=== PATIENT | female | born 1950 | race Caucasian/White ===

== ENCOUNTER 2017-03-19 11:48 | Observation (INO) | payer OTHER ==
[~2017-03-19] VITALS: Ht 154.9 cm; Wt 130.4 kg
[2017-03-19] MEDS ORDERED: FURO80TA2 PO (11:59)
[2017-03-19] MEDS ORDERED: LISI-542 PO (11:59)
[2017-03-19] MEDS ORDERED: NS 1,000 ML IV SCH (13:15)
[2017-03-19] MEDS ORDERED: PEPC1TAB4 PO (14:17)
[2017-03-19] MEDS ORDERED: SIME1CAP PO (14:17)
[2017-03-19 14:29] LABS: BASO % 0.2 % (0.0-1.0); EOS % 0.1 % (0.0-3.0); IMMATURE GRANULOCYTE % 0.5 % (0-0); LYMPH # 0.9 10^3/uL (1.5-4.5); LYMPH % 9.2 % (24.0-44.0); MEAN CORPUSCULAR HEMOGLOBIN 30.5 pg (27.0-33.0); MEAN CORPUSCULAR HGB CONC 32.6 g/dl (32.0-36.5); MEAN CORPUSCULAR VOLUME 93.6 fl (80.0-96.0); MONO # 0.5 10^3/uL (0.0-0.8); NEUTROPHILS # 8.5 10^3/uL (1.8-7.7); PLATELET COUNT, AUTOMATED 217 10^3/uL (150-450); RED CELL DISTRIBUTION WIDTH 13.3 % (11.5-14.5)
[2017-03-19 14:41] LABS: ALBUMIN/GLOBULIN RATIO 0.79 (1.00-1.93); ALKALINE PHOSPHATASE 73 U/L (45-117); ALT/SGPT 17 U/L (12-78); AMYLASE 29 U/L (25-115); ANION GAP 8 MEQ/L (8-16); AST/SGOT 14 U/L (15-37); BILIRUBIN,DIRECT 0.6 MG/DL (0.0-0.2); BILIRUBIN,TOTAL 2.5 MG/DL (0.2-1.0); BLOOD UREA NITROGEN 15 MG/DL (7-18); CALCIUM LEVEL 8.6 MG/DL (8.8-10.2); CARBON DIOXIDE LEVEL 26 MEQ/L (21-32); CHLORIDE LEVEL 107 MEQ/L (98-107); CREATININE FOR GFR 1.05 MG/DL (0.55-1.02); GLOMERULAR FILTRATION RATE 55.5 (>45); GLUCOSE, FASTING 102 MG/DL (80-110); POTASSIUM SERUM 3.9 MEQ/L (3.5-5.1); SODIUM LEVEL 141 MEQ/L (136-145); TOTAL PROTEIN 6.8 GM/DL (6.4-8.2)
--- NOTE | 2017-03-19 15:40 | REP ---
CT ABDOMEN AND PELVIS WITH IV CONTRAST: TECHNIQUE: Axial contrast enhanced images from the lung bases to the pubic symphysis using 100 mL Isovue 370 intravenous contrast material with multiplanar reformations. Visualized lung bases demonstrate no acute infiltrate. There is a large hiatal hernia. The liver is unremarkable. The patient has had a cholecystectomy. The spleen, adrenals, and pancreas are unremarkable. There are small cysts in the kidneys. There is no hydroureteronephrosis. There is no abdominal aortic aneurysm. There is no adenopathy. There is no free air or free fluid. No bowel wall thickening is seen. There is no evidence of appendicitis. There is a small supraumbilical anterior abdominal wall hernia containing some edematous fat. The left ovary is mildly enlarged with surrounding streaky inflammatory and edematous change. No pelvic mass is seen. The urinary bladder is unremarkable. IMPRESSION: Large hiatal hernia. Status post cholecystectomy. Small supraumbilical hernia in the midline containing edematous fat. Left ovary is somewhat enlarged with ill-defined streaky density surrounding it, having an edematous and inflamed appearance. No pelvic mass or adenopathy. Signed by Ritchie Hernandez MD 03/19/2017 07:55 P
[2017-03-19] MEDS ORDERED: FUROSEMIDE 100 MG/10 ML VIAL (J1940) IV ONE (15:45)
[2017-03-19 20:20] VITALS: BP 124/65
[2017-03-19] MEDS ORDERED: ONDANSETRON 4MG/2ML VIAL (J2405) IV PRN (21:15)
[2017-03-19] MEDS ORDERED: ACETAMINOPHEN TAB 650MG DOSE (2X325MG) PO ONE (21:15)
[2017-03-19] MEDS ORDERED: ISOVUE-370 76% 100ML VIAL (Q9967) ONE (21:31)
--- NOTE | 2017-03-19 23:04 | HPEPDOC ---
[facility] Medical History & Physical History and Physical Primary care provider: Dr. Noemy Cisneros Date of Admission: 03/19/2017 Attending: Dr. Calli Crawford CHIEF COMPLAINT: Generalized malaise and nausea 2-3 days HISTORY OF PRESENT ILLNESS: Miss Cruz is a 67-year-old female who has been suffering from subjective fevers, chills, nausea, lack of appetite, and headaches for the past 2-3 days. She presented to urgent care earlier today for what she believed to be an influenza infection. An abdominal x-ray was taken at urgent care and she was told that she had multiple fluid levels, therefore she was sent to the emergency department for further evaluation. In the emergency department an abdominal film was repeated read as nonspecific bowel gas pattern. A CT scan was performed and was noted to be normal with the exception of a mildly enlarged and edematous left ovary. Dr. Ramirez of [facility] was apparently contacted by the ED provider, and was supposedly going to come in to see and evaluate her, but I cannot verify this as the original ED provider who saw the patient is now off shift. Is unclear whether or not Dr. Underwood has come see and evaluate the patient has there is no note, at this point I would recommend only contacting him if her symptoms worsen by morning. It was also noted that she does have some lower extremity bilateral anterior tibial warmth and erythema , therefore she was given a dose of Ancef in the ED under the suspicion of cellulitis. When I came to see and evaluate the patient her son was in the room who indicated that they have been red for many months if not a year now, therefore I suspect that this is chronic venous stasis dermatitis rather than cellulitis, especially in the absence of leukocytosis or fever. A BNP was also noted to be high, therefore a dose of Lasix was administered, on my evaluation she does not have any symptoms of shortness of breath, orthopnea, paroxysmal nocturnal dyspnea, and on physical exam her lungs are completely clear with no crackles, therefore I do not feel that she is having an acute exacerbation of CHF. She will be admitted tonight for observation, I suspect that she does have a viral illness. ALLERGIES: Succinylcholine CODE STATUS: Full code PAST MEDICAL HISTORY: Essential hypertension Chronic lower extremity edema, she is not aware of a diagnosis of CHF this time. PAST SURGICAL HISTORY: section 2 Hernia repair Cholecystectomy Kidney stone removal SOCIAL HISTORY: She lives at home with her son and one cat. She denies any recent travel. She denies any recent sick contacts. She has never smoked, she does not drink any alcohol, she does not do any recreational drugs. She was a [id number] mother, and one never retires from this. FAMILY HISTORY: Her father had a heart attack and at the age of 55. Her mother has CHF but is still alive at the age of 90. She has a brother with multiple heart problems, but no heart attacks. There is no family history of diabetes, stroke, or cancer. REVIEW OF SYSTEMS: Constitutional: She admits to subjective fevers, chills, nausea, and loss of appetite. She denies rigors, night sweats, or weight loss. HEENT: Patient denies blurred or double vision, transient visual disturbances, postnasal drip, epistaxis, sore throat, difficulty chewing or swallowing food. Cardiovascular: Patient denies chest discomfort/pain, palpitations, exertional dyspnea, orthopnea, claudication. She does suffer from chronic bilateral lower extremity edema for which she is taking Lasix, and it is usually reasonably well -controlled. Respiratory: Patient denies dyspnea, wheezing, cough, hemoptysis, sputum production. Gastrointestinal: Patient admits to nausea. Denies vomiting, diarrhea, constipation, abdominal pain, melena, hematochezia, hematemesis, jaundice. Genitourinary: Patient denies any frequency, urgency, burning. She denies any lower abdominal pain/discomfort either. Integument: She admits to having chronic redness of her bilateral lower extremities on the shins, and this is confirmed by her son who is in the room PHYSICAL EXAMINATION: Vitals: Temperature 98.9, pulse 98, respiratory rate 18, blood pressure 133/72, pulse oximetry is 99% on room air General: Awake, alert, oriented 3. She is in mild distress. She is sitting upright in a chair in the room covered with a multitude of blankets. HEENT: Head normocephalic atraumatic, pupils equally reactive to light and accommodation, conjunctiva are pink, sclera are nonicteric, buccal mucosa is pink and moist with no lesions in the oropharynx. Dentition is poor. Hearing is grossly intact to conversation. Respiratory: Clear to auscultation bilaterally with no wheezes, rales, or rhonchi. Cardiovascular: Regular rate and rhythm, with no rubs, gallops, or murmur. Abdomen: She is diffusely mildly tender to deep palpation, I cannot elicit any additional or specific pain in the left lower quadrant. Otherwise, abdomen is soft, nondistended, no hepatosplenomegaly appreciated, although her exam is quite limited by her body habitus. Bowel sounds are hypoactive. Extremities: 2+ pulses in the radial and dorsalis pedis bilaterally. No evidence of clubbing or cyanosis. She does have 1+ pitting edema of the lower extremities bilaterally. She does have erythema of the bilateral anterior tibias , and on the left lower extremity there is a 1cm rounded irregularity in the skin which appears to be either a healed over ulcer or an old injury that has now healed, and I suspect it to be scar tissue. IMAGING: CT scan reveals a large hiatal hernia which the family is well aware of. Otherwise a small supraumbilical hernia in the midline containing edematous fat. Left ovary is somewhat enlarged with ill-defined streaky density surrounding it having an edematous and inflamed appearance. Otherwise no additional pelvic mass or adenopathy. There is no evidence of appendicitis. The liver is unremarkable. There is no hydroureteronephrosis. No bowel wall thickening or free air or free fluid. ASSESSMENT: 1. Viral illness 2. Hypertension 3. Chronic lower extremity edema 4. Venous stasis dermatitis of the bilateral lower extremities 5. DVT prophylaxis PLAN: Will provide supportive care for her abdominal viral illness. Flu swab was negative. Pain and nausea medications are available PRN. We will continue with her usual home dose of Lasix and lisinopril for her hypertension and chronic lower extremity edema. No acute treatment is required for her venous stasis dermatitis. DVT prophylaxis will be achieved with Lovenox. She is being admitted for observation, she'll be signed out to Dr. Reyes in the morning. If her symptoms worsen, consideration may be made to reach out to Dr. Underwood again in the morning regarding her mildly enlarged and edematous ovary, however she is not specifically complaining of any pain at this time and on exam I cannot localize any pain in the left lower quadrant anymore than the rest of her belly. My preceptor for this patient encounter was physically present in the building during the encounter and was fully available. As needed, all aspects of the patient interview, examination, medical decision making process, and medical care plan development were reviewed and approved by the preceptor. Preceptor is aware and concurs with the plan as stated in the body of this note and will attest to such by his/her cosignature. Vital Signs Vital Signs Date Time Temp Pulse Resp B/P (MAP) Pulse Ox O2 Delivery O2 Flow Rate FiO2 03/19/17 20:33 100.5 116 18 121/65 (83) 95 03/19/17 20:20 Room Air Laboratory Data Labs 24H Laboratory Tests 2 03/19/17 13:55: White Blood Count 10.0, Red Blood Count 4.20, Hemoglobin 12.8, Hematocrit 39.3, Mean Corpuscular Volume 93.6, Mean Corpuscular Hemoglobin 30.5, Mean Corpuscular Hemoglobin Concent 32.6, Red Cell Distribution Width 13.3, Platelet Count 217, Neutrophils (%) (Auto) 85.0H, Lymphocytes (%) (Auto) 9.2L, Monocytes (%) (Auto) 5.0, Eosinophils (%) (Auto) 0.1, Basophils (%) (Auto) 0.2, Neutrophils # (Auto) 8.5H, Lymphocytes # (Auto) 0.9L, Monocytes # (Auto) 0.5, Eosinophils # (Auto) 0.0, Basophils # (Auto) 0.0, Immature Granulocyte # (Auto) 0.1H, Nucleated Red Blood Cells % (auto) 0.0, Anion Gap 8, Glomerular Filtration Rate 55.5, Lactic Acid Level 1.3, Calcium Level 8.6L, Aspartate Amino Transf (AST/SGOT) 14L, Alanine Aminotransferase (ALT/SGPT) 17, Alkaline Phosphatase 73, Total Bilirubin 2.5H, Direct Bilirubin 0.6H, Total Creatine Kinase 34, Creatine Kinase MB 1.0, Creatine Kinase MB Relative Index 2.94, Troponin I < 0.02, LW-Qzf-G-Type Natriuretic Peptide 2283H, Total Protein 6.8, Albumin 3.0L, Albumin/Globulin Ratio 0.79L, Amylase Level 29, Lipase 80 03/19/17 14:29: Urine Appearance CLOUDYH, Urine Color ANGELA, Urine pH 5.0, Urine Specific Logan 1.026, Urine Protein 2+H, Urine Glucose (UA) NEGATIVE, Urine Ketones 1+H , Urine Urobilinogen 4.0H, Urine Bilirubin NEGATIVE, Urine Leukocyte Esterase NEGATIVE, Urine Blood 1+H, Urine Nitrite NEGATIVE, Urine WBC (Auto) 25H, Urine RBC (Auto) 6H, Urine Hyaline Casts (Auto) 1, Urine Bacteria (Auto) 1+H, Urine Squamous Epithelial Cells 11, Urine Mucus (Auto) SMALL, Urine Sperm (Auto) CBC/BMP Laboratory Tests 03/19/17 13:55 Red Blood Count 4.20, Mean Corpuscular Volume 93.6, Mean Corpuscular Hemoglobin 30.5, Mean Corpuscular Hemoglobin Concent 32.6, Red Cell Distribution Width 13.3 , Neutrophils (%) (Auto) 85.0 H, Lymphocytes (%) (Auto) 9.2 L, Monocytes (%) ( Auto) 5.0, Eosinophils (%) (Auto) 0.1, Basophils (%) (Auto) 0.2, Neutrophils # ( Auto) 8.5 H, Lymphocytes # (Auto) 0.9 L, Monocytes # (Auto) 0.5, Eosinophils # ( Auto) 0.0, Basophils # (Auto) 0.0 Microbiology Microbiology 03/19/17 Blood Culture, Received Pending 03/19/17 Blood Culture, Received Pending 03/19/17 Influenza Virus Type A Antigen - Final, Complete 03/19/17 Influenza Virus Type B Antigen - Final, Complete 03/19/17 Urine Culture, Received Pending Home Medications Scheduled Furosemide (Furosemide) 80 Mg Tab, 80 MG PO DAILY Lisinopril (Lisinopril) 5 Mg Tab, 5 MG PO DAILY Allergies Coded Allergies: Succinylcholine (Verified Allergy, Unknown, FAMILY HX OF ANAPHYLAXIS, 03/19) Attending Note Attending Note I have seen and examined the above patient and agree with the H and P as documented. ADE BALL DO Mar 19, 2017 23:04 CALLI CRAWFORD Mar 20, 2017 12:49
[2017-03-20 06:00] VITALS: BP 123/57
[2017-03-20 06:21] LABS: MEAN CORPUSCULAR HEMOGLOBIN 30.1 pg (27.0-33.0); MEAN CORPUSCULAR HGB CONC 32.2 g/dl (32.0-36.5); MEAN CORPUSCULAR VOLUME 93.4 fl (80.0-96.0); RED CELL DISTRIBUTION WIDTH 13.4 % (11.5-14.5); WHITE BLOOD COUNT 8.7 10^3/uL (4.0-10.0)
[2017-03-20 06:41] LABS: CALCIUM LEVEL 8.2 MG/DL (8.8-10.2); CREATININE FOR GFR 1.27 MG/DL (0.55-1.02); GLOMERULAR FILTRATION RATE 44.5 (>45); POTASSIUM SERUM 3.9 MEQ/L (3.5-5.1)
[2017-03-20] MEDS ORDERED: NS 1,000 ML IV SCH ×2 (07:30→08:15)
[2017-03-20] MEDS: ACETAMINOPHEN TAB 650MG DOSE (2X325MG) PO PRN ×2 (08:38→19:49)
[2017-03-20] MEDS: ENOXAPARIN 40 MG/0.4 ML SYRINGE (J1650) SC SCH (08:39)
[2017-03-20] MEDS ORDERED: LISINOPRIL 5 MG TAB PO SCH (09:00)
[2017-03-20] MEDS: CEFDINIR 300 MG CAP (OMNICEF) PO SCH ×2 (09:00→20:18)
[2017-03-20] MEDS ORDERED: FUROSEMIDE 80 MG TAB PO SCH (09:00)
[2017-03-20 11:25] LABS: CARCINOEMBRYONIC ANTIGEN 0.6 NG/ML (<2.5)
[2017-03-20 11:54] LABS: CA 125 5.7 U/ML (<30.2)
--- NOTE | 2017-03-20 12:12 | IPNPDOC ---
Text Note Date of Service The patient was seen on 03/20/17. NOTE Subjective: Patient is a 67 year old female with a PMHx of HTN and Chronic LE edema who presented to urgent care initially for chills and upset stomach. Patient received an abdominal XR that revealed there was multiple fluid levels and was sent to the ER. In the ER patient had a CT scan that revealed a large hiatal hernia and left ovarian swelling. In the ER patient was given a dose of Cefazolin for a suspected cellulitis, started on IV fluids and then given a dose of Lasix for an elevated BNP. Patient was seen and examined at the bedside. Currently she notes that she feels cold and is complaining of chills. Patient notes that she been having subjective fevers. She denies any cough, diarrhea, nausea, vomiting or dysuria. She notes that her LE are always swelling and notes that the redness may be new. Objective: Vitals (See below) General: Lying in bed, no acute distress, comfortable, AAOx3 HEENT: NC, AT CVS: RRR, +S1S2 Lungs: Fair air entry b/l, no appreciable crackles or wheezing Abdomen: Soft, ND, N Extremities: Bilateral LE edema - non-pitting, - Calf tenderness, Right leg with redness / warmth / tenderness; small area on Left anterior whittington with redness Assessment and plan: Chills / Fevers - possibly 2/2 bacteremia, etiology unclear; possibly 2/2 cellulitis - Presented from urgent care because she thought she had Influenza; had complaints of chills / nausea - Physical reveals that she has right LE redness / warmth, no purulence - Remains afebrile - Labs reveals no leukocytosis or lactic acidosis - Blood cultures pending - s/p Cefazolin in ER - Will start Cefdinir 300 BID x 10 days (Day #1) Left ovary edema - possibly non-specific, possibly 2/2 ovarian cancer - No abdominal pain - Physical without abdominal tenderness - CT abdomen / pelvis: large hiatal hernia, small supra-umbilical hernia ( edematous fat), left ovary somewhat enlarged, streaky denisty surrounding it, edematous / inflamed appearance - Case discussed with Dr. Ramirez ([employer] GENERATION); advised to get Pelvic US and check tumor markers (CEA/CA125/CA19-9) - Awaiting results of above Elevated Cr on possibly CKD3 - likely 2/2 pre-renal etiology, possibly intra- renal - Was given a dose of Lasix in the ER and then continued with Lasix PO - Will stop nephrotoxic medications (Lasix and Lisinopril) - Will start IV fluid hydration Chronic LE edema - No ECHO report available - Will check ECHO - Lasix on hold (re: Elevated Cr) HTN - Lisinopril on hold (re: Elevated Cr) Hiatal hernia - Denies any symptoms of acid reflux DVT prophylaxis - c/w Lovenox VS,Fishbone, I+O VS, Fishbone, I+O Laboratory Tests 03/19/17 13:55 Red Blood Count 4.20, Mean Corpuscular Volume 93.6, Mean Corpuscular Hemoglobin 30.5, Mean Corpuscular Hemoglobin Concent 32.6, Red Cell Distribution Width 13.3 , Neutrophils (%) (Auto) 85.0 H, Lymphocytes (%) (Auto) 9.2 L, Monocytes (%) ( Auto) 5.0, Eosinophils (%) (Auto) 0.1, Basophils (%) (Auto) 0.2, Neutrophils # ( Auto) 8.5 H, Lymphocytes # (Auto) 0.9 L, Monocytes # (Auto) 0.5, Eosinophils # ( Auto) 0.0, Basophils # (Auto) 0.0 03/20/17 06:08 Red Blood Count 3.92 L, Mean Corpuscular Volume 93.4, Mean Corpuscular Hemoglobin 30.1, Mean Corpuscular Hemoglobin Concent 32.2, Red Cell Distribution Width 13.4, Calcium Level 8.2 L Vital Signs Date Time Temp Pulse Resp B/P (MAP) Pulse Ox O2 Delivery O2 Flow Rate FiO2 03/20/17 06:00 98.1 79 16 123/57 (79) 98 Room Air I&O- Last 24 Hours up to 6 AM 03/21/17 06:00 Intake Total 262.3 ml Output Total 200 ml Balance 62.3 ml TJ FROST MD Mar 20, 2017 12:12
[2017-03-20 13:09] LABS: FREE T4 1.35 NG/DL (0.76-1.46)
[2017-03-20 14:00] VITALS: BP 138/95
--- NOTE | 2017-03-20 18:11 | REP ---
PELVIC ULTRASOUND: Real-time sonographic evaluation of the pelvis is performed. Transabdominal technique is utilized. The bladder measures 10.4 x 5.1 x 8.3 cm. The uterus measures 10.4 x 3.8 x 5.2 cm. Endometrial thickness is 10 mm. This is thickened in a postmenopausal patient. I cannot exclude endometrial hyperplasia or neoplasm. The right ovary could not be visualized. The left ovary measures 3.0 x 1.8 x 1.5 cm with no mass. There is no left ovarian torsion with blood seen in the left ovary, RI 0.61. IMPRESSION: Limited exam due to patient body habitus. The patient declined endovaginal ultrasound. Thickened endometrium at 10 mm could indicate endometrial hyperplasia or neoplasm. Left ovary measures 3.0 x 1.8 x 1.5 cm with no definite mass and no evidence of torsion. CT findings of inflammatory change involving the left ovary could indicate pelvic inflammatory disease. Signed by Ritchie Hernandez MD 03/23/2017 04:11 P
[2017-03-20 22:00] VITALS: BP 134/63
[2017-03-21 06:00] VITALS: BP 128/60
[2017-03-21 06:15] LABS: MEAN CORPUSCULAR HEMOGLOBIN 30.5 pg (27.0-33.0); MEAN CORPUSCULAR HGB CONC 32.9 g/dl (32.0-36.5); MEAN CORPUSCULAR VOLUME 92.8 fl (80.0-96.0); RED CELL DISTRIBUTION WIDTH 13.5 % (11.5-14.5); WHITE BLOOD COUNT 6.7 10^3/uL (4.0-10.0)
[2017-03-21 06:42] LABS: ANION GAP 7 MEQ/L (8-16); BLOOD UREA NITROGEN 18 MG/DL (7-18); CALCIUM LEVEL 8.5 MG/DL (8.8-10.2); CARBON DIOXIDE LEVEL 25 MEQ/L (21-32); CHLORIDE LEVEL 108 MEQ/L (98-107); CREATININE FOR GFR 0.96 MG/DL (0.55-1.02); GLOMERULAR FILTRATION RATE > 60.0 (>45); GLUCOSE, FASTING 98 MG/DL (80-110); MAGNESIUM LEVEL 2.1 MG/DL (1.8-2.4); POTASSIUM SERUM 4.3 MEQ/L (3.5-5.1); SODIUM LEVEL 140 MEQ/L (136-145)
[2017-03-21] MEDS: CEFDINIR 300 MG CAP (OMNICEF) PO SCH ×2 (08:37→20:30)
[2017-03-21] MEDS: ENOXAPARIN 40 MG/0.4 ML SYRINGE (J1650) SC SCH (08:37)
--- NOTE | 2017-03-21 10:57 | IPNPDOC ---
Text Note Date of Service The patient was seen on 03/21/17. NOTE Subjective: Patient is a 67 year old female with a PMHx of HTN and Chronic LE edema who presented to urgent care initially for chills and upset stomach. Patient received an abdominal XR that revealed there was multiple fluid levels and was sent to the ER. In the ER patient had a CT scan that revealed a large hiatal hernia and left ovarian swelling. In the ER patient was given a dose of Cefazolin for a suspected cellulitis, started on IV fluids and then given a dose of Lasix for an elevated BNP. Patient was seen and examined at the bedside. She note that her right foot is still unchanged. She has been out of bed and in the chair yesterday and will be working with physical therapy today. She denied abdominal pain, constipation, diarrhea, dysuria or nausea / vomiting. Objective: Vitals (See below) General: Lying in bed, no acute distress, comfortable, AAOx3 HEENT: NC, AT CVS: RRR, +S1S2 Lungs: Fair air entry b/l, no appreciable crackles or wheezing Abdomen: Soft, ND, NT Extremities: Bilateral LE edema - non-pitting, - Calf tenderness, Right leg with redness (appears decreased) / no appreciable warmth / no tenderness; small area on Left anterior whittington with redness Assessment and plan: Chills / Fevers - possibly 2/2 bacteremia - etiology unclear; possibly 2/2 cellulitis - Presented from urgent care because she thought she had Influenza; had complaints of chills / nausea - Physical reveals that she has right LE redness / warmth, no purulence - Has had febrile episodes yesterday during the day; no fevers noted this morning - Labs reveals no leukocytosis or lactic acidosis - Blood cultures negative at 24 hours - s/p Cefazolin in ER - c/w Cefdinir 300 BID x 10 days (Day #2) Left ovary edema - unlikely 2/2 ovarian cancer, less likely 2/2 PID - No abdominal pain - Physical without abdominal tenderness - CEA/CA125/CA19-9 all within normal limits - CT abdomen / pelvis: large hiatal hernia, small supra-umbilical hernia ( edematous fat), left ovary somewhat enlarged, streaky denisty surrounding it, edematous / inflamed appearance - US pelvic 03/20: Revealed thickening of Endometrium; Possible PID - Discussed with Dr. Ramirez ([employer]); will be on consult; appreciate their input Endometrial thickening - possibly 2/2 endometrial hyperplasia, possibly 2/2 endometrial cancer - May require biopsy to confirm diagnosis, depending on patient's consent - Discussed with Dr. Ramirez ([employer] INST[employer]); will be on consult; appreciate their input Elevated Cr on possibly CKD3 - likely 2/2 pre-renal etiology, possibly intra- renal - s/p Lasix in the ER and then continued with Lasix PO - s/p nephrotoxic medications, will continue to hold Lasix - s/p IV fluid hydration Chronic LE edema - No ECHO report available - ECHO pending - Lasix on hold HTN - BP appears well controlled currently - Lisinopril on hold Hiatal hernia - Denies any symptoms of acid reflux DVT prophylaxis - c/w Lovenox VS,Fishbone, I+O VS, Fishbone, I+O Laboratory Tests 03/21/17 06:01 Red Blood Count 3.77 L, Mean Corpuscular Volume 92.8, Mean Corpuscular Hemoglobin 30.5, Mean Corpuscular Hemoglobin Concent 32.9, Red Cell Distribution Width 13.5, Calcium Level 8.5 L Vital Signs Date Time Temp Pulse Resp B/P (MAP) Pulse Ox O2 Delivery O2 Flow Rate FiO2 03/21/17 06:00 99.6 94 18 128/60 (82) 98 Room Air TJ FROST MD Mar 21, 2017 10:57
[2017-03-21 14:00] VITALS: BP 128/59
[2017-03-21] MEDS: ACETAMINOPHEN TAB 650MG DOSE (2X325MG) PO PRN (20:30)
[2017-03-21 22:00] VITALS: BP 123/58
[2017-03-22 06:00] VITALS: BP 117/71
[2017-03-22 06:15] LABS: MEAN CORPUSCULAR HEMOGLOBIN 30.1 pg (27.0-33.0); MEAN CORPUSCULAR HGB CONC 32.3 g/dl (32.0-36.5); MEAN CORPUSCULAR VOLUME 93.3 fl (80.0-96.0); RED CELL DISTRIBUTION WIDTH 13.4 % (11.5-14.5); WHITE BLOOD COUNT 6.6 10^3/uL (4.0-10.0)
[2017-03-22 06:22] LABS: ANION GAP 5 MEQ/L (8-16); BLOOD UREA NITROGEN 18 MG/DL (7-18); CALCIUM LEVEL 8.7 MG/DL (8.8-10.2); CARBON DIOXIDE LEVEL 29 MEQ/L (21-32); CHLORIDE LEVEL 107 MEQ/L (98-107); CREATININE FOR GFR 0.97 MG/DL (0.55-1.02); GLOMERULAR FILTRATION RATE > 60.0 (>45); GLUCOSE, FASTING 106 MG/DL (80-110); MAGNESIUM LEVEL 2.1 MG/DL (1.8-2.4); POTASSIUM SERUM 3.8 MEQ/L (3.5-5.1); SODIUM LEVEL 141 MEQ/L (136-145)
[2017-03-22] MEDS: ENOXAPARIN 40 MG/0.4 ML SYRINGE (J1650) SC SCH (08:15)
[2017-03-22] MEDS: CEFDINIR 300 MG CAP (OMNICEF) PO SCH ×2 (08:15→21:08)
--- NOTE | 2017-03-22 12:44 | IPNPDOC ---
Text Note Date of Service The patient was seen on 03/22/17. NOTE Subjective: Patient is a 67 year old female with a PMHx of HTN and Chronic LE edema who presented to urgent care initially for chills and upset stomach. Patient received an abdominal XR that revealed there was multiple fluid levels and was sent to the ER. In the ER patient had a CT scan that revealed a large hiatal hernia and left ovarian swelling. In the ER patient was given a dose of Cefazolin for a suspected cellulitis, started on IV fluids and then given a dose of Lasix for an elevated BNP. Patient was seen and examined at the bedside. Her right foot shows significant improvement over the 48 hours. Although she continues to have fevers. We will continue with the existing antibiotic course until her fevers resolve. Objective: Vitals (See below) General: Lying in bed, no acute distress, comfortable, AAOx3 HEENT: NC, AT CVS: RRR, +S1S2 Lungs: Fair air entry b/l, no appreciable crackles or wheezing Abdomen: Soft, ND, NT Extremities: Bilateral LE edema - non-pitting, - Calf tenderness, Redness improved / no appreciable warmth / no tenderness; small area on Left anterior whittington with redness Assessment and plan: Chills / Fevers - possibly 2/2 cellulitis, no evidence of bacteremia - Presented from urgent care because she thought she had Influenza; had complaints of chills / nausea - Physical reveals that she has right LE redness / warmth, no purulence - has shown improvement - Has had febrile episodes yesterday during the day; no fevers noted this morning - Labs reveals no leukocytosis or lactic acidosis - Blood cultures negative at 24 hours - s/p Cefazolin in ER - c/w Cefdinir 300 BID x 10 days (Day #3) Left ovary edema - unlikely 2/2 ovarian cancer, less likely 2/2 PID - No abdominal pain and physical without abdominal tenderness - CEA/CA125/CA19-9 all within normal limits - CT abdomen / pelvis 03/19: large hiatal hernia, small supra-umbilical hernia ( edematous fat), left ovary somewhat enlarged, streaky denisty surrounding it, edematous / inflamed appearance - US pelvic 03/20: Revealed thickening of Endometrium; Possible PID - Discussed with Dr. Ramirez (GENETIC COUNSELOR); consult pending Endometrial thickening - possibly 2/2 endometrial hyperplasia, possibly 2/2 endometrial cancer - May require biopsy to confirm diagnosis, depending on patient's consent - Discussed with Dr. Ramirez (GENETIC COUNSELOR); consult pending s/p Elevated Cr on possibly CKD3 - likely 2/2 pre-renal etiology, possibly intra -renal - s/p Lasix in the ER and then continued with Lasix PO - s/p nephrotoxic medications, will continue to hold Lasix - s/p IV fluid hydration - Will restart home dose of Lasix daily Chronic LE edema - No ECHO report available - ECHO pending HTN - BP appears well controlled without medications - Lisinopril still on hold Hiatal hernia - Denies any symptoms of acid reflux DVT prophylaxis - c/w Lovenox VS,Fishbone, I+O VS, Fishbone, I+O Laboratory Tests 03/22/17 05:53 Red Blood Count 4.05, Mean Corpuscular Volume 93.3, Mean Corpuscular Hemoglobin 30.1, Mean Corpuscular Hemoglobin Concent 32.3, Red Cell Distribution Width 13.4 , Calcium Level 8.7 L Vital Signs Date Time Temp Pulse Resp B/P (MAP) Pulse Ox O2 Delivery O2 Flow Rate FiO2 03/22/17 06:00 98.8 63 18 117/71 (86) 96 Room Air I&O- Last 24 Hours up to 6 AM 03/23/17 06:00 Intake Total 160 ml Balance 160 ml TJ FROST MD Mar 22, 2017 12:44
[2017-03-22] MEDS: ACETAMINOPHEN TAB 650MG DOSE (2X325MG) PO PRN (13:22)
[2017-03-22] MEDS: FUROSEMIDE 40 MG TAB PO SCH (13:22)
[2017-03-22 14:00] VITALS: BP 127/68
--- NOTE | 2017-03-22 20:17 | CR ---
DATE OF CONSULTATION: 03/22/[address] Reyes for a consult enlarged left ovary. Ms. Cruz is a 67-year female who is admitted with what appeared to be upper respiratory symptoms, cannot rule out congestive heart failure (CHF). She does have a history of chronic hypertension, venous stasis and chronic lower extremity edema. She presented to the emergency room on 03/19/[address] scan done in the emergency room shows an enlarged left ovary with questionable paraovarian edema. No other adnexal mass noted. She is being evaluated in the hospital. She has a low grade temperature. I was consulted the day prior for this and ordered an ultrasound and tumor markers. As per the attending, the tumor markers were negative, however, the ultrasound still shows an enlarged ovary with no adnexal mass. No free fluid. The incidental finding of an enlarged uterus was found with an endometrial thickness of 10 mm. The patient has no other SALES DEVELOPMENT EXECUTIVE symptoms. She does have a history of hiatal hernia which is well-known which most likely was the cause of her upper abdominal pain. The patient also upon my evaluation of the patient gave a history of having a polypectomy and dilatation and curettage (D and) C over 4 years ago. She has not had any bleeding since then, no other SALES DEVELOPMENT EXECUTIVE issues at present. Her full chart reviewed, as well as her history. She does have a history of essential hypertension, chronic lower extremity edema with questionable CHF. PAST SURGICAL HISTORY: Significant for section times two, a D and C with polypectomy, hernia repair, cholecystectomy and kidney stone removal. SOCIAL HISTORY: She lives with her son. Denies any alcohol, drugs or cigarette smoking. FAMILY HISTORY: Significant for her coronary artery disease, diabetes and stroke. CT scan done on 03/19/2017, shows a large hiatal hernia. The patient is status post cholecystectomy. She does have a supraumbilical hernia. The left ovary was somewhat enlarged, ill-defined, and appeared edematous. No other adnexal mass or adenopathy noted. Ultrasound done on 03/20/2017, shows a uterus that was approximately 10.4 cm in size with an endometrial stripe of 10 mm. The left ovary measures 3 x 1.8 x 1.5 with no mass. There is no left ovarian torsion with good flow noted. Resistive index on the ovary was 0.61. The right ovary was not visualized. Otherwise the ultrasound was within normal limits. Labs reviewed. Her white count ranges on admission from 10 to now 6.6. Hemoglobin and hematocrit 12.8/39.3, now 12.2/37.8. Platelet counts of 217 on admission, now 203. PHYSICAL EXAMINATION: Vital signs: Temperature is 98.8. Respiration is 18, pulse is 63. Blood pressure 117/71. The patient was in the room with her son. She appeared in no acute distress. The abdomen was soft, nontender and nondistended. Pelvic exam deferred. ASSESSMENT: 1. Thickened endometrium on ultrasound. No evidence of any bleeding. 2. Normal-appearing left ovary on ultrasound. No free fluid. No adnexal mass. 3. Upper respiratory symptoms versus congestive heart failure (CHF). Currently being evaluated by hospitalist. PLAN: Patient and her son counseled extensively. Need to have outpatient evaluation of the endometrial lining discussed. Given that the patient is menopausal with a lining of 10 mm, even in light of no bleeding, she might benefit from an endometrial sampling which can be scheduled as an outpatient once the patient is fully optimized medically. At this point no further SALES DEVELOPMENT EXECUTIVE intervention is needed. Once she is discharged, patient and her son wants to go back to her primary doctor, Dr. Noemy Cisneros, and will obtain a referral to be seen either through my office or to the previous BUSINESS SUPPORT COORDINATOR who did her D and C and polypectomy. She is given the information from my office if she wishes to followup with my office. TIME SPENT IN CONSULTATION: 50-60 minutes. JITENDRA
[2017-03-22 22:00] VITALS: BP 131/57
--- NOTE | 2017-03-23 05:58 | ECHO ---
DATE OF PROCEDURE: 03/22/2017 REFERRING PHYSICIAN: Dr. Katya Reyes. INDICATION: Localized edema. HEIGHT: 61 inches. WEIGHT: 283 pounds. 2D MEASUREMENTS: Aortic root: 3.2 cm Proximal ascending aorta: 2.8 cm Left atrium: 3.2 cm Ventricular septum: 0.86 cm Posterior wall: 1.10 cm Left ventricle diastole: 4.6 cm DOPPLER MEASUREMENTS: Aortic valve velocity: 183 cm/s LVOT velocity: 111 cm/s LVOT VTI: 20.1 cm Mitral E velocity: 120 cm/s Mitral A velocity: 83.9 cm/s Mitral deacceleration time: 83.9 ms Very mild tricuspid regurgitation. Estimated right ventricular systolic pressure 33 mmHg assuming an atrial pressure of 5 mmHg. Pulmonary artery systolic pressure 42 mmHg by pulmonary acceleration time method. MITRAL ANNULAR TISSUE DOPPLER: E-prime septal: 6.4 cm/s E-prime lateral: 8.3 cm/s DESCRIPTION: Rhythm was sinus. No pericardial effusion. This was a moderately technically difficult echocardiogram. No pericardial effusion. This was a 2D, M-mode, color flow Doppler and pulsed wave Doppler examination and included mitral annular tissue Doppler. CONCLUSIONS: 1. Normal left ventricle internal dimensions and wall thickness. No apparent regional wall motion abnormalities of the left ventricle. Normal LV systolic function. LVEF 65-70% by visual estimate. Probably normal diastolic function for age. 2. Suggestive of moderate elevation of pulmonary artery systolic pressure. 3. Otherwise technically difficult echocardiogram. Technically difficulty subcostal views; unable to adequately visualize in the inferior vena cava.
[2017-03-23 06:00] VITALS: BP 124/71
[2017-03-23 07:28] LABS: MEAN CORPUSCULAR HEMOGLOBIN 30.3 pg (27.0-33.0); MEAN CORPUSCULAR HGB CONC 32.3 g/dl (32.0-36.5); MEAN CORPUSCULAR VOLUME 93.9 fl (80.0-96.0); RED CELL DISTRIBUTION WIDTH 13.7 % (11.5-14.5); WHITE BLOOD COUNT 7.2 10^3/uL (4.0-10.0)
[2017-03-23 07:58] LABS: CALCIUM LEVEL 8.6 MG/DL (8.8-10.2); CREATININE FOR GFR 1.04 MG/DL (0.55-1.02); GLOMERULAR FILTRATION RATE 56.1 (>45); POTASSIUM SERUM 3.7 MEQ/L (3.5-5.1)
[2017-03-23] MEDS: FUROSEMIDE 40 MG TAB PO SCH (08:20)
[2017-03-23] MEDS: CEFDINIR 300 MG CAP (OMNICEF) PO SCH (08:20)
[2017-03-23] MEDS: ENOXAPARIN 40 MG/0.4 ML SYRINGE (J1650) SC SCH (08:21)
[2017-03-23] MEDS ORDERED: CEFD300CAP PO (10:00)
[2017-03-23] MEDS ORDERED: FURO40TA2 PO (10:00)
[2017-03-23 14:00] VITALS: BP 118/71
[2017-03-23] MEDS: ACETAMINOPHEN TAB 650MG DOSE (2X325MG) PO PRN (15:10)
--- NOTE | 2017-03-23 17:13 | DSES ---
DATE OF ADMISSION: 03/19/2017 DATE OF DISCHARGE: 03/23/2017 ATTENDING PHYSICIAN: Katya Reyes MD PRIMARY CARE PROVIDER: Noemy Cisneros DO REFERRING PHYSICIAN: None. CONSULTING PHYSICIAN: Mason Ramirez DO of obstetrics/gynecology. CONDITION ON DISCHARGE: Stable. FINAL DIAGNOSIS: Fevers, possibly secondary to cellulitis. No evidence of bacteremia. PROCEDURES: None. HISTORY OF PRESENT ILLNESS: Patient is a 67-year-old female with a past medical history of hypertension, chronic lower extremity edema, who presented to urgent care initially for chills and [place] stomach. Patient received an abdominal x-ray that revealed that there was multiple fluid levels and was sent to the emergency room (ER). In the ER, patient received a CT scan that revealed a large hiatal hernia and left ovarian swelling. In the ER, patient was given a dose of cephazolin for suspected cellulitis, started on IV fluids, and then given a subsequent dose of Lasix for an elevated BNP. HOSPITAL COURSE: 1. Chills plus fevers, possibly secondary to cellulitis. No evidence of bacteremia was noted. Presented from urgent care because she thought she had influenza. Had complaints of chills and nausea. Physical revealed that she had right lower extremity redness, warmth, no purulence, and this has shown significant improvement throughout the hospital course. She has had febrile episodes on 03/20/2017, however no fevers have been noted since 03/21/2017, when it was 101.3. Labs reveal no leukocytosis, no lactic acidosis. Blood cultures have been negative for 72 hours. Patient has received cephazolin in the ER and she has been continued with cefdinir 300 mg by mouth twice a day for 10 days total duration, today fish day #4. We will continue these antibiotics as an outpatient. 2. Left ovary edema, unlikely secondary to ovarian cancer, less likely secondary to pelvic inflammatory disease. No abdominal pain was noted and physical is without any abdominal tenderness. CA125 and CA19-9 were acquired and were all within normal limits. CT abdomen and pelvis on 03/19/2017, was acquired and revealed a large hiatal hernia, small supraumbilical hernia which contained edematous fat, left ovary was somewhat enlarged, streaky density surrounding it, edematous and inflamed in appearance. Ultrasound of pelvis was acquired on 03/20/2017, which revealed thickening of the endometrium and possibly pelvic inflammatory disease. Case was discussed with Dr. Ramirez, who has been on consultation and has discussed with the patient options moving forward. 3. Endometrial thickening, possibly secondary to endometrial hyperplasia, possibly secondary to endometrial cancer. The patient may require a biopsy to confirm the diagnosis and this case has been discussed with Dr. Ramirez and the patient. Patient will be following up with INVESTMENT REPRESENTATIVE as an outpatient. Dr. Ramirez has indicated to the patient that they are free to followup with him or their own INVESTMENT REPRESENTATIVE physician if they choose. 4. Status post elevated creatinine, possibly from chronic kidney disease (CKD) stage III, likely secondary to prerenal etiology, possibly intrarenal etiology. She is status post Lasix in the ER, status post nephrotoxic medications, status post IV fluid hydration. Patient has been restarted on a lower dose of Lasix as an outpatient. 5. Chronic lower extremity edema. No echocardiogram is available. Echo report was ordered and revealed left ventricular ejection fraction of 65-70%, probably normal diastolic function for age. There is also suggestion of moderate elevation of pulmonary artery systolic pressure indicative of pulmonary hypertension. 6. Hypertension. Blood pressure appears well controlled without medications. Lisinopril has been kept on hold. 7. Hiatal hernia. Denies any symptoms of acid reflux. 8. Deep venous thrombosis (DVT) prophylaxis. She has been put on Lovenox. DISCHARGE MEDICATIONS: Patient has been discharged home with the following medication list: - cefdinir 300 mg by mouth twice a day - furosemide 40 mg by mouth daily Stopped medications include: - furosemide 80 mg by mouth daily - lisinopril DISCHARGE INSTRUCTIONS: Patient has been advised to followup with her primary care provider as well as INVESTMENT REPRESENTATIVE within the next 7 days. She has been advised to remain compliant with treatment plan and medications and to return to the emergency room if she experiences any problems. TIME SPENT ON DISCHARGE: Greater than 35 minutes.
== END 2017-03-23 16:40 | disposition home or self-care (01) ==
LOC: M ED 11:48 → M ED INP 21:30 → M MSPAV 22:13
PROVIDERS: ADMIT Hospitalist; ATTEND Internal Medicine
DX: R50.9 Fever, unspecified (principal); R11.0 Nausea; I10 Essential (primary) hypertension; R53.81 Other malaise; L03.116 Cellulitis of left lower limb; R19.04 Left lower quadrant abdominal swelling, mass and lump; N85.00 Endometrial hyperplasia, unspecified; R60.0 Localized edema; K44.9 Diaphragmatic hernia without obstruction or gangrene; Z79.899 Other long term (current) drug therapy
CPT/HCPCS: 36415; 74177; 76856; 80048; 80076; 81001; 82150; 82378; 82550; 82553; 83605; 83690; 83735; 83880; 84439; 84443; 84480; 85025; 85027; 86301; 86304; 87040; 87086; 87804; 93306; 93976; 96361; 96372; 96374; 96375; 97162; 99283; J0690; J1650; J1940; Q9967

== ENCOUNTER → 2017-03-19 | Outpatient (CLI) | payer OTHER ==
[~2017-03-19] MED LIST: CEFD300CAP PO; FURO40TA2 PO; FURO80TA2 PO; LISI-542 PO; PEPC1TAB4 PO; SIME1CAP PO
--- NOTE | 2017-03-19 11:00 | REP ---
ABDOMEN, FLAT AND UPRIGHT, PA CHEST, FIVE VIEWS: HISTORY: Nausea. Air is present in small and large intestine. Several air fluid levels are present. There are no dilated loops of intestine. There is no pneumoperitoneum. Surgical clips are present in the right upper quadrant. The lungs are clear. A hiatal hernia is present. IMPRESSION: Nonspecific bowel gas pattern. Signed by Carlos Manuel Buchanan MD 03/19/2017 11:20 A
[2017-03-19 13:20] LABS: BASO % 0.4 % (0.0-1.0); IMMATURE GRANULOCYTE % 0.3 % (0-0); LYMPH # 0.9 10^3/uL (1.5-4.5); MEAN CORPUSCULAR HEMOGLOBIN 30.7 pg (27.0-33.0); MEAN CORPUSCULAR HGB CONC 32.5 g/dl (32.0-36.5); MEAN CORPUSCULAR VOLUME 94.4 fl (80.0-96.0); MONO # 0.4 10^3/uL (0.0-0.8); MONO % 3.9 % (0.0-5.0); NEUTROPHILS # 8.8 10^3/uL (1.8-7.7); NEUTROPHILS % 86.4 % (36.0-66.0); PLATELET COUNT, AUTOMATED 224 10^3/uL (150-450); RED CELL DISTRIBUTION WIDTH 13.3 % (11.5-14.5); WHITE BLOOD COUNT 10.2 10^3/uL (4.0-10.0)
[2017-03-19 13:25] LABS: ALBUMIN 3.2 GM/DL (3.2-5.2); ALBUMIN/GLOBULIN RATIO 0.78 (1.00-1.93); BILIRUBIN,TOTAL 2.6 MG/DL (0.2-1.0); CALCIUM LEVEL 8.9 MG/DL (8.8-10.2); CREATININE FOR GFR 1.1 MG/DL (0.55-1.02); GLOMERULAR FILTRATION RATE 52.6 (>45); POTASSIUM SERUM 4.2 MEQ/L (3.5-5.1); TOTAL PROTEIN 7.3 GM/DL (6.4-8.2)
== END ==
LOC: M WUC 09:29
PROVIDERS: ATTEND Physician Assistant
DX: R50.9 Fever, unspecified (principal); R11.0 Nausea

== ENCOUNTER → 2017-03-24 | Outpatient (REF) | payer OTHER | LOC: M LAB REF 16:40 | PROVIDERS: ATTEND Internal Medicine | DX: L03.114 Cellulitis of left upper limb (principal) ==

== ENCOUNTER 2017-10-18 11:56 | Inpatient (IN) | payer OTHER, MEDICARE ==
[2017-10-18 12:17] LABS: BASO # 0.1 10^3/uL (0.0-0.2); BASO % 0.7 % (0.0-1.0); EOS % 0.4 % (0.0-3.0); HEMATOCRIT 41.2 % (36.0-47.0); IMMATURE GRANULOCYTE % 0.3 % (0-3.0); LYMPH # 1.5 10^3/uL (1.5-4.5); LYMPH % 19.9 % (24.0-44.0); MEAN CORPUSCULAR HEMOGLOBIN 30.1 pg (27.0-33.0); MEAN CORPUSCULAR HGB CONC 31.6 g/dl (32.0-36.5); MEAN CORPUSCULAR VOLUME 95.4 fl (80.0-96.0); MONO # 0.5 10^3/uL (0.0-0.8); MONO % 6.3 % (0.0-5.0); NEUTROPHILS # 5.5 10^3/uL (1.8-7.7); NEUTROPHILS % 72.4 % (36.0-66.0); PLATELET COUNT, AUTOMATED 248 10^3/uL (150-450); RED BLOOD COUNT 4.32 10^6/uL (4.00-5.40); RED CELL DISTRIBUTION WIDTH 14.6 % (11.5-14.5); WHITE BLOOD COUNT 7.6 10^3/uL (4.0-10.0)
[2017-10-18] MEDS: ASPIRIN 81 MG CHEW TABLET PO (12:20)
[2017-10-18] MEDS: METOPROLOL 5 MG/5 ML VIAL IV ×6 (12:28→13:06)
[2017-10-18] MEDS: METOPROLOL TART 25 MG TABLET PO ×3 (12:29→19:35)
[2017-10-18 12:42] LABS: LACTIC ACID SEPSIS PROTOCOL 2.2 MMOL/L (0.4-2.0)
[2017-10-18 12:53] LABS: ANION GAP 4 MEQ/L (8-16); BLOOD UREA NITROGEN 19 MG/DL (7-18); CARBON DIOXIDE LEVEL 28 MEQ/L (21-32); CHLORIDE LEVEL 113 MEQ/L (98-107); CPK CREATINE PHOSPHOKINASE 33 U/L (26-192); CREATININE FOR GFR 0.89 MG/DL (0.55-1.30); GLOMERULAR FILTRATION RATE > 60.0 (>45); GLUCOSE, FASTING 101 MG/DL (70-100); POTASSIUM SERUM 4.4 MEQ/L (3.5-5.1); SODIUM LEVEL 145 MEQ/L (136-145); TROPONIN I < 0.02 NG/ML (< 0.10)
[2017-10-18 12:58] LABS: CK-MB VALUE MASS < 1.0 NG/ML (<3.6); MB/CK RELATIVE INDEX 3.03 (< OR =4); NT-PRO BNP 5336 PG/ML (<125)
[2017-10-18] MEDS: FUROSEMIDE 40 MG/4 ML VIAL (J1940) IV (13:25)
[2017-10-18] MEDS: DIGOXIN INJ 0.5 MG/2 ML AMP (J1160) IV ×2 (15:13→19:35)
[2017-10-18] MEDS ORDERED: ONDANSETRON 4MG/2ML VIAL (J2405) IV (15:45)
[2017-10-18 18:35] LABS: CK-MB VALUE MASS < 1.0 NG/ML (<3.6); CPK CREATINE PHOSPHOKINASE 33 U/L (26-192); MB/CK RELATIVE INDEX 3.03 (< OR =4); TROPONIN I < 0.02 NG/ML (< 0.10)
[2017-10-18 18:37] LABS: FREE THYROXINE INDEX 4.3 % (1.3-4.8); T UPTAKE 34 % (30-39); THYROXINE (T4) 12.6 UG/DL (4.5-12.0)
[2017-10-18] MEDS: SENOKOT S TAB PO (20:32)
[2017-10-18] MEDS: APIXABAN 5 MG TAB (ELIQUIS) PO (20:32)
[2017-10-19] MEDS: DIGOXIN INJ 0.5 MG/2 ML AMP (J1160) IV
[2017-10-19 00:30] LABS: CK-MB VALUE MASS < 1.0 NG/ML (<3.6); CPK CREATINE PHOSPHOKINASE 30 U/L (26-192); MB/CK RELATIVE INDEX 3.33 (< OR =4); TROPONIN I < 0.02 NG/ML (< 0.10)
[2017-10-19 05:51] LABS: HEMATOCRIT 36.4 % (36.0-47.0); HEMOGLOBIN 11.6 g/dl (12.0-15.5); MEAN CORPUSCULAR HEMOGLOBIN 29.6 pg (27.0-33.0); MEAN CORPUSCULAR HGB CONC 31.9 g/dl (32.0-36.5); MEAN CORPUSCULAR VOLUME 92.9 fl (80.0-96.0); PLATELET COUNT, AUTOMATED 215 10^3/uL (150-450); RED BLOOD COUNT 3.92 10^6/uL (4.00-5.40); RED CELL DISTRIBUTION WIDTH 14.2 % (11.5-14.5); WHITE BLOOD COUNT 7.8 10^3/uL (4.0-10.0)
[2017-10-19] MEDS: METOPROLOL TART 25 MG TABLET PO ×2 (05:51)
[2017-10-19 06:00] LABS: INR 1.29; PROTHROMBIN TIME 16.3 SECONDS (12.4-14.5)
[2017-10-19 06:11] LABS: ANION GAP 6 MEQ/L (8-16); BLOOD UREA NITROGEN 17 MG/DL (7-18); CALCIUM LEVEL 8.2 MG/DL (8.8-10.2); CARBON DIOXIDE LEVEL 27 MEQ/L (21-32); CHLORIDE LEVEL 111 MEQ/L (98-107); CREATININE FOR GFR 0.89 MG/DL (0.55-1.30); GLOMERULAR FILTRATION RATE > 60.0 (>45); GLUCOSE, FASTING 84 MG/DL (70-100); SODIUM LEVEL 144 MEQ/L (136-145)
[2017-10-19] MEDS: APIXABAN 5 MG TAB (ELIQUIS) PO ×2 (09:26→20:33)
[2017-10-19] MEDS: FUROSEMIDE 40 MG/4 ML VIAL (J1940) IV ×2 (09:26→17:00)
[2017-10-19] MEDS: SENOKOT S TAB PO ×2 (09:26→20:33)
[2017-10-19] MEDS: METOPROLOL TART 50 MG TAB PO ×3 (13:27→23:49)
[2017-10-19] MEDS: TORSEMIDE 20 MG TAB PO (18:24)
[2017-10-20 05:20] LABS: HEMATOCRIT 37.6 % (36.0-47.0); HEMOGLOBIN 12.1 g/dl (12.0-15.5); MEAN CORPUSCULAR HEMOGLOBIN 29.7 pg (27.0-33.0); MEAN CORPUSCULAR HGB CONC 32.2 g/dl (32.0-36.5); MEAN CORPUSCULAR VOLUME 92.4 fl (80.0-96.0); PLATELET COUNT, AUTOMATED 226 10^3/uL (150-450); RED BLOOD COUNT 4.07 10^6/uL (4.00-5.40); RED CELL DISTRIBUTION WIDTH 13.9 % (11.5-14.5)
[2017-10-20 05:39] LABS: ANION GAP 8 MEQ/L (8-16); BLOOD UREA NITROGEN 22 MG/DL (7-18); CALCIUM LEVEL 8.5 MG/DL (8.8-10.2); CARBON DIOXIDE LEVEL 31 MEQ/L (21-32); CHLORIDE LEVEL 106 MEQ/L (98-107); CREATININE FOR GFR 1.03 MG/DL (0.55-1.30); GLOMERULAR FILTRATION RATE 56.7 (>45); GLUCOSE, FASTING 95 MG/DL (70-100); MAGNESIUM LEVEL 1.9 MG/DL (1.8-2.4); POTASSIUM SERUM 3.6 MEQ/L (3.5-5.1); SODIUM LEVEL 145 MEQ/L (136-145)
[2017-10-20] MEDS: METOPROLOL TART 50 MG TAB PO ×4 (05:59→23:52)
[2017-10-20] MEDS: SENOKOT S TAB PO ×2 (08:36→20:12)
[2017-10-20] MEDS: TORSEMIDE 20 MG TAB PO ×2 (08:36→16:19)
[2017-10-20] MEDS: APIXABAN 5 MG TAB (ELIQUIS) PO ×2 (08:36→20:12)
[2017-10-20 15:57] LABS: FREE T3 2.5 PG/ML (2.2-4.0)
[2017-10-20 15:57] LABS: PROLACTIN 14.7 NG/ML
[2017-10-20 15:58] LABS: FOLLICLE STIMULATING HORMONE 31.4 mIU/mL; LUTEINIZING HORMONE 45.9 mIU/mL
[2017-10-20] MEDS: ACETAMINOPHEN TAB 650MG DOSE (2X325MG) PO (20:12)
[2017-10-21 04:49] LABS: HEMATOCRIT 39.7 % (36.0-47.0); HEMOGLOBIN 12.9 g/dl (12.0-15.5); MEAN CORPUSCULAR HEMOGLOBIN 29.8 pg (27.0-33.0); MEAN CORPUSCULAR HGB CONC 32.5 g/dl (32.0-36.5); MEAN CORPUSCULAR VOLUME 91.7 fl (80.0-96.0); PLATELET COUNT, AUTOMATED 253 10^3/uL (150-450); RED BLOOD COUNT 4.33 10^6/uL (4.00-5.40); RED CELL DISTRIBUTION WIDTH 13.8 % (11.5-14.5); WHITE BLOOD COUNT 8.5 10^3/uL (4.0-10.0)
[2017-10-21 05:09] LABS: ANION GAP 6 MEQ/L (8-16); BLOOD UREA NITROGEN 37 MG/DL (7-18); CALCIUM LEVEL 8.6 MG/DL (8.8-10.2); CARBON DIOXIDE LEVEL 31 MEQ/L (21-32); CHLORIDE LEVEL 104 MEQ/L (98-107); CREATININE FOR GFR 1.56 MG/DL (0.55-1.30); GLOMERULAR FILTRATION RATE 35.1 (>45); GLUCOSE, FASTING 107 MG/DL (70-100); MAGNESIUM LEVEL 1.9 MG/DL (1.8-2.4); POTASSIUM SERUM 3.6 MEQ/L (3.5-5.1); SODIUM LEVEL 141 MEQ/L (136-145)
[2017-10-21] MEDS: METOPROLOL TART 50 MG TAB PO ×4 (05:31→23:59)
[2017-10-21] MEDS: DIGOXIN 0.25 MG TAB PO (08:54)
[2017-10-21] MEDS: APIXABAN 5 MG TAB (ELIQUIS) PO ×2 (08:54→20:27)
[2017-10-21] MEDS: SENOKOT S TAB PO ×2 (08:55→20:27)
[2017-10-21] MEDS ORDERED: SLF 3 ML SYR IV ×3 (09:00→14:00)
[2017-10-21] MEDS: SLF 3 ML SYR IV ×2 (12:13→20:27)
[2017-10-21] MEDS: ACETAMINOPHEN TAB 650MG DOSE (2X325MG) PO (20:34)
[2017-10-22 05:09] LABS: HEMATOCRIT 38.7 % (36.0-47.0); HEMOGLOBIN 12.3 g/dl (12.0-15.5); MEAN CORPUSCULAR HEMOGLOBIN 29.3 pg (27.0-33.0); MEAN CORPUSCULAR HGB CONC 31.8 g/dl (32.0-36.5); MEAN CORPUSCULAR VOLUME 92.1 fl (80.0-96.0); PLATELET COUNT, AUTOMATED 225 10^3/uL (150-450); RED CELL DISTRIBUTION WIDTH 13.7 % (11.5-14.5); WHITE BLOOD COUNT 7.6 10^3/uL (4.0-10.0)
[2017-10-22] MEDS: SLF 3 ML SYR IV ×3 (05:20→20:47)
[2017-10-22] MEDS: METOPROLOL TART 50 MG TAB PO (05:20)
[2017-10-22 05:21] LABS: ANION GAP 4 MEQ/L (8-16); BLOOD UREA NITROGEN 38 MG/DL (7-18); CALCIUM LEVEL 8.4 MG/DL (8.8-10.2); CARBON DIOXIDE LEVEL 31 MEQ/L (21-32); CHLORIDE LEVEL 106 MEQ/L (98-107); CREATININE FOR GFR 1.24 MG/DL (0.55-1.30); GLOMERULAR FILTRATION RATE 45.8 (>45); GLUCOSE, FASTING 98 MG/DL (70-100); MAGNESIUM LEVEL 2.3 MG/DL (1.8-2.4); POTASSIUM SERUM 3.6 MEQ/L (3.5-5.1); SODIUM LEVEL 141 MEQ/L (136-145)
[2017-10-22] MEDS: TORSEMIDE 20 MG TAB PO (07:56)
[2017-10-22] MEDS: SENOKOT S TAB PO ×2 (07:56→20:47)
[2017-10-22] MEDS: DIGOXIN 0.125 MG TAB PO (07:57)
[2017-10-22] MEDS: APIXABAN 5 MG TAB (ELIQUIS) PO ×2 (07:57→20:47)
[2017-10-22 08:11] LABS: SEX HORMONE BINDING GLOBULIN 84.5 nmol/L (17.3-125.0)
[2017-10-22] MEDS: METOPROLOL SUCC (TopROL XL) 100MG *XL* TAB PO (11:20)
[2017-10-23 04:49] LABS: HEMATOCRIT 39.1 % (36.0-47.0); HEMOGLOBIN 12.7 g/dl (12.0-15.5); MEAN CORPUSCULAR HEMOGLOBIN 29.9 pg (27.0-33.0); MEAN CORPUSCULAR HGB CONC 32.5 g/dl (32.0-36.5); PLATELET COUNT, AUTOMATED 247 10^3/uL (150-450); RED BLOOD COUNT 4.25 10^6/uL (4.00-5.40); RED CELL DISTRIBUTION WIDTH 13.7 % (11.5-14.5); WHITE BLOOD COUNT 8.4 10^3/uL (4.0-10.0)
[2017-10-23 04:57] LABS: ANION GAP 6 MEQ/L (8-16); BLOOD UREA NITROGEN 37 MG/DL (7-18); CALCIUM LEVEL 8.3 MG/DL (8.8-10.2); CARBON DIOXIDE LEVEL 32 MEQ/L (21-32); CHLORIDE LEVEL 105 MEQ/L (98-107); CREATININE FOR GFR 1.22 MG/DL (0.55-1.30); GLOMERULAR FILTRATION RATE 46.7 (>45); GLUCOSE, FASTING 101 MG/DL (70-100); POTASSIUM SERUM 3.4 MEQ/L (3.5-5.1); SODIUM LEVEL 143 MEQ/L (136-145)
[2017-10-23 05:14] LABS: DIGOXIN LEVEL 1.3 NG/ML (0.5-2.0)
[2017-10-23] MEDS: SLF 3 ML SYR IV ×3 (05:20→22:31)
[2017-10-23] MEDS: POTASSIUM CHLORIDE 10 MEQ SR TABLET PO (08:54)
[2017-10-23] MEDS: TORSEMIDE 20 MG TAB PO (08:54)
[2017-10-23] MEDS: METOPROLOL SUCC (TopROL XL) 100MG *XL* TAB PO (08:55)
[2017-10-23] MEDS: APIXABAN 5 MG TAB (ELIQUIS) PO ×2 (08:55→20:44)
[2017-10-23] MEDS: SENOKOT S TAB PO ×2 (08:56→20:44)
[2017-10-23] MEDS: DIGOXIN 0.125 MG TAB PO (08:56)
[2017-10-24 04:43] LABS: HEMATOCRIT 38.4 % (36.0-47.0); HEMOGLOBIN 12.5 g/dl (12.0-15.5); MEAN CORPUSCULAR HEMOGLOBIN 29.8 pg (27.0-33.0); MEAN CORPUSCULAR HGB CONC 32.6 g/dl (32.0-36.5); MEAN CORPUSCULAR VOLUME 91.6 fl (80.0-96.0); PLATELET COUNT, AUTOMATED 229 10^3/uL (150-450); RED BLOOD COUNT 4.19 10^6/uL (4.00-5.40); RED CELL DISTRIBUTION WIDTH 13.7 % (11.5-14.5); WHITE BLOOD COUNT 8.4 10^3/uL (4.0-10.0)
[2017-10-24 05:01] LABS: ANION GAP 5 MEQ/L (8-16); BLOOD UREA NITROGEN 40 MG/DL (7-18); CALCIUM LEVEL 8.6 MG/DL (8.8-10.2); CARBON DIOXIDE LEVEL 31 MEQ/L (21-32); CHLORIDE LEVEL 107 MEQ/L (98-107); CREATININE FOR GFR 1.18 MG/DL (0.55-1.30); GLOMERULAR FILTRATION RATE 48.5 (>45); GLUCOSE, FASTING 108 MG/DL (70-100); MAGNESIUM LEVEL 2.4 MG/DL (1.8-2.4); POTASSIUM SERUM 3.7 MEQ/L (3.5-5.1); SODIUM LEVEL 143 MEQ/L (136-145)
[2017-10-24] MEDS: SLF 3 ML SYR IV (05:52)
[2017-10-24] MEDS: METOPROLOL SUCC (TopROL XL) 100MG *XL* TAB PO ×2 (09:00→12:37)
[2017-10-24] MEDS: APIXABAN 5 MG TAB (ELIQUIS) PO (09:09)
[2017-10-24] MEDS: DIGOXIN 0.125 MG TAB PO (09:09)
[2017-10-24] MEDS: TORSEMIDE 20 MG TAB PO (09:10)
[2017-10-24] MEDS: SENOKOT S TAB PO (09:10)
[2017-10-25 08:06] LABS: ALPHA SUBUNIT 1.7 ng/mL (.)
== END 2017-10-24 13:35 | disposition home or self-care (01) | DRG 292 ==
LOC: M ED 11:56 → M ED INP 15:14 → M PCU 18:33
DX: I11.0 Hypertensive heart disease with heart failure (principal); Z68.43 Body mass index [BMI] 50.0-59.9, adult; I48.91 Unspecified atrial fibrillation; E87.6 Hypokalemia; R94.6 Abnormal results of thyroid function studies; I50.9 Heart failure, unspecified; E66.01 Morbid (severe) obesity due to excess calories; Z88.8 Allergy status to other drugs, medicaments and biological substances; Z90.49 Acquired absence of other specified parts of digestive tract; Z87.442 Personal history of urinary calculi; Z79.899 Other long term (current) drug therapy

== ENCOUNTER → 2017-11-06 | Outpatient (REF) | payer OTHER, MEDICARE ==
[2017-11-06 18:52] LABS: DIGOXIN LEVEL 1.2 NG/ML (0.5-2.0)
== END ==
LOC: M LAB REF 16:44
DX: I50.32 Chronic diastolic (congestive) heart failure (principal)
CPT/HCPCS: 80162

== ENCOUNTER 2017-11-12 16:48 | Inpatient (IN) | payer OTHER, MEDICARE ==
[2017-11-12 18:33] LABS: BASO # 0.1 10^3/uL (0.0-0.2); BASO % 0.7 % (0.0-1.0); EOS # 0.1 10^3/uL (0.0-0.50); EOS % 1.3 % (0.0-3.0); HEMATOCRIT 45.3 % (36.0-47.0); HEMOGLOBIN 14.8 g/dl (12.0-15.5); IMMATURE GRANULOCYTE % 0.3 % (0-3.0); LYMPH # 1.9 10^3/uL (1.5-4.5); LYMPH % 19.1 % (24.0-44.0); MEAN CORPUSCULAR HEMOGLOBIN 30.6 pg (27.0-33.0); MEAN CORPUSCULAR HGB CONC 32.7 g/dl (32.0-36.5); MEAN CORPUSCULAR VOLUME 93.6 fl (80.0-96.0); MONO # 1.1 10^3/uL (0.0-0.8); MONO % 11.1 % (0.0-5.0); NEUTROPHILS # 6.8 10^3/uL (1.8-7.7); NEUTROPHILS % 67.5 % (36.0-66.0); PLATELET COUNT, AUTOMATED 200 10^3/uL (150-450); RED BLOOD COUNT 4.84 10^6/uL (4.00-5.40); RED CELL DISTRIBUTION WIDTH 13.7 % (11.5-14.5); WHITE BLOOD COUNT 10.1 10^3/uL (4.0-10.0)
[2017-11-12 19:08] LABS: ALBUMIN 3.2 GM/DL (3.2-5.2); ALBUMIN/GLOBULIN RATIO 0.78 (1.00-1.93); ALKALINE PHOSPHATASE 88 U/L (45-117); ALT/SGPT 25 U/L (12-78); ANION GAP 6 MEQ/L (8-16); AST/SGOT 20 U/L (7-37); BILIRUBIN,DIRECT 0.3 MG/DL (0.0-0.2); BILIRUBIN,TOTAL 1.4 MG/DL (0.2-1.0); BLOOD UREA NITROGEN 27 MG/DL (7-18); CALCIUM LEVEL 9.3 MG/DL (8.8-10.2); CARBON DIOXIDE LEVEL 36 MEQ/L (21-32); CHLORIDE LEVEL 99 MEQ/L (98-107); CPK CREATINE PHOSPHOKINASE 29 U/L (26-192); CREATININE FOR GFR 1.75 MG/DL (0.55-1.30); FREE T4 1.43 NG/DL (0.76-1.46); GLOMERULAR FILTRATION RATE 30.8 (>45); GLUCOSE, FASTING 100 MG/DL (70-100); POTASSIUM SERUM 3.9 MEQ/L (3.5-5.1); SODIUM LEVEL 141 MEQ/L (136-145); TOTAL PROTEIN 7.3 GM/DL (6.4-8.2); TROPONIN I < 0.02 NG/ML (< 0.10)
[2017-11-12 19:19] LABS: CK-MB VALUE MASS < 1.0 NG/ML (<3.6); DIGOXIN LEVEL 1.4 NG/ML (0.5-2.0); MB/CK RELATIVE INDEX 3.44 (< OR =4)
[2017-11-12 21:07] LABS: KETONE, URINE AUTO RFX NEGATIVE (NEGATIVE); MUCUS, URINE RFX SMALL (NEGATIVE); NITRITE, URINE AUTO RFX NEGATIVE (NEGATIVE); RBC, URINE AUTO RFX 1 /HPF (0-3); SQUAM EPITHELIAL CELL UR AURFX 0 /HPF (0-6); TRANSITIONAL EPITHELIAL AU RFX 1 /HPF; WBC, URINE AUTO RFX 3 /HPF (0-3)
[2017-11-12 21:11] LABS: LEUKOCYTE ESTERASE UR AUTO RFX TRACE (NEGATIVE)
[2017-11-12] MEDS: NS 1,000 ML IV (23:04)
[2017-11-13 00:53] LABS: MAGNESIUM LEVEL 2.2 MG/DL (1.8-2.4)
[2017-11-13] MEDS ORDERED: IPRATROPIUM 0.5MG/ALBUTEROL 2.5MG INH SOL UD 3ML (DUONEB)(J7620) NEB (01:45)
[2017-11-13] MEDS ORDERED: ACETAMINOPHEN TAB 650MG DOSE (2X325MG) PO (01:45)
[2017-11-13] MEDS: APIXABAN 5 MG TAB (ELIQUIS) PO ×3 (03:29→20:14)
[2017-11-13] MEDS: NS 1,000 ML IV (03:31)
[2017-11-13] MEDS: METOPROLOL SUCC (TopROL XL) 100MG *XL* TAB PO ×3 (03:32→20:15)
[2017-11-13] MEDS: FAMOTIDINE 20 MG TAB PO (03:33)
[2017-11-13] MEDS: NS 500 ML IV ×3 (03:34→14:00)
[2017-11-13] MEDS: ONDANSETRON 4MG/2ML VIAL (J2405) IV (03:40)
[2017-11-13 07:28] LABS: BASO # 0.1 10^3/uL (0.0-0.2); EOS # 0.1 10^3/uL (0.0-0.50); EOS % 1.5 % (0.0-3.0); HEMATOCRIT 42.7 % (36.0-47.0); IMMATURE GRANULOCYTE % 0.3 % (0-3.0); LYMPH # 1.7 10^3/uL (1.5-4.5); LYMPH % 19.7 % (24.0-44.0); MEAN CORPUSCULAR HEMOGLOBIN 30.8 pg (27.0-33.0); MEAN CORPUSCULAR HGB CONC 32.8 g/dl (32.0-36.5); MEAN CORPUSCULAR VOLUME 93.8 fl (80.0-96.0); MONO # 0.8 10^3/uL (0.0-0.8); MONO % 9.3 % (0.0-5.0); NEUTROPHILS % 68.2 % (36.0-66.0); PLATELET COUNT, AUTOMATED 176 10^3/uL (150-450); RED BLOOD COUNT 4.55 10^6/uL (4.00-5.40); WHITE BLOOD COUNT 8.8 10^3/uL (4.0-10.0)
[2017-11-13 07:39] LABS: INR 1.39; PROTHROMBIN TIME 17.4 SECONDS (12.4-14.5)
[2017-11-13 07:40] LABS: PARTIAL THROMBOPLASTIN TIME 37.7 SECONDS (26.8-37.9)
[2017-11-13 07:47] LABS: ANION GAP 5 MEQ/L (8-16); BLOOD UREA NITROGEN 24 MG/DL (7-18); C REACTIVE PROTEIN QUANTITATIV 1.01 MG/DL (0.00-0.30); CALCIUM LEVEL 8.5 MG/DL (8.8-10.2); CARBON DIOXIDE LEVEL 35 MEQ/L (21-32); CHLORIDE LEVEL 101 MEQ/L (98-107); CK-MB VALUE MASS 2.9 NG/ML (<3.6); CPK CREATINE PHOSPHOKINASE 213 U/L (26-192); CREATININE FOR GFR 1.53 MG/DL (0.55-1.30); GLOMERULAR FILTRATION RATE 35.9 (>45); GLUCOSE, FASTING 102 MG/DL (70-100); MAGNESIUM LEVEL 2.1 MG/DL (1.8-2.4); MB/CK RELATIVE INDEX 1.36 (< OR =4); NT-PRO BNP 4905 PG/ML (<125); POTASSIUM SERUM 3.3 MEQ/L (3.5-5.1); SODIUM LEVEL 141 MEQ/L (136-145); TROPONIN I 0.02 NG/ML (< 0.10)
[2017-11-13 08:04] LABS: LACTIC ACID SEPSIS PROTOCOL 1.6 MMOL/L (0.4-2.0)
[2017-11-13 08:08] LABS: ERYTHROCYTE SEDIMENTATION RATE 18 mm/hr (0-30)
[2017-11-13 08:19] LABS: OSMOLALITY SERUM 297 MOSM/KG (280-301)
[2017-11-13 08:21] LABS: OSMOLALITY URINE 396 MOSM/KG (500-800)
[2017-11-13 08:26] LABS: SODIUM,RANDOM URINE < 10 MEQ/L
[2017-11-13] MEDS: NYSTATIN 100,000 UNITS/GM TOPICAL PWD 15 GM TOP (09:00)
[2017-11-13] MEDS: POTASSIUM CHLORIDE 10 MEQ SR TABLET PO (09:13)
[2017-11-13] MEDS: AMIODARONE HCL 150 MG in APPROPRIATE DILUENT 1 EA IV (09:25)
[2017-11-13] MEDS: PANTOPRAZOLE 40MG TAB (PROTONIX) PO (20:14)
[2017-11-14 06:04] LABS: BASO # 0.1 10^3/uL (0.0-0.2); BASO % 0.6 % (0.0-1.0); EOS # 0.1 10^3/uL (0.0-0.50); EOS % 1.7 % (0.0-3.0); HEMATOCRIT 40.3 % (36.0-47.0); IMMATURE GRANULOCYTE % 0.2 % (0-3.0); LYMPH # 1.5 10^3/uL (1.5-4.5); LYMPH % 17.9 % (24.0-44.0); MEAN CORPUSCULAR HEMOGLOBIN 30.4 pg (27.0-33.0); MEAN CORPUSCULAR HGB CONC 32.3 g/dl (32.0-36.5); MEAN CORPUSCULAR VOLUME 94.2 fl (80.0-96.0); MONO # 0.8 10^3/uL (0.0-0.8); MONO % 9.2 % (0.0-5.0); NEUTROPHILS # 5.9 10^3/uL (1.8-7.7); NEUTROPHILS % 70.4 % (36.0-66.0); PLATELET COUNT, AUTOMATED 164 10^3/uL (150-450); RED BLOOD COUNT 4.28 10^6/uL (4.00-5.40); RED CELL DISTRIBUTION WIDTH 13.9 % (11.5-14.5); WHITE BLOOD COUNT 8.4 10^3/uL (4.0-10.0)
[2017-11-14 06:18] LABS: ANION GAP 6 MEQ/L (8-16); BLOOD UREA NITROGEN 21 MG/DL (7-18); CARBON DIOXIDE LEVEL 31 MEQ/L (21-32); CHLORIDE LEVEL 106 MEQ/L (98-107); CREATININE FOR GFR 1.29 MG/DL (0.55-1.30); GLOMERULAR FILTRATION RATE 43.8 (>45); GLUCOSE, FASTING 109 MG/DL (70-100); MAGNESIUM LEVEL 2.2 MG/DL (1.8-2.4); POTASSIUM SERUM 3.7 MEQ/L (3.5-5.1); SODIUM LEVEL 143 MEQ/L (136-145)
[2017-11-14] MEDS: APIXABAN 5 MG TAB (ELIQUIS) PO ×2 (08:39→20:32)
[2017-11-14] MEDS: PANTOPRAZOLE 40MG TAB (PROTONIX) PO (08:39)
[2017-11-14] MEDS: AMIODARONE 200 MG TAB (PACERONE) PO ×2 (08:39→20:32)
[2017-11-14] MEDS: METOPROLOL SUCC (TopROL XL) 100MG *XL* TAB PO ×2 (08:39→20:32)
[2017-11-14] MEDS: FAMOTIDINE 20 MG TAB PO (08:40)
[2017-11-14] MEDS: NYSTATIN 100,000 UNITS/GM TOPICAL PWD 15 GM TOP (08:41)
[2017-11-14] MEDS ORDERED: PREVNAR 13 VACCINE SYRINGE (CPT CODE:90670) IM (09:00)
[2017-11-14] MEDS: PREVNAR 13 VACCINE SYRINGE (CPT CODE:90670) IM (17:52)
[2017-11-15 04:50] LABS: BASO # 0.1 10^3/uL (0.0-0.2); BASO % 0.8 % (0.0-1.0); EOS # 0.2 10^3/uL (0.0-0.50); EOS % 2.1 % (0.0-3.0); HEMATOCRIT 37.3 % (36.0-47.0); IMMATURE GRANULOCYTE % 0.2 % (0-3.0); LYMPH # 1.9 10^3/uL (1.5-4.5); LYMPH % 19.4 % (24.0-44.0); MEAN CORPUSCULAR HEMOGLOBIN 30.3 pg (27.0-33.0); MEAN CORPUSCULAR HGB CONC 32.2 g/dl (32.0-36.5); MEAN CORPUSCULAR VOLUME 94.2 fl (80.0-96.0); MONO % 10.1 % (0.0-5.0); NEUTROPHILS # 6.4 10^3/uL (1.8-7.7); NEUTROPHILS % 67.4 % (36.0-66.0); PLATELET COUNT, AUTOMATED 161 10^3/uL (150-450); RED BLOOD COUNT 3.96 10^6/uL (4.00-5.40); RED CELL DISTRIBUTION WIDTH 14.1 % (11.5-14.5); WHITE BLOOD COUNT 9.6 10^3/uL (4.0-10.0)
[2017-11-15 05:03] LABS: ANION GAP 4 MEQ/L (8-16); BLOOD UREA NITROGEN 25 MG/DL (7-18); CALCIUM LEVEL 8.2 MG/DL (8.8-10.2); CARBON DIOXIDE LEVEL 32 MEQ/L (21-32); CHLORIDE LEVEL 105 MEQ/L (98-107); CREATININE FOR GFR 1.34 MG/DL (0.55-1.30); GLOMERULAR FILTRATION RATE 41.9 (>45); GLUCOSE, FASTING 110 MG/DL (70-100); MAGNESIUM LEVEL 2.1 MG/DL (1.8-2.4); POTASSIUM SERUM 3.5 MEQ/L (3.5-5.1); SODIUM LEVEL 141 MEQ/L (136-145)
[2017-11-15] MEDS ORDERED: MIRALAX *UNIT DOSE* 17GM PACKET PO (08:30)
[2017-11-15] MEDS: NYSTATIN 100,000 UNITS/GM TOPICAL PWD 15 GM TOP (09:00)
[2017-11-15] MEDS: PANTOPRAZOLE 40MG TAB (PROTONIX) PO (09:07)
[2017-11-15] MEDS: METOPROLOL SUCC (TopROL XL) 100MG *XL* TAB PO ×2 (09:07→21:24)
[2017-11-15] MEDS: FAMOTIDINE 20 MG TAB PO (09:07)
[2017-11-15] MEDS: APIXABAN 5 MG TAB (ELIQUIS) PO ×2 (09:07→21:23)
[2017-11-15] MEDS: DOCUSATE SODIUM 100 MG CAP PO (09:07)
[2017-11-15] MEDS: TORSEMIDE 20 MG TAB PO (09:08)
[2017-11-15] MEDS: AMIODARONE 200 MG TAB (PACERONE) PO ×2 (09:08→21:23)
[2017-11-16 05:46] LABS: BASO # 0.1 10^3/uL (0.0-0.2); BASO % 0.8 % (0.0-1.0); EOS # 0.2 10^3/uL (0.0-0.50); HEMATOCRIT 36.6 % (36.0-47.0); IMMATURE GRANULOCYTE % 0.2 % (0-3.0); LYMPH # 1.7 10^3/uL (1.5-4.5); LYMPH % 20.1 % (24.0-44.0); MEAN CORPUSCULAR HEMOGLOBIN 30.6 pg (27.0-33.0); MEAN CORPUSCULAR HGB CONC 32.8 g/dl (32.0-36.5); MEAN CORPUSCULAR VOLUME 93.4 fl (80.0-96.0); MONO # 0.8 10^3/uL (0.0-0.8); MONO % 9.3 % (0.0-5.0); NEUTROPHILS # 5.6 10^3/uL (1.8-7.7); NEUTROPHILS % 67.6 % (36.0-66.0); PLATELET COUNT, AUTOMATED 150 10^3/uL (150-450); RED BLOOD COUNT 3.92 10^6/uL (4.00-5.40); RED CELL DISTRIBUTION WIDTH 14.3 % (11.5-14.5); WHITE BLOOD COUNT 8.4 10^3/uL (4.0-10.0)
[2017-11-16 06:06] LABS: ANION GAP 5 MEQ/L (8-16); BLOOD UREA NITROGEN 27 MG/DL (7-18); CALCIUM LEVEL 7.9 MG/DL (8.8-10.2); CARBON DIOXIDE LEVEL 31 MEQ/L (21-32); CHLORIDE LEVEL 107 MEQ/L (98-107); GLOMERULAR FILTRATION RATE 39.8 (>45); GLUCOSE, FASTING 100 MG/DL (70-100); POTASSIUM SERUM 3.3 MEQ/L (3.5-5.1); SODIUM LEVEL 143 MEQ/L (136-145)
[2017-11-16] MEDS: DOCUSATE SODIUM 100 MG CAP PO (08:00)
[2017-11-16] MEDS: TORSEMIDE 20 MG TAB PO (08:01)
[2017-11-16] MEDS: PANTOPRAZOLE 40MG TAB (PROTONIX) PO (08:01)
[2017-11-16] MEDS: POTASSIUM CHLORIDE 10 MEQ SR TABLET PO (08:01)
[2017-11-16] MEDS: FAMOTIDINE 20 MG TAB PO (08:01)
[2017-11-16] MEDS: APIXABAN 5 MG TAB (ELIQUIS) PO ×2 (08:01→20:11)
[2017-11-16] MEDS: AMIODARONE 200 MG TAB (PACERONE) PO ×2 (08:02→20:11)
[2017-11-16] MEDS: METOPROLOL SUCC (TopROL XL) 100MG *XL* TAB PO ×2 (08:06→20:11)
[2017-11-16] MEDS: NYSTATIN 100,000 UNITS/GM TOPICAL PWD 15 GM TOP (08:07)
[2017-11-17 06:23] LABS: BASO # 0.1 10^3/uL (0.0-0.2); BASO % 0.8 % (0.0-1.0); EOS # 0.2 10^3/uL (0.0-0.50); HEMATOCRIT 36.9 % (36.0-47.0); HEMOGLOBIN 11.9 g/dl (12.0-15.5); IMMATURE GRANULOCYTE % 0.4 % (0-3.0); LYMPH # 1.7 10^3/uL (1.5-4.5); LYMPH % 19.8 % (24.0-44.0); MEAN CORPUSCULAR HEMOGLOBIN 30.2 pg (27.0-33.0); MEAN CORPUSCULAR HGB CONC 32.2 g/dl (32.0-36.5); MEAN CORPUSCULAR VOLUME 93.7 fl (80.0-96.0); MONO # 0.8 10^3/uL (0.0-0.8); MONO % 9.9 % (0.0-5.0); NEUTROPHILS # 5.7 10^3/uL (1.8-7.7); NEUTROPHILS % 67.1 % (36.0-66.0); PLATELET COUNT, AUTOMATED 167 10^3/uL (150-450); RED BLOOD COUNT 3.94 10^6/uL (4.00-5.40); RED CELL DISTRIBUTION WIDTH 14.6 % (11.5-14.5); WHITE BLOOD COUNT 8.5 10^3/uL (4.0-10.0)
[2017-11-17 06:43] LABS: ANION GAP 7 MEQ/L (8-16); BLOOD UREA NITROGEN 28 MG/DL (7-18); CALCIUM LEVEL 7.8 MG/DL (8.8-10.2); CARBON DIOXIDE LEVEL 29 MEQ/L (21-32); CHLORIDE LEVEL 108 MEQ/L (98-107); CREATININE FOR GFR 1.28 MG/DL (0.55-1.30); GLOMERULAR FILTRATION RATE 44.1 (>45); GLUCOSE, FASTING 96 MG/DL (70-100); POTASSIUM SERUM 3.7 MEQ/L (3.5-5.1); SODIUM LEVEL 144 MEQ/L (136-145)
[2017-11-17] MEDS: POTASSIUM CHLORIDE 10 MEQ SR TABLET PO (09:15)
[2017-11-17] MEDS: METOPROLOL SUCC (TopROL XL) 100MG *XL* TAB PO (09:16)
[2017-11-17] MEDS: PANTOPRAZOLE 40MG TAB (PROTONIX) PO (09:16)
[2017-11-17] MEDS: FAMOTIDINE 20 MG TAB PO (09:16)
[2017-11-17] MEDS: AMIODARONE 200 MG TAB (PACERONE) PO (09:17)
[2017-11-17] MEDS: TORSEMIDE 20 MG TAB PO (09:17)
[2017-11-17] MEDS: APIXABAN 5 MG TAB (ELIQUIS) PO (09:17)
[2017-11-17] MEDS: DOCUSATE SODIUM 100 MG CAP PO (09:18)
[2017-11-17] MEDS: NYSTATIN 100,000 UNITS/GM TOPICAL PWD 15 GM TOP (09:19)
== END 2017-11-17 14:55 | disposition home or self-care (01) | DRG 308 ==
LOC: M MSPAV 11-15 11:50 → M ED INP 11-13 02:02 → M ED 16:48 → M PCU 11-13 16:03
DX: I48.1 Persistent atrial fibrillation (principal); I50.33 Acute on chronic diastolic (congestive) heart failure; I13.0 Hypertensive heart and chronic kidney disease with heart failure and stage 1 through stage 4 chronic kidney disease, or unspecified chronic kidney disease; I83.019 Varicose veins of right lower extremity with ulcer of unspecified site; E66.01 Morbid (severe) obesity due to excess calories; I83.029 Varicose veins of left lower extremity with ulcer of unspecified site; N18.9 Chronic kidney disease, unspecified; Z88.8 Allergy status to other drugs, medicaments and biological substances; Z79.01 Long term (current) use of anticoagulants; Z90.49 Acquired absence of other specified parts of digestive tract; Z87.442 Personal history of urinary calculi

== ENCOUNTER → 2020-11-06 | Outpatient (REF) | payer OTHER ==
[~2020-11-06] MED LIST changes: +ADVI200C5 PO; +AMIO200T3 PO; +DIGO0.123 PO; +ELIQ5TAB PO; +LASI80TA3 PO; -LISI-542 PO; +LISI-898 PO; +METO200T28 PO; +PANT40TA29 PO; -PEPC1TAB4 PO; +PEPC1TAB5 PO; +POLY17PO18 PO; +TORS20TA2 PO
== END ==
LOC: M LAB REF 16:21
PROVIDERS: ATTEND Internal Medicine
DX: E05.80 Other thyrotoxicosis without thyrotoxic crisis or storm (principal)

== ENCOUNTER → 2021-05-10 | Outpatient (REF) | payer OTHER ==
[~2021-05-10] MED LIST changes: -AMIO200T3 PO; +AMIO200T49 PO; -LISI-898 PO; +LISI5TAB11 PO
[2021-05-10 13:04] LABS: FERRITIN 40 NG/ML (8-252); IRON (FE) 41 UG/DL (50-170); PERCENT SATURATION 11.1 % (13.2-45.0); TOTAL IRON BINDING CAPACITY 371 UG/DL (250-450)
[2021-05-13 11:58] LABS: THYROGLOBULIN ANTIBODY < 15.0 U/ML (<60.0); THYROID PEROXIDASE ANTIBODY < 28.0 U/ML (<60.0)
== END ==
LOC: M LAB REF 12:11
PROVIDERS: ATTEND Internal Medicine
DX: E05.80 Other thyrotoxicosis without thyrotoxic crisis or storm (principal)

== ENCOUNTER → 2021-08-28 | Outpatient (CLI) | payer OTHER | LOC: M WUC 13:23 | PROVIDERS: ATTEND Internal Medicine | DX: M54.50 Low back pain, unspecified (principal); M51.36 Other intervertebral disc degeneration, lumbar region; M43.16 Spondylolisthesis, lumbar region ==

== ENCOUNTER → 2021-11-08 | Outpatient (REF) | payer OTHER ==
[2021-11-08 17:33] LABS: PERCENT SATURATION 25.8 % (13.2-45.0)
== END ==
LOC: M LAB REF 16:33
PROVIDERS: ATTEND Internal Medicine
DX: N18.30 Chronic kidney disease, stage 3 unspecified (principal)

== ENCOUNTER → 2022-01-10 | Outpatient (CLI) | payer OTHER | LOC: M WUC 15:09 | PROVIDERS: ATTEND Nurse Practitioner Family | DX: I48.91 Unspecified atrial fibrillation (principal) ==

== ENCOUNTER → 2022-04-22 | Outpatient (REF) | payer OTHER ==
[2022-04-22 17:58] LABS: DIGOXIN LEVEL 1.3 NG/ML (0.5-2.0); PERCENT SATURATION 12.5 % (13.2-45.0)
== END ==
LOC: M LAB REF 16:02
PROVIDERS: ATTEND Internal Medicine
DX: I48.20 Chronic atrial fibrillation, unspecified (principal); D50.9 Iron deficiency anemia, unspecified

== ENCOUNTER 2022-08-25 23:56 | Emergency (ER) | payer MEDICARE, OTHER ==
[~2022-08-25] VITALS: Ht 154.9 cm; Wt 118.0 kg
[2022-08-26] MEDS ORDERED: diazePAM 10MG/2ML SYRINGE IM ONE (01:40)
[2022-08-26] MEDS ORDERED: MORPHINE 4 MG/ML 1ML VIAL IV ONE (02:35)
[2022-08-26] MEDS ORDERED: ONDANSETRON 4MG 2ML VIAL IV ONE (02:35)
[2022-08-26] MEDS ORDERED: NS 1,000 ML IV ONE (02:35)
[2022-08-26 03:23] LABS: HEMATOCRIT 41.4 % (36.0-47.0); HEMOGLOBIN 12.7 g/dl (12.0-15.5); LYMPH # 2.3 10^3/uL (1.5-5.0); MEAN CORPUSCULAR HGB CONC 30.7 g/dl (32.0-36.5); MEAN CORPUSCULAR VOLUME 94.5 fl (80.0-96.0); MONO # 0.7 10^3/uL (0.0-0.8); NEUTROPHILS # 6.9 10^3/uL (1.5-8.5); NEUTROPHILS % 69.8 % (36.0-66.0); PLATELET COUNT, AUTOMATED 267 10^3/uL (150-450); RED BLOOD COUNT 4.38 10^6/uL (4.00-5.40); WHITE BLOOD COUNT 9.9 10^3/uL (4.0-10.0)
[2022-08-26 03:45] LABS: ALBUMIN 3.4 G/DL (3.2-5.2); BILIRUBIN,TOTAL 1.9 MG/DL (0.3-1.2); CREATININE FOR GFR 1.27 MG/DL (0.55-1.30); GLOMERULAR FILTRATION RATE 43.9 (>39); POTASSIUM SERUM 3.5 MMOL/L (3.5-5.1)
[2022-08-26 03:48] LABS: RSV AMPLIFICATION NEGATIVE (NEGATIVE)
[2022-08-26 05:22] LABS: TOTAL PROTEIN 6.4 G/DL (5.7-8.2)
[2022-08-26] MEDS ORDERED: PERC5TAB12 PO (06:22)
[2022-08-26] MEDS ORDERED: LIDO5DIS41 TD (06:22)
[2022-08-26] MEDS ORDERED: ISOVUE-370 76% 100ML VIAL As Ordered ONE (07:53)
[2022-08-26 09:30] VITALS: BP 118/76
[2022-09-10] MEDS ORDERED: SENN-186 PO (19:34)
== END 2022-08-26 10:05 | disposition home or self-care (01) ==
LOC: M ED 23:56 → EDBD 23:56 → M ED 08-26 10:05
DX: M54.50 Low back pain, unspecified (principal); J98.59 Other diseases of mediastinum, not elsewhere classified; I10 Essential (primary) hypertension; J44.9 Chronic obstructive pulmonary disease, unspecified; K21.9 Gastro-esophageal reflux disease without esophagitis; N18.9 Chronic kidney disease, unspecified; Z87.442 Personal history of urinary calculi; Z79.01 Long term (current) use of anticoagulants; Z79.899 Other long term (current) drug therapy; Z88.8 Allergy status to other drugs, medicaments and biological substances
CPT/HCPCS: 71045; 71275; 72131; 80053; 83735; 85025; 87631; 96361; 96372; 96374; 96375; 99285; J2405; J3360; Q9967

== ENCOUNTER 2022-08-29 12:02 | Inpatient (IN) | payer OTHER, MEDICARE ==
[~2022-08-29] VITALS: Ht 154.9 cm; Wt 111.9 kg
[~2022-08-29 12:02] MED LIST changes: +LIDO5DIS41 TD; +PERC5TAB12 PO
[2022-08-29] MEDS ORDERED: MORPHINE 2 MG/ML 1ML VIAL IV PRN (12:50)
[2022-08-29] MEDS ORDERED: ISOVUE-370 76% 100ML VIAL As Ordered ONE (13:57)
[2022-08-29 14:00] LABS: HEMATOCRIT 42.4 % (36.0-47.0); HEMOGLOBIN 13.5 g/dl (12.0-15.5); LYMPH # 1.9 10^3/uL (1.5-5.0); LYMPH % 17.7 % (24.0-44.0); MEAN CORPUSCULAR HEMOGLOBIN 30.1 pg (27.0-33.0); MEAN CORPUSCULAR HGB CONC 31.8 g/dl (32.0-36.5); MEAN CORPUSCULAR VOLUME 94.4 fl (80.0-96.0); MONO # 0.7 10^3/uL (0.0-0.8); MONO % 6.4 % (2.0-8.0); NEUTROPHILS % 75.5 % (36.0-66.0); PLATELET COUNT, AUTOMATED 270 10^3/uL (150-450); RED BLOOD COUNT 4.49 10^6/uL (4.00-5.40); WHITE BLOOD COUNT 10.6 10^3/uL (4.0-10.0)
[2022-08-29 14:17] LABS: ALBUMIN 3.6 G/DL (3.2-5.2); BILIRUBIN,DIRECT 0.6 MG/DL (<0.4); BILIRUBIN,TOTAL 1.6 MG/DL (0.3-1.2); TOTAL PROTEIN 6.7 G/DL (5.7-8.2)
[2022-08-29 14:19] LABS: INR 1.37; PROTHROMBIN TIME 17.1 SECONDS (12.5-14.5)
[2022-08-29 14:20] LABS: PARTIAL THROMBOPLASTIN TIME 49.9 SECONDS (24.8-34.2)
[2022-08-29 15:13] LABS: RSV AMPLIFICATION NEGATIVE (NEGATIVE)
[2022-08-29] MEDS ORDERED: PERCOCET 5MG/325MG TAB PO PRN (17:40)
[2022-08-29] MEDS ORDERED: DIGO0.123 PO (18:36)
[2022-08-29] MEDS ORDERED: LIDO5DIS41 TOP (18:36)
[2022-08-29] MEDS ORDERED: LEVO75TA4 PO (18:36)
[2022-08-29] MEDS ORDERED: METO25TA PO (18:36)
[2022-08-29] MEDS ORDERED: POTA10PO PO (18:36)
[2022-08-29] MEDS ORDERED: HOME MED LIST COMPLETE! XX SCH (18:50)
[2022-08-29] MEDS ORDERED: POTASSIUM CHLORIDE 10MEQ SR TABLET PO ONE (19:00)
[2022-08-29 20:00] VITALS: BP 128/84
[2022-08-29] MEDS: GABAPENTIN 100 MG CAP PO SCH (20:23)
[2022-08-29] MEDS: APIXABAN 5 MG TAB (ELIQUIS) PO SCH (20:23)
[2022-08-29] MEDS: PERCOCET 5MG/325MG TAB PO PRN (20:24)
[2022-08-30] MEDS: PERCOCET 5MG/325MG TAB PO PRN ×2 (05:34→15:31)
[2022-08-30] MEDS: LEVOTHYROXINE 75MCG TABLET (0.075MG) PO SCH (05:34)
[2022-08-30 05:42] LABS: AMORPHOUS SEDIMENT SMALL (NEGATIVE); APPEARANCE, URINE CLOUDY (CLEAR); BACTERIA, URINE AUTO 2+ (NEGATIVE); BILIRUBIN, URINE AUTO NEGATIVE (NEGATIVE); BLOOD, URINE BLOOD NEGATIVE (NEGATIVE); COLOR, URINE YELLOW (YELLOW); GLUCOSE, URINE (UA) AUTO NEGATIVE (NEGATIVE); KETONE, URINE AUTO NEGATIVE (NEGATIVE); LEUKOCYTE ESTERASE, URINE AUTO 1+ (NEGATIVE); MUCUS, URINE SMALL (NEGATIVE); NITRITE, URINE AUTO NEGATIVE (NEGATIVE); PROTEIN, URINE AUTO NEGATIVE (NEGATIVE); RBC, URINE AUTO 2 /HPF (0-3); SPECIFIC GRAVITY URINE AUTO 1.008 (1.002-1.035); SQUAMOUS EPITHELIAL CELL UR AU 0 /HPF (0-6); UROBILINOGEN, URINE AUTO 0.2 mg/dL (0.0-2.0); WBC, URINE AUTO 14 /HPF (0-3)
[2022-08-30 06:00] VITALS: BP 109/63
[2022-08-30 06:25] LABS: HEMOGLOBIN 12.2 g/dl (12.0-15.5); MEAN CORPUSCULAR HGB CONC 31.3 g/dl (32.0-36.5); MEAN CORPUSCULAR VOLUME 96.1 fl (80.0-96.0); PLATELET COUNT, AUTOMATED 236 10^3/uL (150-450); RED BLOOD COUNT 4.06 10^6/uL (4.00-5.40); WHITE BLOOD COUNT 8.8 10^3/uL (4.0-10.0)
[2022-08-30 06:59] LABS: BILIRUBIN,DIRECT 0.7 MG/DL (<0.4); BILIRUBIN,TOTAL 1.7 MG/DL (0.3-1.2); CALCIUM LEVEL 8.5 MG/DL (8.3-10.6); CREATININE FOR GFR 1.27 MG/DL (0.55-1.30); GLOMERULAR FILTRATION RATE 43.9 (>39); PHOSPHORUS LEVEL 2.9 MG/DL (2.4-5.1); POTASSIUM SERUM 3.8 MMOL/L (3.5-5.1); TOTAL PROTEIN 5.6 G/DL (5.7-8.2)
[2022-08-30] MEDS: CEFDINIR 300 MG CAP (OMNICEF) PO SCH ×2 (08:40→20:19)
[2022-08-30] MEDS: POTASSIUM CHL PWD 20MEQ PACKET PO SCH (08:41)
[2022-08-30] MEDS: APIXABAN 5 MG TAB (ELIQUIS) PO SCH ×2 (08:41→20:19)
[2022-08-30] MEDS: GABAPENTIN 100 MG CAP PO SCH ×2 (08:42→20:19)
[2022-08-30] MEDS: METOPROLOL SUCC (TopROL XL) 100MG *XL* TAB PO SCH (08:43)
[2022-08-30] MEDS: TORSEMIDE 20 MG TAB PO SCH ×2 (08:44→17:31)
[2022-08-30] MEDS: DIGOXIN 0.125 MG TAB PO SCH (08:44)
[2022-08-30 08:45] VITALS: BP 103/63
[2022-08-30 14:00] VITALS: BP 116/51
[2022-08-30] MEDS ORDERED: FLUBLOK(EGG FREE)(QUAD)INFLUENZA VACC 0.5ML SYRINGE 18YRS & OLDER IM.IMMUN ONE (19:00)
[2022-08-30] MEDS ORDERED: PREVNAR-20 VACCINE 0.5ML SYRINGE IM.IMMUN ONE (20:00)
[2022-08-30 22:00] VITALS: BP 110/55
[2022-08-31] MEDS: LEVOTHYROXINE 75MCG TABLET (0.075MG) PO SCH (05:50)
[2022-08-31 06:00] VITALS: BP 105/59
[2022-08-31] MEDS ORDERED: MORPHINE 2 MG/ML 1ML VIAL IV ONE (06:00)
[2022-08-31 06:20] LABS: ALBUMIN 2.8 G/DL (3.2-5.2); ALKALINE PHOSPHATASE 112 U/L (46-116); ALT/SGPT 43 U/L (7.0-40); AST/SGOT 24 U/L (<34); BILIRUBIN,TOTAL 1.1 MG/DL (0.3-1.2); BLOOD UREA NITROGEN 19 MG/DL (9-23); CALCIUM LEVEL 8.3 MG/DL (8.3-10.6); CARBON DIOXIDE LEVEL 28 MMOL/L (20-31); CHLORIDE LEVEL 108 MMOL/L (98-107); CREATININE FOR GFR 1.28 MG/DL (0.55-1.30); GLOMERULAR FILTRATION RATE 43.5 (>39); GLUCOSE, FASTING 110 MG/DL (74-106); POTASSIUM SERUM 3.7 MMOL/L (3.5-5.1); SODIUM LEVEL 142 MMOL/L (136-145); TOTAL PROTEIN 5.5 G/DL (5.7-8.2)
[2022-08-31] MEDS: POTASSIUM CHL PWD 20MEQ PACKET PO SCH (08:46)
[2022-08-31] MEDS: CEFDINIR 300 MG CAP (OMNICEF) PO SCH ×2 (08:48→21:24)
[2022-08-31] MEDS: GABAPENTIN 100 MG CAP PO SCH ×2 (08:48→21:24)
[2022-08-31] MEDS: TORSEMIDE 20 MG TAB PO SCH ×2 (08:48→16:31)
[2022-08-31] MEDS: APIXABAN 5 MG TAB (ELIQUIS) PO SCH ×2 (08:48→21:24)
[2022-08-31] MEDS: PERCOCET 5MG/325MG TAB PO PRN ×2 (08:49→18:35)
[2022-08-31] MEDS: DIGOXIN 0.125 MG TAB PO SCH (08:49)
[2022-08-31] MEDS: METOPROLOL SUCC (TopROL XL) 100MG *XL* TAB PO SCH (08:49)
[2022-08-31] MEDS ORDERED: PREVNAR-20 VACCINE 0.5ML SYRINGE IM.IMMUN ONE (09:00)
[2022-08-31] MEDS: DICLOFENAC EPOLAMINE 1.3% PATCH TOP SCH ×2 (10:22→21:23)
[2022-08-31 10:31] LABS: HEPATITIS B SURFACE ANTIGEN NEGATIVE (NEGATIVE)
[2022-08-31 10:53] LABS: HEPATITIS B CORE ANTIBODY IGM NEGATIVE (NEGATIVE)
[2022-08-31 22:00] VITALS: BP 103/59
[2022-09-01] MEDS: PERCOCET 5MG/325MG TAB PO PRN ×3 (00:33→19:46)
[2022-09-01] MEDS: LEVOTHYROXINE 75MCG TABLET (0.075MG) PO SCH (05:57)
[2022-09-01 06:00] VITALS: BP 115/57
[2022-09-01] MEDS: CEFDINIR 300 MG CAP (OMNICEF) PO SCH ×2 (09:32→19:46)
[2022-09-01] MEDS: GABAPENTIN 100 MG CAP PO SCH ×2 (09:32→19:46)
[2022-09-01] MEDS: DIGOXIN 0.125 MG TAB PO SCH (09:34)
[2022-09-01] MEDS: METOPROLOL SUCC (TopROL XL) 100MG *XL* TAB PO SCH (09:34)
[2022-09-01] MEDS: TORSEMIDE 20 MG TAB PO SCH ×2 (09:34→17:20)
[2022-09-01] MEDS: POTASSIUM CHL PWD 20MEQ PACKET PO SCH (09:35)
[2022-09-01] MEDS: DICLOFENAC EPOLAMINE 1.3% PATCH TOP SCH ×2 (09:35→19:45)
[2022-09-01] MEDS: APIXABAN 5 MG TAB (ELIQUIS) PO SCH ×2 (09:35→19:46)
[2022-09-01] MEDS ORDERED: SENNA 8.6 MG TAB (SENOKOT) PO PRN (23:15)
[2022-09-02] MEDS: PERCOCET 5MG/325MG TAB PO PRN (02:11)
[2022-09-02] MEDS: LEVOTHYROXINE 75MCG TABLET (0.075MG) PO SCH (05:55)
[2022-09-02 06:00] VITALS: BP 112/63
[2022-09-02 06:26] LABS: HEMATOCRIT 39.9 % (36.0-47.0); HEMOGLOBIN 12.3 g/dl (12.0-15.5); MEAN CORPUSCULAR HEMOGLOBIN 29.1 pg (27.0-33.0); MEAN CORPUSCULAR HGB CONC 30.8 g/dl (32.0-36.5); MEAN CORPUSCULAR VOLUME 94.5 fl (80.0-96.0); PLATELET COUNT, AUTOMATED 239 10^3/uL (150-450); RED BLOOD COUNT 4.22 10^6/uL (4.00-5.40); WHITE BLOOD COUNT 9.3 10^3/uL (4.0-10.0)
[2022-09-02 07:00] LABS: CALCIUM LEVEL 8.5 MG/DL (8.3-10.6); CREATININE FOR GFR 1.18 MG/DL (0.55-1.30); GLOMERULAR FILTRATION RATE 47.8 (>39); MAGNESIUM LEVEL 1.9 MG/DL (1.8-2.4); POTASSIUM SERUM 3.8 MMOL/L (3.5-5.1)
[2022-09-02] MEDS: POTASSIUM CHL PWD 20MEQ PACKET PO SCH (10:07)
[2022-09-02] MEDS: DIGOXIN 0.125 MG TAB PO SCH (10:08)
[2022-09-02] MEDS: APIXABAN 5 MG TAB (ELIQUIS) PO SCH ×2 (10:08→22:08)
[2022-09-02] MEDS: DOCUSATE SODIUM 100MG CAPSULE PO SCH ×2 (10:08→22:08)
[2022-09-02] MEDS: DICLOFENAC EPOLAMINE 1.3% PATCH TOP SCH ×2 (10:08→22:09)
[2022-09-02] MEDS: TORSEMIDE 20 MG TAB PO SCH ×2 (10:09→17:24)
[2022-09-02] MEDS: CEFDINIR 300 MG CAP (OMNICEF) PO SCH ×2 (10:09→22:09)
[2022-09-02] MEDS: GABAPENTIN 100 MG CAP PO SCH ×2 (10:09→22:09)
[2022-09-02] MEDS: METOPROLOL SUCC (TopROL XL) 100MG *XL* TAB PO SCH (10:10)
[2022-09-02] MEDS ORDERED: GABAPENTIN 300 MG CAP PO SCH (14:00)
[2022-09-02] MEDS ORDERED: GABAPENTIN 100 MG CAP PO SCH (14:36)
[2022-09-02] MEDS ORDERED: RAMELTEON 8 MG TAB (ROZEREM) PO PRN (21:55)
[2022-09-02] MEDS ORDERED: ACETAMINOPHEN TAB 650MG DOSE (2X325MG) PO PRN (21:55)
[2022-09-03 00:49] VITALS: BP 110/61
[2022-09-03] MEDS: PERCOCET 5MG/325MG TAB PO PRN (03:39)
[2022-09-03] MEDS: GABAPENTIN 100 MG CAP PO SCH ×2 (06:22→14:10)
[2022-09-03] MEDS: LEVOTHYROXINE 75MCG TABLET (0.075MG) PO SCH (06:22)
[2022-09-03] MEDS ORDERED: LACTULOSE 20GM/30ML SYRUP UDC PO ONE (07:20)
[2022-09-03] MEDS ORDERED: SENNA 8.6 MG TAB (SENOKOT) PO PRN (07:20)
[2022-09-03] MEDS: DICLOFENAC EPOLAMINE 1.3% PATCH TOP SCH (08:03)
[2022-09-03] MEDS: POTASSIUM CHL PWD 20MEQ PACKET PO SCH (08:03)
[2022-09-03] MEDS: TORSEMIDE 20 MG TAB PO SCH (08:07)
[2022-09-03] MEDS: CEFDINIR 300 MG CAP (OMNICEF) PO SCH (08:07)
[2022-09-03] MEDS: APIXABAN 5 MG TAB (ELIQUIS) PO SCH (08:07)
[2022-09-03] MEDS: DOCUSATE SODIUM 100MG CAPSULE PO SCH (08:07)
[2022-09-03 08:11] VITALS: BP 141/70
[2022-09-03] MEDS: DIGOXIN 0.125 MG TAB PO SCH (08:11)
[2022-09-03] MEDS: METOPROLOL SUCC (TopROL XL) 100MG *XL* TAB PO SCH (08:11)
[2022-09-03 08:32] VITALS: BP 124/70
[2022-09-03] MEDS ORDERED: MIRALAX *UNIT DOSE* 17GM PACKET PO ONE (10:45)
[2022-09-03] MEDS ORDERED: POLYETHYLENE GLYCOL (MIRALAX) 238GM BOTTLE PO ONE (12:00)
== END 2022-09-03 15:10 | DRG 552 ==
LOC: EDBD 12:02 → M ED 12:02 → M ED INP 17:32 → M MS5PR 20:00
PROVIDERS: ADMIT Internal Medicine; ATTEND Internal Medicine
DX: M48.061 Spinal stenosis, lumbar region without neurogenic claudication (principal); N39.0 Urinary tract infection, site not specified; I89.0 Lymphedema, not elsewhere classified; I48.91 Unspecified atrial fibrillation; E03.9 Hypothyroidism, unspecified; M54.32 Sciatica, left side; B96.20 Unspecified Escherichia coli [E. coli] as the cause of diseases classified elsewhere; R74.01 Elevation of levels of liver transaminase levels; M54.17 Radiculopathy, lumbosacral region; R26.89 Other abnormalities of gait and mobility; M17.0 Bilateral primary osteoarthritis of knee; E87.6 Hypokalemia; Z20.822 Contact with and (suspected) exposure to COVID-19; Z79.01 Long term (current) use of anticoagulants; Z79.890 Hormone replacement therapy; Z79.899 Other long term (current) drug therapy; Z88.8 Allergy status to other drugs, medicaments and biological substances

== ENCOUNTER → 2022-09-09 | Outpatient (REF) ==
[~2022-09-09] MED LIST changes: +ACET325C5 PO; +BENG1CRE TOP; +CEFT1INJ5 IM; +DULC10SU2 PR; +ERYT5OIN25 OP; +FLEEENE12 PR; +LEVO75TA4 PO; +LIDO5DIS41 TOP; +METO1TAB33 PO; +METO25TA PO; +MILKSUS3 PO; +POTA10PO PO; +SENN-80 PO
[2022-09-09 15:46] LABS: BASO % 0.1 % (0.0-1.0); HEMATOCRIT 45.1 % (36.0-47.0); HEMOGLOBIN 14.1 g/dl (12.0-15.5); LYMPH # 2.5 10^3/uL (1.5-5.0); LYMPH % 19.5 % (24.0-44.0); MEAN CORPUSCULAR HEMOGLOBIN 29.7 pg (27.0-33.0); MEAN CORPUSCULAR HGB CONC 31.3 g/dl (32.0-36.5); MEAN CORPUSCULAR VOLUME 95.1 fl (80.0-96.0); MONO % 7.8 % (2.0-8.0); NEUTROPHILS # 9.3 10^3/uL (1.5-8.5); NEUTROPHILS % 72.1 % (36.0-66.0); PLATELET COUNT, AUTOMATED 278 10^3/uL (150-450); RED BLOOD COUNT 4.74 10^6/uL (4.00-5.40); WHITE BLOOD COUNT 12.9 10^3/uL (4.0-10.0)
[2022-09-09 16:15] LABS: CALCIUM LEVEL 8.9 MG/DL (8.3-10.6); CREATININE FOR GFR 2.48 MG/DL (0.55-1.30); DIGOXIN LEVEL 1.8 NG/ML (0.8-2.0); GLOMERULAR FILTRATION RATE 20.3 (>39); POTASSIUM SERUM 4.8 MMOL/L (3.5-5.1)
[2022-09-09 16:18] LABS: THYROID STIMULATING HORMONE 4.626 uIU/ML (0.55-4.78)
== END ==
PROVIDERS: ATTEND Physician Assistant
DX: R53.83 Other fatigue (principal)

== ENCOUNTER 2022-09-10 13:55 | Inpatient (IN) | payer OTHER, MEDICARE ==
[~2022-09-10] VITALS: Ht 154.9 cm; Wt 99.2 kg
[~2022-09-10 13:55] MED LIST changes: -ACET325C5 PO; -BENG1CRE TOP; -CEFT1INJ5 IM; -DULC10SU2 PR; -ERYT5OIN25 OP; -FLEEENE12 PR; -METO1TAB33 PO; -MILKSUS3 PO; -SENN-80 PO
[2022-09-10 15:03] VITALS: BP 127/61
[2022-09-10 15:19] LABS: BASO % 0.1 % (0.0-1.0); HEMATOCRIT 47.5 % (36.0-47.0); HEMOGLOBIN 15.1 g/dl (12.0-15.5); LYMPH # 1.9 10^3/uL (1.5-5.0); MEAN CORPUSCULAR HEMOGLOBIN 30.1 pg (27.0-33.0); MEAN CORPUSCULAR HGB CONC 31.8 g/dl (32.0-36.5); MEAN CORPUSCULAR VOLUME 94.8 fl (80.0-96.0); MONO # 1.1 10^3/uL (0.0-0.8); MONO % 8.7 % (2.0-8.0); NEUTROPHILS # 9.6 10^3/uL (1.5-8.5); NEUTROPHILS % 75.9 % (36.0-66.0); PLATELET COUNT, AUTOMATED 278 10^3/uL (150-450); RED BLOOD COUNT 5.01 10^6/uL (4.00-5.40); WHITE BLOOD COUNT 12.6 10^3/uL (4.0-10.0)
[2022-09-10 15:29] LABS: INR 1.45; PROTHROMBIN TIME 17.9 SECONDS (12.5-14.5)
[2022-09-10 15:30] LABS: PARTIAL THROMBOPLASTIN TIME 41.7 SECONDS (24.8-34.2)
[2022-09-10 15:32] LABS: CK-MB VALUE MASS < 1.0 NG/ML (<3.6)
[2022-09-10 15:33] LABS: BLOOD UREA NITROGEN 64 MG/DL (9-23); CALCIUM LEVEL 9.1 MG/DL (8.3-10.6); CARBON DIOXIDE LEVEL 32 MMOL/L (20-31); CHLORIDE LEVEL 100 MMOL/L (98-107); CPK CREATINE PHOSPHOKINASE 49 U/L (34-145); CREATININE FOR GFR 2.94 MG/DL (0.55-1.30); GLOMERULAR FILTRATION RATE 16.7 (>39); GLUCOSE, FASTING 85 MG/DL (74-106); MB/CK RELATIVE INDEX 2.04 (< OR =4); POTASSIUM SERUM 4.4 MMOL/L (3.5-5.1); SODIUM LEVEL 140 MMOL/L (136-145)
[2022-09-10 15:39] LABS: RSV AMPLIFICATION NEGATIVE (NEGATIVE)
[2022-09-10] MEDS ORDERED: NS 1,000 ML IV ONE (15:40)
[2022-09-10] MEDS ORDERED: DULC10SU2 PR (19:34)
[2022-09-10] MEDS ORDERED: ERYT5OIN25 OP (19:34)
[2022-09-10] MEDS ORDERED: CEFT1INJ5 IM (19:34)
[2022-09-10] MEDS ORDERED: BENG1CRE TOP (19:34)
[2022-09-10] MEDS ORDERED: SENN-80 PO (19:34)
[2022-09-10] MEDS ORDERED: FLEEENE12 PR (19:34)
[2022-09-10] MEDS ORDERED: METO1TAB33 PO (19:34)
[2022-09-10] MEDS ORDERED: METO25TA PO (19:34)
[2022-09-10] MEDS ORDERED: ACET325C5 PO (19:34)
[2022-09-10] MEDS ORDERED: MILKSUS3 PO (19:34)
[2022-09-10] MEDS ORDERED: HOME MED LIST COMPLETE! XX SCH (19:40)
[2022-09-10] MEDS: NS 1,000 ML IV SCH (19:47)
[2022-09-10 19:48] VITALS: BP 116/56
[2022-09-10] MEDS ORDERED: ACETAMINOPHEN TAB 650MG DOSE (2X325MG) PO PRN (20:10)
[2022-09-10] MEDS: APIXABAN 5 MG TAB (ELIQUIS) PO SCH (20:51)
[2022-09-10] MEDS: NYSTATIN 100,000 UNITS/GM TOPICAL PWD 15GM TOP SCH (23:13)
[2022-09-11] VITALS (7 sets, daily range): BP systolic 101–125; BP diastolic 57–65
[2022-09-11] MEDS: NS 1,000 ML IV SCH (00:28)
[2022-09-11] MEDS: oxyCODONE 5MG TAB PO PRN ×2 (01:48→08:20)
[2022-09-11] MEDS: LEVOTHYROXINE 75MCG TABLET (0.075MG) PO SCH (06:21)
[2022-09-11 06:24] LABS: HEMATOCRIT 43.1 % (36.0-47.0); HEMOGLOBIN 13.6 g/dl (12.0-15.5); MEAN CORPUSCULAR HEMOGLOBIN 29.8 pg (27.0-33.0); MEAN CORPUSCULAR HGB CONC 31.6 g/dl (32.0-36.5); MEAN CORPUSCULAR VOLUME 94.5 fl (80.0-96.0); PLATELET COUNT, AUTOMATED 256 10^3/uL (150-450); RED BLOOD COUNT 4.56 10^6/uL (4.00-5.40); WHITE BLOOD COUNT 11.2 10^3/uL (4.0-10.0)
[2022-09-11 06:49] LABS: ALBUMIN 2.9 G/DL (3.2-5.2); BILIRUBIN,TOTAL 1.5 MG/DL (0.3-1.2); CALCIUM LEVEL 8.4 MG/DL (8.3-10.6); CHOLESTEROL RISK RATIO 3.59 (<5); CREATININE FOR GFR 2.81 MG/DL (0.55-1.30); GLOMERULAR FILTRATION RATE 17.6 (>39); POTASSIUM SERUM 4.3 MMOL/L (3.5-5.1); TOTAL PROTEIN 5.6 G/DL (5.7-8.2)
[2022-09-11 07:09] LABS: HEMOGLOBIN A1c 5.4 % (4.0-6.0)
[2022-09-11] MEDS: DIGOXIN 0.125 MG TAB PO SCH (08:18)
[2022-09-11] MEDS: APIXABAN 5 MG TAB (ELIQUIS) PO SCH ×2 (08:18→20:41)
[2022-09-11] MEDS: NYSTATIN 100,000 UNITS/GM TOPICAL PWD 15GM TOP SCH ×2 (08:18→20:42)
[2022-09-11] MEDS: METOPROLOL SUCC (TopROL XL) 100MG *XL* TAB PO SCH (08:19)
[2022-09-12 03:35] VITALS: BP 125/56
[2022-09-12] MEDS: oxyCODONE 5MG TAB PO PRN (04:30)
[2022-09-12] MEDS: LEVOTHYROXINE 75MCG TABLET (0.075MG) PO SCH (05:10)
[2022-09-12 05:50] LABS: HEMOGLOBIN 13.6 g/dl (12.0-15.5); MEAN CORPUSCULAR HEMOGLOBIN 29.9 pg (27.0-33.0); MEAN CORPUSCULAR HGB CONC 31.6 g/dl (32.0-36.5); MEAN CORPUSCULAR VOLUME 94.5 fl (80.0-96.0); PLATELET COUNT, AUTOMATED 254 10^3/uL (150-450); RED BLOOD COUNT 4.55 10^6/uL (4.00-5.40); WHITE BLOOD COUNT 10.1 10^3/uL (4.0-10.0)
[2022-09-12 06:26] LABS: CALCIUM LEVEL 8.8 MG/DL (8.3-10.6); CREATININE FOR GFR 1.96 MG/DL (0.55-1.30); GLOMERULAR FILTRATION RATE 26.6 (>39); POTASSIUM SERUM 3.4 MMOL/L (3.5-5.1)
[2022-09-12 08:10] VITALS: BP 119/56
[2022-09-12 08:43] VITALS: BP 119/56
[2022-09-12] MEDS: NYSTATIN 100,000 UNITS/GM TOPICAL PWD 15GM TOP SCH (08:43)
[2022-09-12] MEDS: METOPROLOL SUCC (TopROL XL) 100MG *XL* TAB PO SCH (08:43)
[2022-09-12] MEDS: APIXABAN 5 MG TAB (ELIQUIS) PO SCH (08:43)
[2022-09-12] MEDS: DIGOXIN 0.125 MG TAB PO SCH (08:43)
== END 2022-09-12 12:07 | DRG 74 ==
LOC: EDBD 13:55 → M ED 13:55 → M ED INP 16:39 → ENRESERV 18:28 → M PCU 19:10
PROVIDERS: ADMIT Internal Medicine; ATTEND Internal Medicine
PROC: B246ZZZ Ultrasonography of Right and Left Heart (ICD-10-PCS; principal; 2022-09-10)
DX: G51.0 Bell's palsy (principal); N17.9 Acute kidney failure, unspecified; I50.30 Unspecified diastolic (congestive) heart failure; N13.30 Unspecified hydronephrosis; N13.9 Obstructive and reflux uropathy, unspecified; I89.0 Lymphedema, not elsewhere classified; M54.30 Sciatica, unspecified side; I48.91 Unspecified atrial fibrillation; E03.9 Hypothyroidism, unspecified; R26.89 Other abnormalities of gait and mobility; Z20.822 Contact with and (suspected) exposure to COVID-19; Z79.890 Hormone replacement therapy; Z79.01 Long term (current) use of anticoagulants; Z79.899 Other long term (current) drug therapy; Z88.8 Allergy status to other drugs, medicaments and biological substances; R33.9 Retention of urine, unspecified; Z66 Do not resuscitate

== ENCOUNTER → 2022-09-15 | Outpatient (REF) ==
[~2022-09-15] MED LIST changes: +ACET325C5 PO; +BENG1CRE TOP; +CEFT1INJ5 IM; +DULC10SU2 PR; +ERYT5OIN25 OP; +FLEEENE12 PR; +METO1TAB33 PO; +MILKSUS3 PO; +SENN-80 PO
[2022-09-15 11:04] LABS: HEMATOCRIT 50.5 % (36.0-47.0); HEMOGLOBIN 15.9 g/dl (12.0-15.5); MEAN CORPUSCULAR HEMOGLOBIN 29.8 pg (27.0-33.0); MEAN CORPUSCULAR HGB CONC 31.5 g/dl (32.0-36.5); MEAN CORPUSCULAR VOLUME 94.6 fl (80.0-96.0); PLATELET COUNT, AUTOMATED 327 10^3/uL (150-450); RED BLOOD COUNT 5.34 10^6/uL (4.00-5.40)
[2022-09-15 11:32] LABS: CALCIUM LEVEL 9.7 MG/DL (8.3-10.6); CREATININE FOR GFR 1.49 MG/DL (0.55-1.30); DIGOXIN LEVEL 1.3 NG/ML (0.8-2.0); GLOMERULAR FILTRATION RATE 36.5 (>39)
[2022-09-15 11:33] LABS: THYROID STIMULATING HORMONE 5.927 uIU/ML (0.55-4.78)
== END ==
PROVIDERS: ATTEND Physician Assistant
DX: N17.9 Acute kidney failure, unspecified (principal)

== ENCOUNTER → 2022-09-17 | Outpatient (REF) ==
[2022-09-17 10:49] LABS: CALCIUM LEVEL 9.8 MG/DL (8.3-10.6); CREATININE FOR GFR 1.76 MG/DL (0.55-1.30); GLOMERULAR FILTRATION RATE 30.1 (>39)
== END ==
PROVIDERS: ATTEND Physician Assistant
DX: E87.5 Hyperkalemia (principal)

== ENCOUNTER → 2022-09-19 | Outpatient (REF) ==
[2022-09-19 09:38] LABS: HEMATOCRIT 50.5 % (36.0-47.0); HEMOGLOBIN 16.3 g/dl (12.0-15.5); MEAN CORPUSCULAR HEMOGLOBIN 30.3 pg (27.0-33.0); MEAN CORPUSCULAR HGB CONC 32.3 g/dl (32.0-36.5); MEAN CORPUSCULAR VOLUME 93.9 fl (80.0-96.0); PLATELET COUNT, AUTOMATED 344 10^3/uL (150-450); RED BLOOD COUNT 5.38 10^6/uL (4.00-5.40); WHITE BLOOD COUNT 14.4 10^3/uL (4.0-10.0)
[2022-09-19 10:13] LABS: CALCIUM LEVEL 9.4 MG/DL (8.3-10.6); CREATININE FOR GFR 2.23 MG/DL (0.55-1.30); GLOMERULAR FILTRATION RATE 22.9 (>39); POTASSIUM SERUM 3.6 MMOL/L (3.5-5.1)
[2022-09-19 19:13] LABS: APPEARANCE, URINE CLEAR (CLEAR); BACTERIA, URINE AUTO 1+ (NEGATIVE); BILIRUBIN, URINE AUTO NEGATIVE (NEGATIVE); BLOOD, URINE BLOOD NEGATIVE (NEGATIVE); COLOR, URINE YELLOW (YELLOW); GLUCOSE, URINE (UA) AUTO NEGATIVE (NEGATIVE); KETONE, URINE AUTO NEGATIVE (NEGATIVE); LEUKOCYTE ESTERASE, URINE AUTO TRACE (NEGATIVE); NITRITE, URINE AUTO NEGATIVE (NEGATIVE); PROTEIN, URINE AUTO NEGATIVE (NEGATIVE); RBC, URINE AUTO 1 /HPF (0-3); SQUAMOUS EPITHELIAL CELL UR AU 0 /HPF (0-6); UROBILINOGEN, URINE AUTO 0.2 mg/dL (0.0-2.0); WBC, URINE AUTO 10 /HPF (0-3)
== END ==
PROVIDERS: ATTEND Physician Assistant
DX: N18.9 Chronic kidney disease, unspecified (principal); R33.9 Retention of urine, unspecified

== ENCOUNTER → 2022-09-20 | Outpatient (REF) ==
[2022-09-20 08:10] LABS: CALCIUM LEVEL 8.8 MG/DL (8.3-10.6); CREATININE FOR GFR 1.64 MG/DL (0.55-1.30); GLOMERULAR FILTRATION RATE 32.7 (>39); POTASSIUM SERUM 3.2 MMOL/L (3.5-5.1)
== END ==
PROVIDERS: ATTEND Physician Assistant
DX: N17.9 Acute kidney failure, unspecified (principal)

== ENCOUNTER → 2022-09-21 | Outpatient (REF) | PROVIDERS: ATTEND Physician Assistant | DX: N17.9 Acute kidney failure, unspecified (principal); Z53.8 Procedure and treatment not carried out for other reasons ==

== ENCOUNTER → 2022-09-22 | Outpatient (REF) ==
[2022-09-22 10:11] LABS: HEMATOCRIT 46.3 % (36.0-47.0); HEMOGLOBIN 14.5 g/dl (12.0-15.5); MEAN CORPUSCULAR HEMOGLOBIN 30.2 pg (27.0-33.0); MEAN CORPUSCULAR HGB CONC 31.3 g/dl (32.0-36.5); MEAN CORPUSCULAR VOLUME 96.5 fl (80.0-96.0); PLATELET COUNT, AUTOMATED 322 10^3/uL (150-450); WHITE BLOOD COUNT 12.8 10^3/uL (4.0-10.0)
[2022-09-22 11:39] LABS: BLOOD UREA NITROGEN 28 MG/DL (9-23); CALCIUM LEVEL 9.3 MG/DL (8.3-10.6); CARBON DIOXIDE LEVEL 31 MMOL/L (20-31); CHLORIDE LEVEL 108 MMOL/L (98-107); CREATININE FOR GFR 0.86 MG/DL (0.55-1.30); GLOMERULAR FILTRATION RATE > 60.0 (>39); GLUCOSE, FASTING 111 MG/DL (74-106); POTASSIUM SERUM 3.6 MMOL/L (3.5-5.1); SODIUM LEVEL 140 MMOL/L (136-145)
== END ==
PROVIDERS: ATTEND Physician Assistant
DX: N17.9 Acute kidney failure, unspecified (principal)

== ENCOUNTER → 2022-09-25 | Outpatient (REF) ==
[~2022-09-25] MED LIST changes: +SENN-186 PO; -SENN-80 PO
[2022-09-25 12:15] LABS: BLOOD UREA NITROGEN 31 MG/DL (9-23); CALCIUM LEVEL 8.6 MG/DL (8.3-10.6); CARBON DIOXIDE LEVEL 28 MMOL/L (20-31); CHLORIDE LEVEL 103 MMOL/L (98-107); CREATININE FOR GFR 0.93 MG/DL (0.55-1.30); GLOMERULAR FILTRATION RATE > 60.0 (>39); GLUCOSE, FASTING 98 MG/DL (74-106); POTASSIUM SERUM 4.7 MMOL/L (3.5-5.1); SODIUM LEVEL 140 MMOL/L (136-145)
== END ==
PROVIDERS: ATTEND Physician Assistant
DX: N19 Unspecified kidney failure (principal)

== ENCOUNTER → 2022-09-26 | Outpatient (CLI) | payer OTHER, MEDICARE | LOC: M RAD 16:50 | PROVIDERS: ATTEND Internal Medicine | DX: R53.1 Weakness (principal); M51.46 Schmorl's nodes, lumbar region; M47.816 Spondylosis without myelopathy or radiculopathy, lumbar region; M51.26 Other intervertebral disc displacement, lumbar region; N28.1 Cyst of kidney, acquired ==

== ENCOUNTER → 2022-09-26 | Outpatient (REF) ==
[2022-09-26 09:22] LABS: LDH LACTATE DEHYDROGENASE 182 U/L (120-246)
[2022-09-26 09:23] LABS: ALBUMIN 3.1 G/DL (3.2-5.2); ALKALINE PHOSPHATASE 113 U/L (46-116); ALT/SGPT 20 U/L (7.0-40); AST/SGOT 23 U/L (<34); BILIRUBIN,DIRECT 0.4 MG/DL (<0.4); BILIRUBIN,TOTAL 1.1 MG/DL (0.3-1.2); BLOOD UREA NITROGEN 27 MG/DL (9-23); CARBON DIOXIDE LEVEL 30 MMOL/L (20-31); CHLORIDE LEVEL 104 MMOL/L (98-107); CK-MB VALUE MASS < 1.0 NG/ML (<3.6); CREATININE FOR GFR 1.08 MG/DL (0.55-1.30); GLOMERULAR FILTRATION RATE 52.9 (>39); GLUCOSE, FASTING 88 MG/DL (74-106); POTASSIUM SERUM 4.4 MMOL/L (3.5-5.1); SODIUM LEVEL 139 MMOL/L (136-145); TOTAL PROTEIN 6.4 G/DL (5.7-8.2)
== END ==
PROVIDERS: ATTEND Physician Assistant
DX: I50.9 Heart failure, unspecified (principal)

== ENCOUNTER → 2022-09-29 | Outpatient (REF) ==
[2022-09-29 09:42] LABS: CALCIUM LEVEL 9.4 MG/DL (8.3-10.6); CREATININE FOR GFR 1.06 MG/DL (0.55-1.30); GLOMERULAR FILTRATION RATE 54.1 (>39); POTASSIUM SERUM 4.2 MMOL/L (3.5-5.1)
== END ==
PROVIDERS: ATTEND Physician Assistant
DX: I50.9 Heart failure, unspecified (principal)

== ENCOUNTER → 2022-09-30 | Outpatient (REF) | payer OTHER, MEDICARE ==
[2022-09-30 19:40] LABS: CALCIUM LEVEL 8.9 MG/DL (8.3-10.6); CREATININE FOR GFR 1.08 MG/DL (0.55-1.30); GLOMERULAR FILTRATION RATE 52.9 (>39); HEMATOCRIT 48.9 % (36.0-47.0); HEMOGLOBIN 15.7 g/dl (12.0-15.5); MEAN CORPUSCULAR HEMOGLOBIN 30.6 pg (27.0-33.0); MEAN CORPUSCULAR HGB CONC 32.1 g/dl (32.0-36.5); MEAN CORPUSCULAR VOLUME 95.3 fl (80.0-96.0); PLATELET COUNT, AUTOMATED 269 10^3/uL (150-450); POTASSIUM SERUM 4.9 MMOL/L (3.5-5.1); RED BLOOD COUNT 5.13 10^6/uL (4.00-5.40); WHITE BLOOD COUNT 11.6 10^3/uL (4.0-10.0)
== END ==
LOC: SKLAB2 18:57
PROVIDERS: ATTEND Internal Medicine
DX: N17.9 Acute kidney failure, unspecified (principal)

== ENCOUNTER → 2022-10-01 | Outpatient (REF) ==
[2022-10-01 09:22] LABS: BASO % 0.1 % (0.0-1.0); HEMATOCRIT 49.5 % (36.0-47.0); HEMOGLOBIN 15.7 g/dl (12.0-15.5); LYMPH # 1.9 10^3/uL (1.5-5.0); LYMPH % 14.1 % (24.0-44.0); MEAN CORPUSCULAR HEMOGLOBIN 30.4 pg (27.0-33.0); MEAN CORPUSCULAR HGB CONC 31.7 g/dl (32.0-36.5); MEAN CORPUSCULAR VOLUME 95.7 fl (80.0-96.0); MONO # 0.7 10^3/uL (0.0-0.8); MONO % 5.2 % (2.0-8.0); NEUTROPHILS # 10.7 10^3/uL (1.5-8.5); NEUTROPHILS % 80.1 % (36.0-66.0); PLATELET COUNT, AUTOMATED 250 10^3/uL (150-450); RED BLOOD COUNT 5.17 10^6/uL (4.00-5.40); WHITE BLOOD COUNT 13.3 10^3/uL (4.0-10.0)
[2022-10-01 09:41] LABS: ERYTHROCYTE SEDIMENTATION RATE 85 mm/hr (0-30)
[2022-10-01 09:52] LABS: C REACTIVE PROTEIN QUANTITATIV 1.7 MG/DL (<1.0)
[2022-10-01 10:06] LABS: CALCIUM LEVEL 9.1 MG/DL (8.3-10.6); CREATININE FOR GFR 1.1 MG/DL (0.55-1.30); GLOMERULAR FILTRATION RATE 51.8 (>39); POTASSIUM SERUM 3.9 MMOL/L (3.5-5.1)
== END ==
PROVIDERS: ATTEND Physician Assistant
DX: R60.0 Localized edema (principal)

== ENCOUNTER → 2022-10-13 | Outpatient (REF) | PROVIDERS: ATTEND Physician Assistant | DX: I48.91 Unspecified atrial fibrillation (principal) ==

== ENCOUNTER → 2022-10-15 | Outpatient (REF) | PROVIDERS: ATTEND Physician Assistant | DX: I48.91 Unspecified atrial fibrillation (principal) ==

== ENCOUNTER 2022-10-16 16:21 | Emergency (ER) | payer OTHER, MEDICARE ==
[~2022-10-16] VITALS: Ht 154.9 cm; Wt 75.0 kg
[2022-10-16] MEDS ORDERED: traMADol 50 MG TAB PO ONE (18:25)
[2022-10-16 18:45] VITALS: BP 116/62
== END 2022-10-16 20:07 | disposition home or self-care (01) ==
LOC: M ED 16:21 → EDBD 16:21 → M ED 20:07
DX: G89.4 Chronic pain syndrome (principal); I10 Essential (primary) hypertension; J44.9 Chronic obstructive pulmonary disease, unspecified; N18.9 Chronic kidney disease, unspecified; Z86.79 Personal history of other diseases of the circulatory system; Z88.4 Allergy status to anesthetic agent; Z79.1 Long term (current) use of non-steroidal anti-inflammatories (NSAID); Z79.899 Other long term (current) drug therapy

== ENCOUNTER → 2022-10-22 | Outpatient (REF) ==
[2022-10-22 11:27] LABS: BASO % 0.1 % (0.0-1.0); HEMATOCRIT 49.7 % (36.0-47.0); HEMOGLOBIN 15.8 g/dl (12.0-15.5); LYMPH % 19.4 % (24.0-44.0); MEAN CORPUSCULAR HEMOGLOBIN 30.9 pg (27.0-33.0); MEAN CORPUSCULAR HGB CONC 31.8 g/dl (32.0-36.5); MEAN CORPUSCULAR VOLUME 97.1 fl (80.0-96.0); MONO # 0.6 10^3/uL (0.0-0.8); MONO % 6.1 % (2.0-8.0); NEUTROPHILS # 7.7 10^3/uL (1.5-8.5); PLATELET COUNT, AUTOMATED 225 10^3/uL (150-450); RED BLOOD COUNT 5.12 10^6/uL (4.00-5.40); WHITE BLOOD COUNT 10.4 10^3/uL (4.0-10.0)
[2022-10-22 12:04] LABS: BLOOD UREA NITROGEN 29 MG/DL (9-23); CARBON DIOXIDE LEVEL 29 MMOL/L (20-31); CHLORIDE LEVEL 104 MMOL/L (98-107); CREATININE FOR GFR 0.83 MG/DL (0.55-1.30); GLOMERULAR FILTRATION RATE > 60.0 (>39); GLUCOSE, FASTING 104 MG/DL (74-106); POTASSIUM SERUM 3.8 MMOL/L (3.5-5.1); SODIUM LEVEL 139 MMOL/L (136-145)
[2022-10-22 12:06] LABS: THYROID STIMULATING HORMONE 3.428 uIU/ML (0.55-4.78)
== END ==
PROVIDERS: ATTEND Internal Medicine
DX: N17.9 Acute kidney failure, unspecified (principal)

== ENCOUNTER → 2022-10-29 | Outpatient (REF) ==
[2022-10-29 10:33] LABS: BASO % 0.1 % (0.0-1.0); HEMATOCRIT 45.5 % (36.0-47.0); HEMOGLOBIN 14.9 g/dl (12.0-15.5); LYMPH % 23.8 % (24.0-44.0); MEAN CORPUSCULAR HEMOGLOBIN 31.4 pg (27.0-33.0); MEAN CORPUSCULAR HGB CONC 32.7 g/dl (32.0-36.5); MONO # 0.6 10^3/uL (0.0-0.8); MONO % 7.3 % (2.0-8.0); NEUTROPHILS # 5.9 10^3/uL (1.5-8.5); NEUTROPHILS % 68.6 % (36.0-66.0); PLATELET COUNT, AUTOMATED 192 10^3/uL (150-450); RED BLOOD COUNT 4.74 10^6/uL (4.00-5.40); WHITE BLOOD COUNT 8.5 10^3/uL (4.0-10.0)
[2022-10-29 11:01] LABS: BLOOD UREA NITROGEN 20 MG/DL (9-23); CALCIUM LEVEL 8.6 MG/DL (8.3-10.6); CARBON DIOXIDE LEVEL 27 MMOL/L (20-31); CHLORIDE LEVEL 104 MMOL/L (98-107); CREATININE FOR GFR 0.78 MG/DL (0.55-1.30); GLOMERULAR FILTRATION RATE > 60.0 (>39); GLUCOSE, FASTING 124 MG/DL (74-106); POTASSIUM SERUM 3.7 MMOL/L (3.5-5.1); SODIUM LEVEL 140 MMOL/L (136-145)
== END ==
PROVIDERS: ATTEND Internal Medicine
DX: N17.9 Acute kidney failure, unspecified (principal)

== ENCOUNTER → 2022-11-19 | Outpatient (REF) | payer OTHER, MEDICARE ==
[2022-11-19 11:53] LABS: BASO % 0.1 % (0.0-1.0); HEMOGLOBIN 14.6 g/dl (12.0-15.5); LYMPH # 2.6 10^3/uL (1.5-5.0); LYMPH % 24.6 % (24.0-44.0); MEAN CORPUSCULAR HEMOGLOBIN 31.9 pg (27.0-33.0); MEAN CORPUSCULAR HGB CONC 33.2 g/dl (32.0-36.5); MEAN CORPUSCULAR VOLUME 96.3 fl (80.0-96.0); MONO # 0.8 10^3/uL (0.0-0.8); MONO % 7.7 % (2.0-8.0); NEUTROPHILS # 7.1 10^3/uL (1.5-8.5); PLATELET COUNT, AUTOMATED 251 10^3/uL (150-450); RED BLOOD COUNT 4.57 10^6/uL (4.00-5.40); WHITE BLOOD COUNT 10.6 10^3/uL (4.0-10.0)
[2022-11-19 12:15] LABS: ERYTHROCYTE SEDIMENTATION RATE 54 mm/hr (0-30)
[2022-11-19 12:49] LABS: HEMOGLOBIN A1c 5.4 % (4.0-6.0)
[2022-11-19 13:08] LABS: BLOOD UREA NITROGEN 17 MG/DL (9-23); CREATININE FOR GFR 0.76 MG/DL (0.55-1.30); GLOMERULAR FILTRATION RATE > 60.0 (>39); GLUCOSE, FASTING 92 MG/DL (74-106); SODIUM LEVEL 139 MMOL/L (136-145)
[2022-11-19 13:09] LABS: ALBUMIN 2.6 G/DL (3.2-5.2); ALKALINE PHOSPHATASE 90 U/L (46-116); ALT/SGPT 20 U/L (7.0-40); AST/SGOT 18 U/L (<34); BILIRUBIN,TOTAL 1.1 MG/DL (0.3-1.2); CALCIUM LEVEL 9.1 MG/DL (8.3-10.6); CARBON DIOXIDE LEVEL 27.9 MMOL/L (20-31); CHLORIDE LEVEL 102 MMOL/L (98-107); POTASSIUM SERUM 3.8 MMOL/L (3.5-5.1); TOTAL PROTEIN 5.3 G/DL (5.7-8.2)
[2022-11-19 13:10] LABS: FOLATE 6.61 NG/ML (>5.4); THYROID STIMULATING HORMONE 2.191 uIU/ML (0.55-4.78); VITAMIN B12 LEVEL 291 PG/ML (211-911)
[2022-11-19 14:04] LABS: DRVV SCREEN 103.3 SEC
[2022-11-19 14:05] LABS: PTT LUPUS TYPE ANTICOAG SCREEN 2.7 (0-1.2)
[2022-11-19 14:12] LABS: DRVV CONFIRM 60.4 SEC; LUPUS CONFIRM RATIO 1.7
[2022-11-19 15:07] LABS: NORMALIZED RATIO 1.59 (0.00-1.20)
[2022-11-20 13:09] LABS: ANTINUCLEAR ANTIBODIES DIRECT Negative (Negative)
[2022-11-21 12:09] LABS: STRIATIONAL ANTIBODIES Negative (Neg:<1:100)
[2022-11-22 13:08] LABS: HEXAGONAL PHASE PHOSPHOLIPID 18 sec (0-11)
[2022-11-24 04:11] LABS: VITAMIN B1 LEVEL WHOLE BLOOD 120.9 nmol/L (66.5-200.0); VITAMIN B6,PYRIDOXAL PHOSPHATE 2.1 ug/L (3.4-65.2)
[2022-11-25 13:08] LABS: ACETYLCHOLINE RCPTOR BLOCK AB 17 % (0-25); VITAMIN E(GAMMA TOCOPHEROL) 1.1 mg/L (0.5-4.9)
== END ==
PROVIDERS: ATTEND Physician Assistant
DX: G62.9 Polyneuropathy, unspecified (principal)

== ENCOUNTER → 2022-12-10 | Outpatient (REF) | payer OTHER, MEDICARE ==
[2022-12-10 09:29] LABS: HEMATOCRIT 34.4 % (36.0-47.0); HEMOGLOBIN 11.4 g/dl (12.0-15.5); MEAN CORPUSCULAR HEMOGLOBIN 30.8 pg (27.0-33.0); MEAN CORPUSCULAR HGB CONC 33.1 g/dl (32.0-36.5); PLATELET COUNT, AUTOMATED 225 10^3/uL (150-450); WHITE BLOOD COUNT 6.9 10^3/uL (4.0-10.0)
[2022-12-10 09:53] LABS: BLOOD UREA NITROGEN 17 MG/DL (9-23); CALCIUM LEVEL 8.2 MG/DL (8.3-10.6); CARBON DIOXIDE LEVEL 27 MMOL/L (20-31); CHLORIDE LEVEL 110 MMOL/L (98-107); CREATININE FOR GFR 0.69 MG/DL (0.55-1.30); DIGOXIN LEVEL 0.3 NG/ML (0.8-2.0); GLOMERULAR FILTRATION RATE > 60.0 (>39); GLUCOSE, FASTING 94 MG/DL (74-106); POTASSIUM SERUM 3.7 MMOL/L (3.5-5.1); SODIUM LEVEL 143 MMOL/L (136-145)
[2022-12-10 09:56] LABS: THYROID STIMULATING HORMONE 2.152 uIU/ML (0.55-4.78)
== END ==
PROVIDERS: ATTEND Internal Medicine
DX: I48.91 Unspecified atrial fibrillation (principal)

== ENCOUNTER → 2023-01-07 | Outpatient (REF) | payer OTHER, MEDICARE ==
[~2023-01-07] MED LIST changes: +TRAM50TA2
[2023-01-07 10:16] LABS: HEMATOCRIT 41.4 % (36.0-47.0); HEMOGLOBIN 13.3 g/dl (12.0-15.5); MEAN CORPUSCULAR HEMOGLOBIN 32.7 pg (27.0-33.0); MEAN CORPUSCULAR HGB CONC 32.1 g/dl (32.0-36.5); MEAN CORPUSCULAR VOLUME 101.7 fl (80.0-96.0); PLATELET COUNT, AUTOMATED 216 10^3/uL (150-450); RED BLOOD COUNT 4.07 10^6/uL (4.00-5.40); WHITE BLOOD COUNT 9.8 10^3/uL (4.0-10.0)
[2023-01-07 10:43] LABS: BLOOD UREA NITROGEN 14 MG/DL (9-23); CALCIUM LEVEL 8.8 MG/DL (8.3-10.6); CARBON DIOXIDE LEVEL 31 MMOL/L (20-31); CHLORIDE LEVEL 104 MMOL/L (98-107); CREATININE FOR GFR 0.71 MG/DL (0.55-1.30); GLOMERULAR FILTRATION RATE > 60.0 (>39); GLUCOSE, FASTING 93 MG/DL (74-106); POTASSIUM SERUM 3.6 MMOL/L (3.5-5.1); SODIUM LEVEL 142 MMOL/L (136-145)
== END ==
PROVIDERS: ATTEND Internal Medicine
DX: N17.9 Acute kidney failure, unspecified (principal)

== ENCOUNTER → 2023-02-03 | Outpatient (CLI) | payer OTHER, MEDICARE ==
[~2023-02-03] MED LIST changes: +AMIT10TA7 PO; +HYDR-3713 PO; +PYRI25TA3 PO
[2023-02-03 14:38] VITALS: O2SAT 98
== END ==
LOC: M PAL 14:16
PROVIDERS: ATTEND Nurse Practitioner Adult Health
DX: C37 Malignant neoplasm of thymus (principal); G57.93 Unspecified mononeuropathy of bilateral lower limbs; I48.91 Unspecified atrial fibrillation; I89.0 Lymphedema, not elsewhere classified; R29.6 Repeated falls; Z51.5 Encounter for palliative care; Z66 Do not resuscitate; Z79.01 Long term (current) use of anticoagulants; Z79.890 Hormone replacement therapy; Z79.891 Long term (current) use of opiate analgesic; Z79.899 Other long term (current) drug therapy; Z80.49 Family history of malignant neoplasm of other genital organs; Z88.8 Allergy status to other drugs, medicaments and biological substances; Z99.3 Dependence on wheelchair

== ENCOUNTER → 2023-02-11 | Outpatient (REF) | payer OTHER, MEDICARE ==
[2023-02-11 08:24] LABS: HEMATOCRIT 41.2 % (36.0-47.0); HEMOGLOBIN 13.1 g/dl (12.0-15.5); MEAN CORPUSCULAR HEMOGLOBIN 32.8 pg (27.0-33.0); MEAN CORPUSCULAR HGB CONC 31.8 g/dl (32.0-36.5); PLATELET COUNT, AUTOMATED 236 10^3/uL (150-450); WHITE BLOOD COUNT 9.7 10^3/uL (4.0-10.0)
[2023-02-11 08:52] LABS: BLOOD UREA NITROGEN 16 MG/DL (9-23); CALCIUM LEVEL 9.2 MG/DL (8.3-10.6); CARBON DIOXIDE LEVEL 31 MMOL/L (20-31); CHLORIDE LEVEL 104 MMOL/L (98-107); CREATININE FOR GFR 0.78 MG/DL (0.55-1.30); GLOMERULAR FILTRATION RATE > 60.0 (>39); GLUCOSE, FASTING 89 MG/DL (74-106); POTASSIUM SERUM 3.8 MMOL/L (3.5-5.1); SODIUM LEVEL 143 MMOL/L (136-145)
== END ==
PROVIDERS: ATTEND Internal Medicine
DX: N17.9 Acute kidney failure, unspecified (principal)

== ENCOUNTER → 2023-02-18 | Outpatient (CLI) | payer OTHER, MEDICARE ==
[~2023-02-18] MED LIST changes: +AMIT25TA19 PO; +LEVO88TA3 PO
== END ==
LOC: M ONCR 11:16
PROVIDERS: ATTEND General Practice
DX: C37 Malignant neoplasm of thymus (principal); R29.6 Repeated falls; I89.0 Lymphedema, not elsewhere classified; R53.1 Weakness; Z71.2 Person consulting for explanation of examination or test findings; Z79.01 Long term (current) use of anticoagulants; Z79.890 Hormone replacement therapy; Z80.49 Family history of malignant neoplasm of other genital organs; Z88.8 Allergy status to other drugs, medicaments and biological substances

== ENCOUNTER → 2023-02-18 | Outpatient (CLI) | payer OTHER, MEDICARE ==
[2023-02-18 11:22] VITALS: BP 95/61; TEMP 96.7; O2SAT 98
== END ==
LOC: M PAL 11:00
PROVIDERS: ATTEND Nurse Practitioner Adult Health
DX: C37 Malignant neoplasm of thymus (principal); G57.93 Unspecified mononeuropathy of bilateral lower limbs; I48.91 Unspecified atrial fibrillation; I89.0 Lymphedema, not elsewhere classified; R29.6 Repeated falls; Z51.5 Encounter for palliative care; Z66 Do not resuscitate; Z79.01 Long term (current) use of anticoagulants; Z79.890 Hormone replacement therapy; Z79.891 Long term (current) use of opiate analgesic; Z79.899 Other long term (current) drug therapy; Z80.49 Family history of malignant neoplasm of other genital organs; Z88.8 Allergy status to other drugs, medicaments and biological substances; Z99.3 Dependence on wheelchair

== ENCOUNTER → 2023-03-05 | Outpatient (CLI) | payer OTHER, MEDICARE, MEDICAID ==
[~2023-03-05] VITALS: Ht 165.1 cm; Wt 187.0 kg
[2023-03-05 11:33] VITALS: BP 131/82; O2SAT 95
== END ==
LOC: M PAL 11:25
PROVIDERS: ATTEND Nurse Practitioner Adult Health
DX: C37 Malignant neoplasm of thymus (principal); G57.93 Unspecified mononeuropathy of bilateral lower limbs; I48.91 Unspecified atrial fibrillation; I89.0 Lymphedema, not elsewhere classified; R29.6 Repeated falls; Z51.5 Encounter for palliative care; Z66 Do not resuscitate; Z79.01 Long term (current) use of anticoagulants; Z79.890 Hormone replacement therapy; Z79.891 Long term (current) use of opiate analgesic; Z79.899 Other long term (current) drug therapy; Z80.49 Family history of malignant neoplasm of other genital organs; Z88.8 Allergy status to other drugs, medicaments and biological substances; Z99.3 Dependence on wheelchair

== ENCOUNTER → 2023-03-11 | Outpatient (REF) | payer OTHER, MEDICARE ==
[2023-03-11 11:49] LABS: THYROID STIMULATING HORMONE 2.436 uIU/ML (0.55-4.78)
[2023-03-11 11:51] LABS: DIGOXIN LEVEL 0.6 NG/ML (0.8-2.0)
== END ==
PROVIDERS: ATTEND Internal Medicine
DX: I48.91 Unspecified atrial fibrillation (principal)

== ENCOUNTER → 2023-03-30 | Outpatient (REF) | payer OTHER, MEDICARE, MEDICAID ==
[~2023-03-30] MED LIST changes: +PREG25CA PO
== END ==
PROVIDERS: ATTEND Physician Assistant
DX: I48.91 Unspecified atrial fibrillation (principal); Z53.8 Procedure and treatment not carried out for other reasons

== ENCOUNTER → 2023-04-06 | Outpatient (REF) | payer OTHER, MEDICARE, MEDICAID | PROVIDERS: ATTEND Physician Assistant | DX: I48.91 Unspecified atrial fibrillation (principal) ==

== ENCOUNTER → 2023-04-07 | Outpatient (CLI) | payer OTHER, MEDICARE, MEDICAID ==
[2023-04-07 13:59] VITALS: BP 122/66; O2SAT 95
== END ==
LOC: M PAL 13:52
PROVIDERS: ATTEND Nurse Practitioner Adult Health
DX: C37 Malignant neoplasm of thymus (principal); G57.93 Unspecified mononeuropathy of bilateral lower limbs; I48.91 Unspecified atrial fibrillation; I89.0 Lymphedema, not elsewhere classified; R29.6 Repeated falls; Z51.5 Encounter for palliative care; Z66 Do not resuscitate; Z79.01 Long term (current) use of anticoagulants; Z79.890 Hormone replacement therapy; Z79.891 Long term (current) use of opiate analgesic; Z79.899 Other long term (current) drug therapy; Z80.49 Family history of malignant neoplasm of other genital organs; Z88.8 Allergy status to other drugs, medicaments and biological substances; Z99.3 Dependence on wheelchair

== ENCOUNTER → 2023-06-08 | Outpatient (REF) | payer OTHER, MEDICARE, MEDICAID ==
[2023-06-08 11:42] LABS: DIGOXIN LEVEL 1.7 NG/ML (0.8-2.0)
[2023-06-08 11:44] LABS: THYROID STIMULATING HORMONE 1.551 uIU/ML (0.55-4.78)
== END ==
PROVIDERS: ATTEND Internal Medicine
DX: I48.91 Unspecified atrial fibrillation (principal)

== ENCOUNTER → 2023-07-07 | Outpatient (CLI) | payer OTHER, MEDICARE, MEDICAID ==
[~2023-07-07] VITALS: Ht 154.9 cm; Wt 91.0 kg
[~2023-07-07] MED LIST changes: +ARTIDRO OP; +DIGO0.253 PO
[2023-07-07 13:06] VITALS: O2SAT 100
== END ==
LOC: M PAL 12:57
PROVIDERS: ATTEND Nurse Practitioner Adult Health
DX: C37 Malignant neoplasm of thymus (principal); G57.93 Unspecified mononeuropathy of bilateral lower limbs; I89.0 Lymphedema, not elsewhere classified; R29.6 Repeated falls; Z51.5 Encounter for palliative care; Z66 Do not resuscitate; Z79.01 Long term (current) use of anticoagulants; Z79.890 Hormone replacement therapy; Z79.891 Long term (current) use of opiate analgesic; Z79.899 Other long term (current) drug therapy; Z80.49 Family history of malignant neoplasm of other genital organs; Z88.8 Allergy status to other drugs, medicaments and biological substances; Z96.0 Presence of urogenital implants; Z99.3 Dependence on wheelchair

== ENCOUNTER → 2023-07-08 | Outpatient (REF) | payer OTHER, MEDICARE, MEDICAID ==
[2023-07-08 11:39] LABS: CALCIUM LEVEL 9.4 MG/DL (8.3-10.6); CREATININE FOR GFR 1.14 MG/DL (0.55-1.30); GLOMERULAR FILTRATION RATE 49.6 (>39); POTASSIUM SERUM 3.8 MMOL/L (3.5-5.1)
== END ==
PROVIDERS: ATTEND Physician Assistant
DX: I50.9 Heart failure, unspecified (principal)

== ENCOUNTER → 2023-07-30 | Outpatient (REF) | payer MEDICARE, OTHER, MEDICAID | PROVIDERS: ATTEND Internal Medicine | DX: I50.9 Heart failure, unspecified (principal); I27.20 Pulmonary hypertension, unspecified; K44.9 Diaphragmatic hernia without obstruction or gangrene; R91.8 Other nonspecific abnormal finding of lung field ==

== ENCOUNTER → 2023-07-30 | Outpatient (REF) | payer OTHER, MEDICARE, MEDICAID ==
[2023-07-30 16:02] LABS: HEMATOCRIT 41.2 % (36.0-47.0); HEMOGLOBIN 12.9 g/dl (12.0-15.5); MEAN CORPUSCULAR HEMOGLOBIN 31.5 pg (27.0-33.0); MEAN CORPUSCULAR HGB CONC 31.3 g/dl (32.0-36.5); MEAN CORPUSCULAR VOLUME 100.7 fl (80.0-96.0); PLATELET COUNT, AUTOMATED 252 10^3/uL (150-450); RED BLOOD COUNT 4.09 10^6/uL (4.00-5.40); WHITE BLOOD COUNT 9.9 10^3/uL (4.0-10.0)
[2023-07-30 16:36] LABS: CREATININE FOR GFR 1.17 MG/DL (0.55-1.30); GLOMERULAR FILTRATION RATE 48.1 (>39); POTASSIUM SERUM 4.5 MMOL/L (3.5-5.1)
== END ==
PROVIDERS: ATTEND Physician Assistant
DX: I50.9 Heart failure, unspecified (principal); I27.20 Pulmonary hypertension, unspecified; K44.9 Diaphragmatic hernia without obstruction or gangrene; R91.8 Other nonspecific abnormal finding of lung field

== ENCOUNTER → 2023-08-05 | Outpatient (REF) | payer OTHER, MEDICARE, MEDICAID ==
[2023-08-05 10:40] LABS: HEMATOCRIT 38.7 % (36.0-47.0); HEMOGLOBIN 12.1 g/dl (12.0-15.5); MEAN CORPUSCULAR HEMOGLOBIN 31.6 pg (27.0-33.0); MEAN CORPUSCULAR HGB CONC 31.3 g/dl (32.0-36.5); PLATELET COUNT, AUTOMATED 229 10^3/uL (150-450); RED BLOOD COUNT 3.83 10^6/uL (4.00-5.40); WHITE BLOOD COUNT 8.3 10^3/uL (4.0-10.0)
[2023-08-05 11:09] LABS: CREATININE FOR GFR 1.17 MG/DL (0.55-1.30); GLOMERULAR FILTRATION RATE 48.1 (>39); POTASSIUM SERUM 4.4 MMOL/L (3.5-5.1)
== END ==
PROVIDERS: ATTEND Physician Assistant
DX: I50.9 Heart failure, unspecified (principal)

== ENCOUNTER → 2023-08-10 | Outpatient (REF) | payer OTHER, MEDICARE, MEDICAID | PROVIDERS: ATTEND Internal Medicine | DX: N17.9 Acute kidney failure, unspecified (principal) ==

== ENCOUNTER → 2023-08-18 | Outpatient (CLI) | payer OTHER, MEDICARE | LOC: M RAD 13:09 | PROVIDERS: ATTEND General Practice | DX: D15.0 Benign neoplasm of thymus (principal); I70.0 Atherosclerosis of aorta; I25.10 Atherosclerotic heart disease of native coronary artery without angina pectoris; K44.9 Diaphragmatic hernia without obstruction or gangrene; J98.11 Atelectasis; K76.0 Fatty (change of) liver, not elsewhere classified ==

== ENCOUNTER → 2023-08-23 | Outpatient (REF) | PROVIDERS: ATTEND Internal Medicine | DX: M79.10 Myalgia, unspecified site (principal) ==

== ENCOUNTER → 2023-08-24 | Outpatient (REF) | payer OTHER, MEDICARE ==
[2023-08-24 10:45] LABS: HEMOGLOBIN 13.8 g/dl (12.0-15.5); MEAN CORPUSCULAR HEMOGLOBIN 31.4 pg (27.0-33.0); MEAN CORPUSCULAR HGB CONC 32.1 g/dl (32.0-36.5); MEAN CORPUSCULAR VOLUME 97.7 fl (80.0-96.0); PLATELET COUNT, AUTOMATED 239 10^3/uL (150-450); WHITE BLOOD COUNT 9.1 10^3/uL (4.0-10.0)
[2023-08-24 11:17] LABS: CALCIUM LEVEL 8.7 MG/DL (8.3-10.6); CREATININE FOR GFR 1.14 MG/DL (0.55-1.30); GLOMERULAR FILTRATION RATE 49.6 (>39); POTASSIUM SERUM 4.3 MMOL/L (3.5-5.1)
== END ==
PROVIDERS: ATTEND Physician Assistant
DX: M79.10 Myalgia, unspecified site (principal)

== ENCOUNTER → 2023-09-02 | Outpatient (REF) | payer OTHER, MEDICARE ==
[2023-09-02 15:59] LABS: HEMATOCRIT 47.4 % (36.0-47.0); HEMOGLOBIN 15.1 g/dl (12.0-15.5); MEAN CORPUSCULAR HEMOGLOBIN 31.3 pg (27.0-33.0); MEAN CORPUSCULAR HGB CONC 31.9 g/dl (32.0-36.5); MEAN CORPUSCULAR VOLUME 98.1 fl (80.0-96.0); PLATELET COUNT, AUTOMATED 286 10^3/uL (150-450); RED BLOOD COUNT 4.83 10^6/uL (4.00-5.40); WHITE BLOOD COUNT 10.8 10^3/uL (4.0-10.0)
[2023-09-02 16:32] LABS: CALCIUM LEVEL 8.8 MG/DL (8.3-10.6); CREATININE FOR GFR 1.17 MG/DL (0.55-1.30); GLOMERULAR FILTRATION RATE 48.1 (>39); POTASSIUM SERUM 4.6 MMOL/L (3.5-5.1)
== END ==
PROVIDERS: ATTEND Physician Assistant
DX: R53.1 Weakness (principal)

== ENCOUNTER → 2023-09-03 | Outpatient (REF) | payer OTHER, MEDICARE ==
[2023-09-03 16:19] LABS: HEMATOCRIT 42.9 % (36.0-47.0); MEAN CORPUSCULAR HEMOGLOBIN 31.7 pg (27.0-33.0); MEAN CORPUSCULAR HGB CONC 32.6 g/dl (32.0-36.5); MEAN CORPUSCULAR VOLUME 97.3 fl (80.0-96.0); PLATELET COUNT, AUTOMATED 275 10^3/uL (150-450); RED BLOOD COUNT 4.41 10^6/uL (4.00-5.40); WHITE BLOOD COUNT 11.8 10^3/uL (4.0-10.0)
[2023-09-03 16:46] LABS: CALCIUM LEVEL 9.3 MG/DL (8.3-10.6); CREATININE FOR GFR 1.12 MG/DL (0.55-1.30); GLOMERULAR FILTRATION RATE 50.6 (>39); POTASSIUM SERUM 4.4 MMOL/L (3.5-5.1)
== END ==
PROVIDERS: ATTEND Physician Assistant
DX: R53.83 Other fatigue (principal)

== ENCOUNTER → 2023-09-04 | Outpatient (REF) | payer OTHER, MEDICARE ==
[2023-09-04 12:00] LABS: APPEARANCE, URINE CLOUDY (CLEAR); BACTERIA, URINE AUTO 2+ (NEGATIVE); BILIRUBIN, URINE AUTO NEGATIVE (NEGATIVE); BLOOD, URINE BLOOD NEGATIVE (NEGATIVE); COLOR, URINE YELLOW (YELLOW); GLUCOSE, URINE (UA) AUTO NEGATIVE (NEGATIVE); KETONE, URINE AUTO NEGATIVE (NEGATIVE); LEUKOCYTE ESTERASE, URINE AUTO 3+ (NEGATIVE); NITRITE, URINE AUTO NEGATIVE (NEGATIVE); PROTEIN, URINE AUTO 1+ mg/dL (NEGATIVE); RBC, URINE AUTO 3 /HPF (0-3); SPECIFIC GRAVITY URINE AUTO 1.013 (1.002-1.035); SQUAMOUS EPITHELIAL CELL UR AU 23 /HPF (0-6); UROBILINOGEN, URINE AUTO 0.2 mg/dL (0.0-2.0); WBC, URINE AUTO 89 /HPF (0-3)
== END ==
PROVIDERS: ATTEND Internal Medicine
DX: R10.9 Unspecified abdominal pain (principal)

== ENCOUNTER → 2023-09-08 | Outpatient (CLI) | payer MEDICAID, MEDICARE, OTHER ==
[~2023-09-08] VITALS: Ht 154.9 cm; Wt 85.9 kg
[2023-09-08 13:46] VITALS: BP 107/74; O2SAT 95
== END ==
LOC: M PAL 13:39
PROVIDERS: ATTEND Nurse Practitioner Adult Health
DX: G57.93 Unspecified mononeuropathy of bilateral lower limbs (principal); C37 Malignant neoplasm of thymus; I48.91 Unspecified atrial fibrillation; I89.0 Lymphedema, not elsewhere classified; R29.6 Repeated falls; Z51.5 Encounter for palliative care; Z66 Do not resuscitate; Z79.01 Long term (current) use of anticoagulants; Z79.890 Hormone replacement therapy; Z79.891 Long term (current) use of opiate analgesic; Z79.899 Other long term (current) drug therapy; Z80.49 Family history of malignant neoplasm of other genital organs; Z88.8 Allergy status to other drugs, medicaments and biological substances; Z99.3 Dependence on wheelchair; Z87.440 Personal history of urinary (tract) infections; Z97.8 Presence of other specified devices; Z96.0 Presence of urogenital implants

== ENCOUNTER → 2023-09-09 | Outpatient (REF) | payer MEDICAID, MEDICARE, OTHER ==
[2023-09-09 12:37] LABS: DIGOXIN LEVEL 1.6 NG/ML (0.8-2.0); THYROID STIMULATING HORMONE 2.007 uIU/ML (0.55-4.78)
== END ==
PROVIDERS: ATTEND Internal Medicine
DX: I48.91 Unspecified atrial fibrillation (principal)

== ENCOUNTER → 2023-11-10 | Outpatient (CLI) | payer OTHER, MEDICARE, MEDICAID ==
[~2023-11-10] VITALS: Ht 154.9 cm; Wt 89.0 kg
[~2023-11-10] MED LIST changes: +METO200T15 PO; -METO200T28 PO
[2023-11-10 13:11] VITALS: BP 96/63; O2SAT 95
== END ==
LOC: M PAL 12:44
PROVIDERS: ATTEND Nurse Practitioner Adult Health
DX: G57.93 Unspecified mononeuropathy of bilateral lower limbs (principal); C37 Malignant neoplasm of thymus; I48.91 Unspecified atrial fibrillation; I89.0 Lymphedema, not elsewhere classified; R29.6 Repeated falls; Z51.5 Encounter for palliative care; Z66 Do not resuscitate; Z79.01 Long term (current) use of anticoagulants; Z79.890 Hormone replacement therapy; Z79.891 Long term (current) use of opiate analgesic; Z79.899 Other long term (current) drug therapy; Z80.49 Family history of malignant neoplasm of other genital organs; Z88.8 Allergy status to other drugs, medicaments and biological substances; Z99.3 Dependence on wheelchair; Z87.440 Personal history of urinary (tract) infections; Z97.8 Presence of other specified devices; Z96.0 Presence of urogenital implants

== ENCOUNTER → 2023-12-07 | Outpatient (REF) | payer OTHER, MEDICARE, MEDICAID ==
[2023-12-07 12:24] LABS: THYROID STIMULATING HORMONE 1.891 uIU/ML (0.55-4.78)
== END ==
PROVIDERS: ATTEND Internal Medicine
DX: I48.91 Unspecified atrial fibrillation (principal)

== ENCOUNTER → 2023-12-09 | Outpatient (REF) | payer OTHER, MEDICARE, MEDICAID | PROVIDERS: ATTEND Physician Assistant | DX: I48.91 Unspecified atrial fibrillation (principal); Z53.8 Procedure and treatment not carried out for other reasons ==

== ENCOUNTER → 2023-12-11 | Outpatient (REF) | payer OTHER, MEDICARE, MEDICAID ==
[2023-12-11 09:36] LABS: HEMATOCRIT 38.6 % (36.0-47.0); HEMOGLOBIN 12.3 g/dl (12.0-15.5); MEAN CORPUSCULAR HEMOGLOBIN 31.1 pg (27.0-33.0); MEAN CORPUSCULAR HGB CONC 31.9 g/dl (32.0-36.5); MEAN CORPUSCULAR VOLUME 97.7 fl (80.0-96.0); PLATELET COUNT, AUTOMATED 205 10^3/uL (150-450); RED BLOOD COUNT 3.95 10^6/uL (4.00-5.40); WHITE BLOOD COUNT 8.8 10^3/uL (4.0-10.0)
[2023-12-11 10:08] LABS: CALCIUM LEVEL 9.4 MG/DL (8.3-10.6); CREATININE FOR GFR 1.03 MG/DL (0.55-1.30); GLOMERULAR FILTRATION RATE 55.8 (>39); POTASSIUM SERUM 4.6 MMOL/L (3.5-5.1)
== END ==
PROVIDERS: ATTEND Physician Assistant
DX: E03.9 Hypothyroidism, unspecified (principal)

== ENCOUNTER → 2024-01-11 | Outpatient (REF) | payer OTHER, MEDICARE, MEDICAID ==
[2024-01-11 16:19] LABS: COMPLEMENT C3 120.3 MG/DL (90.0-170.0)
[2024-01-11 16:20] LABS: COMPLEMENT C4 24.6 MG/DL (12-36)
[2024-01-12 15:23] LABS: ANA PATTERN Nuclear, Nucleolar (NEGATIVE); ANA PATTERN 2 Nuclear, Homogeneous; ANA SCREEN, IFA POSITIVE (NEGATIVE); ANA TITER 2 1:40 titer (NEGATIVE)
[2024-01-13 01:29] LABS: CARDIOLIPIN IGA ANTIBODY < 2.0 APL-U/mL (<20.0); CARDIOLIPIN IGG ANTIBODY < 2.0 GPL-U/mL (<20.0)
[2024-01-13 17:57] LABS: DRVV SCREEN 69.4 SECONDS
[2024-01-13 18:18] LABS: PTT LUPUS TYPE ANTICOAG SCREEN 1.83 (0-1.20)
[2024-01-13 18:24] LABS: LUPUS CONFIRM RATIO 1.35
[2024-01-13 18:32] LABS: NORMALIZED RATIO 1.35 (0.00-1.20)
[2024-01-14 21:58] LABS: LYME TOTAL ANTIBODY CIA <= 0.90 Index (<=0.90)
== END ==
PROVIDERS: ATTEND Physician Assistant
DX: M25.50 Pain in unspecified joint (principal); R79.9 Abnormal finding of blood chemistry, unspecified

== ENCOUNTER → 2024-01-20 | Outpatient (CLI) | payer OTHER, MEDICARE, MEDICAID ==
[~2024-01-20] VITALS: Ht 154.9 cm; Wt 89.2 kg
[~2024-01-20] MED LIST changes: +CYMB1CAP5 PO; +PRED10TA2 PO; +PREG25CA3 PO
[2024-01-20 09:35] VITALS: BP 103/60; O2SAT 99
== END ==
LOC: M PAL 09:03
PROVIDERS: ATTEND Nurse Practitioner Adult Health
DX: G57.93 Unspecified mononeuropathy of bilateral lower limbs (principal); C37 Malignant neoplasm of thymus; I48.91 Unspecified atrial fibrillation; I89.0 Lymphedema, not elsewhere classified; R29.6 Repeated falls; Z51.5 Encounter for palliative care; Z66 Do not resuscitate; Z79.01 Long term (current) use of anticoagulants; Z79.890 Hormone replacement therapy; Z79.899 Other long term (current) drug therapy; Z80.49 Family history of malignant neoplasm of other genital organs; Z88.8 Allergy status to other drugs, medicaments and biological substances; Z99.3 Dependence on wheelchair; Z87.440 Personal history of urinary (tract) infections; Z97.8 Presence of other specified devices; Z96.0 Presence of urogenital implants

== ENCOUNTER → 2024-02-08 | Outpatient (REF) | payer OTHER, MEDICARE, MEDICAID ==
[~2024-02-08] MED LIST changes: -PRED10TA2 PO; -PREG25CA3 PO
== END ==
PROVIDERS: ATTEND Internal Medicine
DX: I48.91 Unspecified atrial fibrillation (principal)

== ENCOUNTER → 2024-02-15 | Outpatient (REF) | payer OTHER, MEDICARE, MEDICAID ==
[~2024-02-15] MED LIST changes: +PRED10TA2 PO; +PREG25CA3 PO
[2024-02-15 12:54] LABS: CALCIUM LEVEL 8.7 MG/DL (8.3-10.6); CREATININE FOR GFR 1.04 MG/DL (0.55-1.30); POTASSIUM SERUM 3.8 MMOL/L (3.5-5.1)
== END ==
PROVIDERS: ATTEND Physician Assistant
DX: E87.6 Hypokalemia (principal)

== ENCOUNTER → 2024-03-07 | Outpatient (REF) | payer OTHER, MEDICARE, MEDICAID ==
[2024-03-07 09:52] LABS: THYROID STIMULATING HORMONE 2.511 uIU/ML (0.55-4.78)
[2024-03-07 09:53] LABS: DIGOXIN LEVEL 1.1 NG/ML (0.8-2.0)
== END ==
PROVIDERS: ATTEND Internal Medicine
DX: I48.91 Unspecified atrial fibrillation (principal); Z79.899 Other long term (current) drug therapy

== ENCOUNTER → 2024-04-21 | Outpatient (CLI) | payer OTHER, MEDICARE, MEDICAID | LOC: M PAL 09:03 | PROVIDERS: ATTEND Nurse Practitioner Adult Health | DX: G57.93 Unspecified mononeuropathy of bilateral lower limbs (principal); C37 Malignant neoplasm of thymus; I48.91 Unspecified atrial fibrillation; I89.0 Lymphedema, not elsewhere classified; R29.6 Repeated falls; Z51.5 Encounter for palliative care; Z66 Do not resuscitate; Z79.01 Long term (current) use of anticoagulants; Z79.52 Long term (current) use of systemic steroids; Z79.890 Hormone replacement therapy; Z79.891 Long term (current) use of opiate analgesic; Z79.899 Other long term (current) drug therapy; Z80.49 Family history of malignant neoplasm of other genital organs; Z88.8 Allergy status to other drugs, medicaments and biological substances; Z99.3 Dependence on wheelchair; Z87.440 Personal history of urinary (tract) infections ==

== ENCOUNTER → 2024-05-26 | Outpatient (REF) | payer MEDICARE, OTHER | LOC: M SFHCDERM 17:15 | PROVIDERS: ATTEND Nurse Practitioner Family | DX: B07.9 Viral wart, unspecified (principal) ==

== ENCOUNTER → 2024-05-30 | Outpatient (REF) | payer OTHER, MEDICARE, MEDICAID ==
[2024-05-30 10:46] LABS: CALCIUM LEVEL 9.3 MG/DL (8.3-10.6); CREATININE FOR GFR 1.33 MG/DL (0.55-1.30); GLOMERULAR FILTRATION RATE 41.4 (>39); POTASSIUM SERUM 3.3 MMOL/L (3.5-5.1)
== END ==
PROVIDERS: ATTEND Internal Medicine
DX: R60.9 Edema, unspecified (principal)

== ENCOUNTER → 2024-06-06 | Outpatient (REF) | payer OTHER, MEDICARE, MEDICAID ==
[2024-06-06 10:54] LABS: DIGOXIN LEVEL 1.4 NG/ML (0.8-2.0)
== END ==
PROVIDERS: ATTEND Internal Medicine
DX: I48.91 Unspecified atrial fibrillation (principal)

== ENCOUNTER → 2024-06-13 | Outpatient (REF) | payer OTHER, MEDICARE, MEDICAID | PROVIDERS: ATTEND Physician Assistant | DX: I48.91 Unspecified atrial fibrillation (principal) ==

== ENCOUNTER → 2024-07-04 | Outpatient (REF) | payer OTHER, MEDICARE, MEDICAID | PROVIDERS: ATTEND Physician Assistant | DX: I48.91 Unspecified atrial fibrillation (principal); Z79.01 Long term (current) use of anticoagulants ==

== ENCOUNTER → 2024-07-11 | Outpatient (REF) | payer OTHER, MEDICARE, MEDICAID | PROVIDERS: ATTEND Physician Assistant | DX: I48.91 Unspecified atrial fibrillation (principal) ==

== ENCOUNTER → 2024-07-13 | Outpatient (REF) | payer OTHER, MEDICARE, MEDICAID ==
[2024-07-13 15:51] LABS: HEMATOCRIT 42.1 % (36.0-47.0); HEMOGLOBIN 13.6 g/dl (12.0-15.5); MEAN CORPUSCULAR HGB CONC 32.3 g/dl (32.0-36.5); MEAN CORPUSCULAR VOLUME 95.9 fl (80.0-96.0); PLATELET COUNT, AUTOMATED 231 10^3/uL (150-450); RED BLOOD COUNT 4.39 10^6/uL (4.00-5.40); WHITE BLOOD COUNT 14.2 10^3/uL (4.0-10.0)
[2024-07-13 16:08] LABS: CALCIUM LEVEL 8.9 MG/DL (8.3-10.6); CREATININE FOR GFR 1.97 MG/DL (0.55-1.30); GLOMERULAR FILTRATION RATE 26.3 (>39); POTASSIUM SERUM 3.4 MMOL/L (3.5-5.1)
== END ==
PROVIDERS: ATTEND Physician Assistant
DX: I48.91 Unspecified atrial fibrillation (principal)

== ENCOUNTER → 2024-07-14 | Outpatient (REF) | payer OTHER, MEDICARE, MEDICAID ==
[2024-07-14 13:28] LABS: APPEARANCE, URINE HAZY (CLEAR); BACTERIA, URINE AUTO 1+ (NEGATIVE); BILIRUBIN, URINE AUTO NEGATIVE (NEGATIVE); BLOOD, URINE BLOOD 2+ (NEGATIVE); COLOR, URINE YELLOW (YELLOW); GLUCOSE, URINE (UA) AUTO NEGATIVE (NEGATIVE); KETONE, URINE AUTO NEGATIVE (NEGATIVE); LEUKOCYTE ESTERASE, URINE AUTO 3+ (NEGATIVE); MUCUS, URINE SMALL (NEGATIVE); NITRITE, URINE AUTO NEGATIVE (NEGATIVE); PROTEIN, URINE AUTO NEGATIVE (NEGATIVE); RBC, URINE AUTO 1 /HPF (0-3); SPECIFIC GRAVITY URINE AUTO 1.009 (1.002-1.035); SQUAMOUS EPITHELIAL CELL UR AU 0 /HPF (0-6); UROBILINOGEN, URINE AUTO 0.2 mg/dL (0.0-2.0); WBC, URINE AUTO 97 /HPF (0-3)
[2024-07-14 14:55] LABS: HEMATOCRIT 46.2 % (36.0-47.0); HEMOGLOBIN 14.6 g/dl (12.0-15.5); MEAN CORPUSCULAR HEMOGLOBIN 31.5 pg (27.0-33.0); MEAN CORPUSCULAR HGB CONC 31.6 g/dl (32.0-36.5); MEAN CORPUSCULAR VOLUME 99.6 fl (80.0-96.0); PLATELET COUNT, AUTOMATED 263 10^3/uL (150-450); RED BLOOD COUNT 4.64 10^6/uL (4.00-5.40); WHITE BLOOD COUNT 16.4 10^3/uL (4.0-10.0)
[2024-07-14 15:22] LABS: CALCIUM LEVEL 9.1 MG/DL (8.3-10.6); CREATININE FOR GFR 1.91 MG/DL (0.55-1.30); GLOMERULAR FILTRATION RATE 27.3 (>39); POTASSIUM SERUM 3.6 MMOL/L (3.5-5.1)
== END ==
PROVIDERS: ATTEND Physician Assistant
DX: D72.829 Elevated white blood cell count, unspecified (principal)

== ENCOUNTER → 2024-08-10 | Outpatient (REF) | payer OTHER, MEDICARE, MEDICAID | PROVIDERS: ATTEND Internal Medicine | DX: I48.91 Unspecified atrial fibrillation (principal) ==

== ENCOUNTER 2024-08-17 16:14 | Inpatient (IN) | payer MEDICARE, OTHER, MEDICAID ==
[2024-08-17] VITALS (7 sets, daily range): BP systolic 65–97; BP diastolic 37–55; TEMP 97.9–99.2; O2SAT 99–100
[~2024-08-17] VITALS: Ht 154.9 cm; Wt 98.1 kg
[~2024-08-17 16:14] MED LIST changes: -ALDA25TA2 PO; -ARTIDRO4 OU; -DULO1CAP5 PO; -ELIQ2.5T PO; -ONDA-83 PO; -POTA10CA70 PO; -PYRI25TA2 PO; -SENN-23 PO; -TORS40TA PO; -TRIA1CR80 TOP
[2024-08-17 18:14] LABS: BASO # 0.1 10^3/uL (0.0-0.2); BASO % 0.2 % (0.0-1.0); EOS % 0.1 % (0.0-3.0); HEMATOCRIT 39.8 % (36.0-47.0); LYMPH # 1.8 10^3/uL (1.5-5.0); LYMPH % 5.9 % (24.0-44.0); MEAN CORPUSCULAR HGB CONC 32.7 g/dl (32.0-36.5); MONO % 6.4 % (2.0-8.0); NEUTROPHILS # 26.5 10^3/uL (1.5-8.5); NEUTROPHILS % 86.6 % (36.0-66.0); PLATELET COUNT, AUTOMATED 226 10^3/uL (150-450); RED BLOOD COUNT 4.19 10^6/uL (4.00-5.40)
[2024-08-17] MEDS ORDERED: VANCOMYCIN/WATER FOR INJ (PEG) 1,750 MG in IV 1 EA IV ONE (18:15)
[2024-08-17 18:16] LABS: WHITE BLOOD COUNT 30.6 10^3/uL (4.0-10.0)
[2024-08-17] MEDS: CEFEPIME HCL 2 GM in DEXTROSE 5% (D5W) ADV/MINI-BAG 50 ML IV ONE (18:20)
[2024-08-17] MEDS: NS 0.9% IV ONE (18:21)
[2024-08-17] MEDS: [UNRECOGNIZED DRUG - OTHER] IV ONE (18:21)
[2024-08-17 18:25] LABS: INR 1.67; PROTHROMBIN TIME 19.9 SECONDS (12.5-14.5)
[2024-08-17 18:37] LABS: AMORPHOUS SEDIMENT SMALL (NEGATIVE); APPEARANCE, URINE CLOUDY (CLEAR); BACTERIA, URINE AUTO 2+ (NEGATIVE); BILIRUBIN, URINE AUTO NEGATIVE (NEGATIVE); BLOOD, URINE BLOOD 2+ (NEGATIVE); COLOR, URINE AMBER (YELLOW); GLUCOSE, URINE (UA) AUTO NEGATIVE (NEGATIVE); KETONE, URINE AUTO NEGATIVE (NEGATIVE); LEUKOCYTE ESTERASE, URINE AUTO 3+ (NEGATIVE); MUCUS, URINE SMALL (NEGATIVE); NITRITE, URINE AUTO NEGATIVE (NEGATIVE); PROTEIN, URINE AUTO 2+ mg/dL (NEGATIVE); RBC, URINE AUTO 19 /HPF (0-3); SQUAMOUS EPITHELIAL CELL UR AU 6 /HPF (0-6); TRIPLE PHOSPHATE CRYSTALS MODERATE; UROBILINOGEN, URINE AUTO 0.2 mg/dL (0.0-2.0); WBC, URINE AUTO 62 /HPF (0-3)
[2024-08-17] MEDS ORDERED: propofoL 200 MG/20 ML VIAL As Ordered ONE (18:42)
[2024-08-17] MEDS ORDERED: fentaNYL 100 MCG/2 ML INJECTION As Ordered ONE (18:42)
[2024-08-17] MEDS ORDERED: ONDANSETRON 4MG 2ML VIAL As Ordered ONE (18:42)
[2024-08-17] MEDS ORDERED: LIDOCAINE 2% 100MG/5ML SDV (FOR ANES.) As Ordered ONE (18:42)
[2024-08-17] MEDS ORDERED: MIDAZOLAM INJ 2MG/2ML VIAL As Ordered ONE (18:42)
[2024-08-17 18:43] LABS: ALBUMIN 2.5 G/DL (3.2-5.2); BILIRUBIN,DIRECT 0.6 MG/DL (<0.4); BILIRUBIN,TOTAL 1.3 MG/DL (0.3-1.2); CALCIUM LEVEL 7.8 MG/DL (8.3-10.6); CREATININE FOR GFR 3.41 MG/DL (0.55-1.30); POTASSIUM SERUM 4.6 MMOL/L (3.5-5.1)
[2024-08-17] MEDS ORDERED: ACETAMINOPHEN 1000MG/100ML IV BAG As Ordered ONE (18:43)
[2024-08-17 18:54] LABS: PROCALCITONIN 10.53 ng/ml
[2024-08-17 19:01] LABS: C REACTIVE PROTEIN QUANTITATIV 22.87 MG/DL (<1.0)
[2024-08-17] MEDS: LIDOCAINE 2% 5ML JELLY UROJET As Ordered ONE (19:25)
[2024-08-17] MEDS: ISOVUE-300 61% 100ML VIAL As Ordered ONE (19:35)
[2024-08-17] MEDS: ceFAZolin 2 GM/D5W 50 ML IV BAG As Ordered ONE (19:38)
[2024-08-17] MEDS ORDERED: PHENYLephrine 500MCG 5ML (100MCG/ML) SYRINGE As Ordered ONE (19:41)
[2024-08-17] MEDS ORDERED: ONDANSETRON 4MG 2ML VIAL IV PRN (20:10)
[2024-08-17] MEDS ORDERED: oxyCODONE 5MG TAB PO PRN (20:10)
[2024-08-17] MEDS ORDERED: HYDROMORPHONE HCL 0.5 MG/ 0.5 ML SYRINGE IV PRN (20:10)
[2024-08-17] MEDS ORDERED: fentaNYL 100 MCG/2 ML INJECTION IV PRN (20:10)
[2024-08-17] MEDS: DOCUSATE SODIUM 100MG CAPSULE PO SCH (21:00)
[2024-08-17] MEDS: NS (Normal Saline) 0.9% 1,000 ML IV SCH (21:00)
[2024-08-17] MEDS: NS 500 ML IV ONE (22:15)
[2024-08-17] MEDS ORDERED: IPRATROPIUM 0.5MG/ALBUTEROL 2.5MG INH SOL UD 3ML (DUONEB) NEB PRN (22:15)
[2024-08-17] MEDS: NS (Normal Saline) 0.9% 1,000 ML IV ONE (22:41)
[2024-08-17] MEDS: ACETAMINOPHEN 325 MG TAB PO PRN (22:42)
[2024-08-17] MEDS: VANCOMYCIN HCL 1,500 MG, VIAL MATE ADAPTER 1 EACH in NS 500 ML IV ONE (23:00)
[2024-08-17] MEDS ORDERED: ARTIDRO4 OU (23:08)
[2024-08-17] MEDS ORDERED: METO25TA PO (23:08)
[2024-08-17] MEDS ORDERED: AMIT25TA19 PO (23:08)
[2024-08-17] MEDS ORDERED: ONDA-83 PO (23:08)
[2024-08-17] MEDS ORDERED: HYDR-3713 PO (23:08)
[2024-08-17] MEDS ORDERED: DULO1CAP5 PO (23:08)
[2024-08-17] MEDS ORDERED: ALDA25TA2 PO (23:08)
[2024-08-17] MEDS ORDERED: SENN-23 PO (23:08)
[2024-08-17] MEDS ORDERED: PYRI25TA2 PO (23:08)
[2024-08-17] MEDS ORDERED: TORS40TA PO (23:08)
[2024-08-17] MEDS ORDERED: POTA10CA70 PO (23:08)
[2024-08-17] MEDS ORDERED: ELIQ2.5T PO (23:08)
[2024-08-17] MEDS ORDERED: TRIA1CR80 TOP (23:08)
[2024-08-17] MEDS ORDERED: HOME MED LIST COMPLETE! XX SCH (23:10)
[2024-08-17] MEDS: NOREPINEPHRINE 4MG IN D5 250ML 4 MG in IV 1 EA IV SCH (23:58)
[2024-08-18] VITALS (98 sets, daily range): BP systolic 70–126; BP diastolic 35–71; TEMP 97.7–104; O2SAT 92–100
[2024-08-18] MEDS: LR 1,000 ML IV ONE (01:01)
[2024-08-18] MEDS: NS (Normal Saline) 0.9% 1,000 ML IV ONE (03:01)
[2024-08-18] MEDS: VASOPRESSIN IN 0.9 % NACL 20 UNIT in IV 1 EA IV SCH (03:25)
[2024-08-18] MEDS: LR 1,000 ML IV SCH ×2 (04:08→09:22)
[2024-08-18 04:56] LABS: HEMATOCRIT 41.7 % (36.0-47.0); HEMOGLOBIN 13.4 g/dl (12.0-15.5); MEAN CORPUSCULAR HEMOGLOBIN 30.4 pg (27.0-33.0); MEAN CORPUSCULAR HGB CONC 32.1 g/dl (32.0-36.5); MEAN CORPUSCULAR VOLUME 94.6 fl (80.0-96.0); PLATELET COUNT, AUTOMATED 205 10^3/uL (150-450); RED BLOOD COUNT 4.41 10^6/uL (4.00-5.40)
[2024-08-18 05:06] LABS: WHITE BLOOD COUNT 42.1 10^3/uL (4.0-10.0)
[2024-08-18 05:23] LABS: BILIRUBIN,TOTAL 2.2 MG/DL (0.3-1.2); CALCIUM LEVEL 6.9 MG/DL (8.3-10.6); CREATININE FOR GFR 2.87 MG/DL (0.55-1.30); POTASSIUM SERUM 4.1 MMOL/L (3.5-5.1); TOTAL PROTEIN 5.2 G/DL (5.7-8.2)
[2024-08-18] MEDS: CEFEPIME HCL 2 GM in DEXTROSE 5% (D5W) ADV/MINI-BAG 50 ML IV SCH (05:28)
[2024-08-18] MEDS: LEVOTHYROXINE 88MCG TABLET (0.088 MG) PO SCH (05:28)
[2024-08-18] MEDS: APIXABAN 2.5 MG TAB (ELIQUIS) PO SCH (09:00)
[2024-08-18] MEDS: DULoxetine 30MG CAPSULE (CYMBALTA) PO SCH (09:00)
[2024-08-18] MEDS: DIGOXIN 0.125 MG TAB PO SCH (09:00)
[2024-08-18] MEDS: METOPROLOL SUCC (TopROL XL) 100MG *XL* TAB PO SCH (09:00)
[2024-08-18] MEDS: PREGABALIN 25 MG CAP (LYRICA) PO SCH (09:00)
[2024-08-18] MEDS: SPIRONOLACTONE 25 MG TAB PO SCH (09:00)
[2024-08-18] MEDS: LACTATED RINGER'S 1000 ML IV ONE (09:08)
[2024-08-18] MEDS: POLYVINYL ALCOHOL OPHTH SOLN 15ML (LIQUITEARS) OU SCH (09:11)
[2024-08-18] MEDS: HYDROCORTISONE 100MG/2ML VIAL IV STA (09:11)
[2024-08-18] MEDS ORDERED: VANCOMYCIN HCL 1,000 MG, VIAL MATE ADAPTER 1 EACH in NS 250 ML IV SCH (11:00)
[2024-08-18] MEDS: ACETAMINOPHEN *IV* 1,000 MG in IV 1 EA IV ONE (11:39)
[2024-08-18 12:01] LABS: INR 1.58; PARTIAL THROMBOPLASTIN TIME 34.2 SECONDS (24.8-34.2); PROTHROMBIN TIME 19.1 SECONDS (12.5-14.5)
[2024-08-18 12:03] LABS: THYROID STIMULATING HORMONE 0.622 uIU/ML (0.55-4.78)
[2024-08-18 12:04] LABS: FREE T4 1.3 NG/DL (0.89-1.76)
[2024-08-18] MEDS: HYDROCORTISONE 100MG/2ML VIAL IV SCH (16:13)
[2024-08-18] MEDS: LR 500 ML IV ONE (18:32)
[2024-08-18 19:34] LABS: ALBUMIN 1.9 G/DL (3.2-5.2); BILIRUBIN,TOTAL 1.3 MG/DL (0.3-1.2); CALCIUM LEVEL 6.9 MG/DL (8.3-10.6); CREATININE FOR GFR 2.61 MG/DL (0.55-1.30); MAGNESIUM LEVEL 1.6 MG/DL (1.8-2.4); POTASSIUM SERUM 3.9 MMOL/L (3.5-5.1); TOTAL PROTEIN 5.1 G/DL (5.7-8.2)
[2024-08-18] MEDS: ACETAMINOPHEN *IV* 1,000 MG in IV 1 EA IV SCH (20:41)
[2024-08-18] MEDS: AMITRIPTYLINE 25MG TABLET PO SCH (20:41)
[2024-08-18] MEDS: MAG SULF 1GM/100ML (MAG RUN) 1 GM in IV 1 EA IV ONE (21:48)
[2024-08-19] VITALS (106 sets, daily range): BP systolic 76–154; BP diastolic 42–81; TEMP 97–98.4; O2SAT 75–100
[2024-08-19 02:21] LABS: BILIRUBIN,TOTAL 1.1 MG/DL (0.3-1.2); CALCIUM LEVEL 7.2 MG/DL (8.3-10.6); CREATININE FOR GFR 2.42 MG/DL (0.55-1.30); GLOMERULAR FILTRATION RATE 20.8 (>39); MAGNESIUM LEVEL 1.9 MG/DL (1.8-2.4); POTASSIUM SERUM 3.7 MMOL/L (3.5-5.1); TOTAL PROTEIN 5.1 G/DL (5.7-8.2)
[2024-08-19] MEDS: CEFEPIME HCL 1 GM in DEXTROSE 5% (D5W) ADV/MINI-BAG 50 ML IV SCH (06:39)
[2024-08-19 08:15] LABS: MEAN CORPUSCULAR HEMOGLOBIN 30.6 pg (27.0-33.0); MEAN CORPUSCULAR HGB CONC 32.9 g/dl (32.0-36.5); PLATELET COUNT, AUTOMATED 166 10^3/uL (150-450); RED BLOOD COUNT 3.72 10^6/uL (4.00-5.40); WHITE BLOOD COUNT 29.4 10^3/uL (4.0-10.0)
[2024-08-19 08:16] LABS: HEMATOCRIT 34.6 % (36.0-47.0); HEMOGLOBIN 11.4 g/dl (12.0-15.5)
[2024-08-19 08:30] LABS: VANCOMYCIN RANDOM 12.1 UG/ML
[2024-08-19 08:33] LABS: ALBUMIN 2.1 G/DL (3.2-5.2); CALCIUM LEVEL 7.3 MG/DL (8.3-10.6); CREATININE FOR GFR 2.37 MG/DL (0.55-1.30); GLOMERULAR FILTRATION RATE 21.3 (>39); POTASSIUM SERUM 3.7 MMOL/L (3.5-5.1); TOTAL PROTEIN 5.4 G/DL (5.7-8.2)
[2024-08-19] MEDS: VANCOMYCIN HCL 500 MG in DEXTROSE 5% (D5W) MINI-BAG PLU 100 ML IV SCH (09:29)
[2024-08-19] MEDS: POTASSIUM CHLORIDE 10MEQ SR TABLET PO ONE (09:30)
[2024-08-20] VITALS (62 sets, daily range): BP systolic 82–118; BP diastolic 44–66; TEMP 97.1–98.1; O2SAT 92–100
[2024-08-20 05:39] LABS: BASO % 0.2 % (0.0-1.0); EOS % 0.1 % (0.0-3.0); HEMATOCRIT 31.6 % (36.0-47.0); HEMOGLOBIN 10.3 g/dl (12.0-15.5); LYMPH # 1.3 10^3/uL (1.5-5.0); LYMPH % 5.9 % (24.0-44.0); MEAN CORPUSCULAR HEMOGLOBIN 30.5 pg (27.0-33.0); MEAN CORPUSCULAR HGB CONC 32.6 g/dl (32.0-36.5); MEAN CORPUSCULAR VOLUME 93.5 fl (80.0-96.0); MONO # 1.1 10^3/uL (0.0-0.8); MONO % 5.1 % (2.0-8.0); NEUTROPHILS # 19.7 10^3/uL (1.5-8.5); NEUTROPHILS % 87.9 % (36.0-66.0); PLATELET COUNT, AUTOMATED 145 10^3/uL (150-450); RED BLOOD COUNT 3.38 10^6/uL (4.00-5.40); WHITE BLOOD COUNT 22.4 10^3/uL (4.0-10.0)
[2024-08-20 05:46] LABS: BILIRUBIN,TOTAL 0.9 MG/DL (0.3-1.2); CALCIUM LEVEL 7.7 MG/DL (8.3-10.6); CREATININE FOR GFR 1.85 MG/DL (0.55-1.30); GLOMERULAR FILTRATION RATE 28.3 (>39); MAGNESIUM LEVEL 2.1 MG/DL (1.8-2.4); POTASSIUM SERUM 3.3 MMOL/L (3.5-5.1); TOTAL PROTEIN 5.2 G/DL (5.7-8.2)
[2024-08-20] MEDS: LR 1,000 ML IV ONE (10:18)
[2024-08-20] MEDS: LR 1,000 ML IV SCH (11:15)
[2024-08-20] MEDS: cefTRIAXone SOD 1 GM in DEXTROSE 5% (D5W) ADV/MINI-BAG 50 ML IV SCH (17:49)
[2024-08-20] MEDS: POTASSIUM CHLORIDE 10MEQ SR TABLET PO SCH (20:31)
[2024-08-21] VITALS (31 sets, daily range): BP systolic 91–119; BP diastolic 50–68; TEMP 97.8–98.3; O2SAT 93–100
[2024-08-21 05:31] LABS: BASO % 0.1 % (0.0-1.0); HEMATOCRIT 33.6 % (36.0-47.0); HEMOGLOBIN 11.1 g/dl (12.0-15.5); LYMPH # 1.5 10^3/uL (1.5-5.0); LYMPH % 8.9 % (24.0-44.0); MEAN CORPUSCULAR HEMOGLOBIN 30.5 pg (27.0-33.0); MEAN CORPUSCULAR VOLUME 92.3 fl (80.0-96.0); MONO # 0.5 10^3/uL (0.0-0.8); MONO % 3.2 % (2.0-8.0); NEUTROPHILS # 14.1 10^3/uL (1.5-8.5); NEUTROPHILS % 86.8 % (36.0-66.0); PLATELET COUNT, AUTOMATED 149 10^3/uL (150-450); RED BLOOD COUNT 3.64 10^6/uL (4.00-5.40); WHITE BLOOD COUNT 16.3 10^3/uL (4.0-10.0)
[2024-08-21 06:02] LABS: BILIRUBIN,TOTAL 0.8 MG/DL (0.3-1.2); CALCIUM LEVEL 8.1 MG/DL (8.3-10.6); CREATININE FOR GFR 1.5 MG/DL (0.55-1.30); POTASSIUM SERUM 3.6 MMOL/L (3.5-5.1); TOTAL PROTEIN 5.2 G/DL (5.7-8.2)
[2024-08-21] MEDS: HYDROCORTISONE 100MG/2ML VIAL IV SCH (08:38)
[2024-08-22] VITALS (8 sets, daily range): BP systolic 93–113; BP diastolic 51–72; TEMP 96.6–98.2; O2SAT 93–99
[2024-08-22 08:02] LABS: BASO % 0.2 % (0.0-1.0); EOS % 0.2 % (0.0-3.0); HEMATOCRIT 32.2 % (36.0-47.0); HEMOGLOBIN 10.3 g/dl (12.0-15.5); LYMPH # 2.5 10^3/uL (1.5-5.0); MEAN CORPUSCULAR HEMOGLOBIN 29.9 pg (27.0-33.0); MEAN CORPUSCULAR VOLUME 93.6 fl (80.0-96.0); MONO # 0.9 10^3/uL (0.0-0.8); MONO % 4.1 % (2.0-8.0); NEUTROPHILS # 18.7 10^3/uL (1.5-8.5); NEUTROPHILS % 82.2 % (36.0-66.0); PLATELET COUNT, AUTOMATED 182 10^3/uL (150-450); RED BLOOD COUNT 3.44 10^6/uL (4.00-5.40); WHITE BLOOD COUNT 22.7 10^3/uL (4.0-10.0)
[2024-08-22 08:26] LABS: CREATININE FOR GFR 1.65 MG/DL (0.55-1.30); GLOMERULAR FILTRATION RATE 32.3 (>39); POTASSIUM SERUM 4.3 MMOL/L (3.5-5.1)
[2024-08-22] MEDS: METOPROLOL SUCC *XL* 25MG TAB (TopROL *XL*) PO SCH (20:29)
[2024-08-23 03:28] VITALS: BP 97/56; TEMP 98.9; O2SAT 96
[2024-08-23 07:22] VITALS: BP 111/59; TEMP 96.9; O2SAT 98
[2024-08-23] MEDS: CEFDINIR 300 MG CAP (OMNICEF) PO SCH (09:25)
[2024-08-23] MEDS: HYDROCORTISONE 100MG/2ML VIAL IV SCH (09:25)
[2024-08-23 10:39] LABS: HEMOGLOBIN 9.6 g/dl (12.0-15.5); MEAN CORPUSCULAR HEMOGLOBIN 30.7 pg (27.0-33.0); MEAN CORPUSCULAR VOLUME 95.8 fl (80.0-96.0); PLATELET COUNT, AUTOMATED 224 10^3/uL (150-450); RED BLOOD COUNT 3.13 10^6/uL (4.00-5.40)
[2024-08-23 12:00] VITALS: BP 108/55; TEMP 96.6; O2SAT 98
[2024-08-23 15:39] VITALS: BP 104/58; TEMP 97.3; O2SAT 97
[2024-08-23 20:14] VITALS: BP 111/55; TEMP 97.6; O2SAT 95
[2024-08-23 23:29] VITALS: BP 111/55; TEMP 96.9; O2SAT 98
[2024-08-24 04:08] VITALS: BP 119/61; TEMP 98; O2SAT 98
[2024-08-24 06:31] LABS: HEMATOCRIT 27.7 % (36.0-47.0); HEMOGLOBIN 8.8 g/dl (12.0-15.5); MEAN CORPUSCULAR HEMOGLOBIN 30.7 pg (27.0-33.0); MEAN CORPUSCULAR HGB CONC 31.8 g/dl (32.0-36.5); MEAN CORPUSCULAR VOLUME 96.5 fl (80.0-96.0); PLATELET COUNT, AUTOMATED 248 10^3/uL (150-450); RED BLOOD COUNT 2.87 10^6/uL (4.00-5.40); WHITE BLOOD COUNT 21.1 10^3/uL (4.0-10.0)
[2024-08-24 07:08] LABS: BLOOD UREA NITROGEN 32 MG/DL (9-23); CALCIUM LEVEL 8.1 MG/DL (8.3-10.6); CARBON DIOXIDE LEVEL 24 MMOL/L (20-31); CHLORIDE LEVEL 114 MMOL/L (98-107); CREATININE FOR GFR 0.94 MG/DL (0.55-1.30); GLOMERULAR FILTRATION RATE > 60.0 (>39); GLUCOSE, FASTING 93 MG/DL (74-106); POTASSIUM SERUM 6.3 MMOL/L (3.5-5.1); SODIUM LEVEL 145 MMOL/L (136-145)
[2024-08-24 08:08] VITALS: BP 103/58; TEMP 97.3; O2SAT 99
[2024-08-24] MEDS: SOD POLYSTYRENE SULFONATE SUSP 15GM 60ML UD PO ONE ×2 (08:36→15:02)
[2024-08-24 12:25] VITALS: BP 122/58; TEMP 98.3; O2SAT 94
[2024-08-24] MEDS: MOM 30ML SUSPENSION UDC PO PRN (14:48)
[2024-08-24 16:25] VITALS: BP 125/61; TEMP 97.5; O2SAT 98
[2024-08-24 17:52] VITALS: BP 110/68; TEMP 97.4; O2SAT 97
[2024-08-24 19:31] LABS: HEMOGLOBIN 9.3 g/dl (12.0-15.5)
[2024-08-24 19:42] VITALS: BP 117/55; TEMP 97.4; O2SAT 99
[2024-08-24 19:55] LABS: BLOOD UREA NITROGEN 26 MG/DL (9-23); CALCIUM LEVEL 8.2 MG/DL (8.3-10.6); CARBON DIOXIDE LEVEL 26 MMOL/L (20-31); CHLORIDE LEVEL 114 MMOL/L (98-107); CREATININE FOR GFR 0.93 MG/DL (0.55-1.30); GLOMERULAR FILTRATION RATE > 60.0 (>39); GLUCOSE, FASTING 92 MG/DL (74-106); POTASSIUM SERUM 5.3 MMOL/L (3.5-5.1); SODIUM LEVEL 148 MMOL/L (136-145)
[2024-08-25] VITALS (7 sets, daily range): BP systolic 90–114; BP diastolic 51–68; TEMP 96.9–98.5; O2SAT 95–100
[2024-08-25 04:53] LABS: HEMATOCRIT 27.2 % (36.0-47.0); HEMOGLOBIN 8.6 g/dl (12.0-15.5); MEAN CORPUSCULAR HEMOGLOBIN 30.7 pg (27.0-33.0); MEAN CORPUSCULAR HGB CONC 31.6 g/dl (32.0-36.5); MEAN CORPUSCULAR VOLUME 97.1 fl (80.0-96.0); PLATELET COUNT, AUTOMATED 292 10^3/uL (150-450); WHITE BLOOD COUNT 20.5 10^3/uL (4.0-10.0)
[2024-08-25 05:14] LABS: BLOOD UREA NITROGEN 22 MG/DL (9-23); CALCIUM LEVEL 7.9 MG/DL (8.3-10.6); CARBON DIOXIDE LEVEL 25 MMOL/L (20-31); CHLORIDE LEVEL 113 MMOL/L (98-107); CREATININE FOR GFR 0.85 MG/DL (0.55-1.30); GLOMERULAR FILTRATION RATE > 60.0 (>39); GLUCOSE, FASTING 100 MG/DL (74-106); POTASSIUM SERUM 5.4 MMOL/L (3.5-5.1); SODIUM LEVEL 147 MMOL/L (136-145)
[2024-08-25] MEDS: PATIROMER SORBITEX CALCIUM 8.4 GM POWDER PACKET (VELTASSA) PO ONE (08:48)
[2024-08-25] MEDS: D5W 500 ML IV SCH (11:06)
[2024-08-26] VITALS (17 sets, daily range): BP systolic 94–117; BP diastolic 52–76; TEMP 96.9–100.4; O2SAT 96–100
[2024-08-26 07:03] LABS: BASO # 0.1 10^3/uL (0.0-0.2); BASO % 0.3 % (0.0-1.0); EOS # 0.3 10^3/uL (0.0-0.5); EOS % 1.5 % (0.0-3.0); HEMATOCRIT 23.7 % (36.0-47.0); HEMOGLOBIN 7.4 g/dl (12.0-15.5); LYMPH # 4.6 10^3/uL (1.5-5.0); LYMPH % 23.2 % (24.0-44.0); MEAN CORPUSCULAR HEMOGLOBIN 30.6 pg (27.0-33.0); MEAN CORPUSCULAR HGB CONC 31.2 g/dl (32.0-36.5); MEAN CORPUSCULAR VOLUME 97.9 fl (80.0-96.0); MONO # 1.2 10^3/uL (0.0-0.8); MONO % 6.1 % (2.0-8.0); NEUTROPHILS # 13.2 10^3/uL (1.5-8.5); NEUTROPHILS % 66.5 % (36.0-66.0); PLATELET COUNT, AUTOMATED 334 10^3/uL (150-450); RED BLOOD COUNT 2.42 10^6/uL (4.00-5.40); WHITE BLOOD COUNT 19.8 10^3/uL (4.0-10.0)
[2024-08-26 07:30] LABS: BLOOD UREA NITROGEN 41 MG/DL (9-23); CALCIUM LEVEL 7.9 MG/DL (8.3-10.6); CARBON DIOXIDE LEVEL 25 MMOL/L (20-31); CHLORIDE LEVEL 111 MMOL/L (98-107); CREATININE FOR GFR 0.81 MG/DL (0.55-1.30); GLOMERULAR FILTRATION RATE > 60.0 (>39); GLUCOSE, FASTING 90 MG/DL (74-106); POTASSIUM SERUM 5.2 MMOL/L (3.5-5.1); SODIUM LEVEL 142 MMOL/L (136-145)
[2024-08-26] MEDS: HYDROCORTISONE 100MG/2ML VIAL IV SCH (08:28)
[2024-08-26] MEDS: SUCRALFATE 1 GM TAB PO SCH (17:30)
[2024-08-26 17:32] LABS: HEMATOCRIT 30.3 % (36.0-47.0)
[2024-08-26 17:50] LABS: HEMOGLOBIN 10.2 g/dl (12.0-15.5)
[2024-08-26] MEDS: ACETAMINOPHEN *IV* 1,000 MG in IV 1 EA IV ONE (19:08)
[2024-08-26 20:25] LABS: BLOOD UREA NITROGEN 50 MG/DL (9-23); C REACTIVE PROTEIN QUANTITATIV 3.41 MG/DL (<1.0); CALCIUM LEVEL 7.7 MG/DL (8.3-10.6); CARBON DIOXIDE LEVEL 24 MMOL/L (20-31); CHLORIDE LEVEL 113 MMOL/L (98-107); CREATININE FOR GFR 0.82 MG/DL (0.55-1.30); GLOMERULAR FILTRATION RATE > 60.0 (>39); GLUCOSE, FASTING 88 MG/DL (74-106); POTASSIUM SERUM 5.4 MMOL/L (3.5-5.1); SODIUM LEVEL 145 MMOL/L (136-145)
[2024-08-26 20:56] LABS: KETONE, URINE AUTO RFX NEGATIVE (NEGATIVE); LEUKOCYTE ESTERASE UR AUTO RFX 3+ (NEGATIVE); NITRITE, URINE AUTO RFX NEGATIVE (NEGATIVE); RBC, URINE AUTO RFX TNTC /HPF (0-3); SQUAM EPITHELIAL CELL UR AURFX 1 /HPF (0-6); WBC, URINE AUTO RFX 146 /HPF (0-3)
[2024-08-26] MEDS: cefTRIAXone SOD 2 GM in DEXTROSE 5% (D5W) ADV/MINI-BAG 50 ML IV SCH (21:19)
[2024-08-26] MEDS: PANTOPRAZOLE 40MG VIAL IV SCH (21:26)
[2024-08-26 23:02] LABS: HEMATOCRIT 27.9 % (36.0-47.0); HEMOGLOBIN 9.4 g/dl (12.0-15.5)
[2024-08-27] VITALS (10 sets, daily range): BP systolic 92–127; BP diastolic 51–64; TEMP 96.5–99; O2SAT 98–100
[2024-08-27 06:45] LABS: ALBUMIN 1.9 G/DL (3.2-5.2); ALKALINE PHOSPHATASE 63 U/L (35-104); ALT/SGPT 29 U/L (7.0-40); AST/SGOT 26 U/L (<34); BILIRUBIN,TOTAL 0.7 MG/DL (0.3-1.2); BLOOD UREA NITROGEN 41 MG/DL (9-23); CALCIUM LEVEL 7.8 MG/DL (8.3-10.6); CARBON DIOXIDE LEVEL 24 MMOL/L (20-31); CHLORIDE LEVEL 115 MMOL/L (98-107); CREATININE FOR GFR 0.87 MG/DL (0.55-1.30); GLOMERULAR FILTRATION RATE > 60.0 (>39); GLUCOSE, FASTING 78 MG/DL (74-106); POTASSIUM SERUM 5.3 MMOL/L (3.5-5.1); SODIUM LEVEL 147 MMOL/L (136-145); TOTAL PROTEIN 4.7 G/DL (5.7-8.2)
[2024-08-27 08:25] LABS: BASO # 0.1 10^3/uL (0.0-0.2); BASO % 0.5 % (0.0-1.0); EOS # 0.2 10^3/uL (0.0-0.5); EOS % 1.1 % (0.0-3.0); HEMOGLOBIN 9.7 g/dl (12.0-15.5); LYMPH # 3.9 10^3/uL (1.5-5.0); LYMPH % 17.5 % (24.0-44.0); MEAN CORPUSCULAR HEMOGLOBIN 29.8 pg (27.0-33.0); MEAN CORPUSCULAR HGB CONC 33.4 g/dl (32.0-36.5); MONO # 1.1 10^3/uL (0.0-0.8); MONO % 4.9 % (2.0-8.0); NEUTROPHILS # 16.4 10^3/uL (1.5-8.5); NEUTROPHILS % 74.2 % (36.0-66.0); RED BLOOD COUNT 3.26 10^6/uL (4.00-5.40); WHITE BLOOD COUNT 22.2 10^3/uL (4.0-10.0)
[2024-08-27] MEDS: PATIROMER SORBITEX CALCIUM 8.4 GM POWDER PACKET (VELTASSA) PO ONE (12:36)
[2024-08-27 21:34] LABS: BLOOD UREA NITROGEN 29 MG/DL (9-23); CALCIUM LEVEL 7.9 MG/DL (8.3-10.6); CARBON DIOXIDE LEVEL 24 MMOL/L (20-31); CHLORIDE LEVEL 115 MMOL/L (98-107); CREATININE FOR GFR 0.78 MG/DL (0.55-1.30); GLOMERULAR FILTRATION RATE > 60.0 (>39); GLUCOSE, FASTING 85 MG/DL (74-106); POTASSIUM SERUM 4.8 MMOL/L (3.5-5.1); SODIUM LEVEL 145 MMOL/L (136-145)
[2024-08-28] VITALS (12 sets, daily range): BP systolic 80–116; BP diastolic 50–68; TEMP 96.7–98.7; O2SAT 97–100
[2024-08-28] MEDS: LR 1,000 ML IV ONE (04:28)
[2024-08-28 06:16] LABS: BASO # 0.1 10^3/uL (0.0-0.2); BASO % 0.4 % (0.0-1.0); EOS # 0.2 10^3/uL (0.0-0.5); EOS % 1.3 % (0.0-3.0); HEMOGLOBIN 7.9 g/dl (12.0-15.5); LYMPH # 3.1 10^3/uL (1.5-5.0); LYMPH % 19.1 % (24.0-44.0); MEAN CORPUSCULAR HEMOGLOBIN 28.9 pg (27.0-33.0); MEAN CORPUSCULAR HGB CONC 31.6 g/dl (32.0-36.5); MEAN CORPUSCULAR VOLUME 91.6 fl (80.0-96.0); MONO # 0.7 10^3/uL (0.0-0.8); MONO % 4.6 % (2.0-8.0); NEUTROPHILS # 11.9 10^3/uL (1.5-8.5); NEUTROPHILS % 73.2 % (36.0-66.0); PLATELET COUNT, AUTOMATED 184 10^3/uL (150-450); RED BLOOD COUNT 2.73 10^6/uL (4.00-5.40); WHITE BLOOD COUNT 16.3 10^3/uL (4.0-10.0)
[2024-08-28 06:39] LABS: BLOOD UREA NITROGEN 24 MG/DL (9-23); CALCIUM LEVEL 8.1 MG/DL (8.3-10.6); CARBON DIOXIDE LEVEL 24 MMOL/L (20-31); CHLORIDE LEVEL 114 MMOL/L (98-107); CREATININE FOR GFR 0.84 MG/DL (0.55-1.30); GLOMERULAR FILTRATION RATE > 60.0 (>39); GLUCOSE, FASTING 82 MG/DL (74-106); POTASSIUM SERUM 4.4 MMOL/L (3.5-5.1); SODIUM LEVEL 146 MMOL/L (136-145)
[2024-08-28 10:07] LABS: BASO # 0.1 10^3/uL (0.0-0.2); BASO % 0.7 % (0.0-1.0); EOS # 0.2 10^3/uL (0.0-0.5); EOS % 1.4 % (0.0-3.0); HEMATOCRIT 28.1 % (36.0-47.0); HEMOGLOBIN 8.9 g/dl (12.0-15.5); LYMPH # 3.2 10^3/uL (1.5-5.0); LYMPH % 18.2 % (24.0-44.0); MEAN CORPUSCULAR HEMOGLOBIN 29.5 pg (27.0-33.0); MEAN CORPUSCULAR HGB CONC 31.7 g/dl (32.0-36.5); MONO # 0.9 10^3/uL (0.0-0.8); NEUTROPHILS # 12.9 10^3/uL (1.5-8.5); NEUTROPHILS % 73.6 % (36.0-66.0); PLATELET COUNT, AUTOMATED 271 10^3/uL (150-450); RED BLOOD COUNT 3.02 10^6/uL (4.00-5.40); WHITE BLOOD COUNT 17.5 10^3/uL (4.0-10.0)
[2024-08-28] MEDS: HYDROCORTISONE 100MG/2ML VIAL IV SCH (16:47)
[2024-08-28 18:05] LABS: HEMATOCRIT 30.8 % (36.0-47.0)
[2024-08-29 05:06] VITALS: BP 95/58; TEMP 97.6; O2SAT 98
[2024-08-29 05:52] LABS: SOURCE PERIPHERAL SMEAR
[2024-08-29 05:53] LABS: BASO % 0.2 % (0.0-1.0); EOS % 0.1 % (0.0-3.0); HEMATOCRIT 28.3 % (36.0-47.0); HEMOGLOBIN 9.2 g/dl (12.0-15.5); LYMPH # 1.5 10^3/uL (1.5-5.0); LYMPH % 9.3 % (24.0-44.0); MEAN CORPUSCULAR HEMOGLOBIN 29.9 pg (27.0-33.0); MEAN CORPUSCULAR HGB CONC 32.5 g/dl (32.0-36.5); MEAN CORPUSCULAR VOLUME 91.9 fl (80.0-96.0); MONO # 0.4 10^3/uL (0.0-0.8); MONO % 2.6 % (2.0-8.0); NEUTROPHILS # 14.1 10^3/uL (1.5-8.5); NEUTROPHILS % 87.1 % (36.0-66.0); PLATELET COUNT, AUTOMATED 258 10^3/uL (150-450); RED BLOOD COUNT 3.08 10^6/uL (4.00-5.40); WHITE BLOOD COUNT 16.2 10^3/uL (4.0-10.0)
[2024-08-29 06:14] LABS: BLOOD UREA NITROGEN 17 MG/DL (9-23); CALCIUM LEVEL 7.8 MG/DL (8.3-10.6); CARBON DIOXIDE LEVEL 23 MMOL/L (20-31); CHLORIDE LEVEL 116 MMOL/L (98-107); GLOMERULAR FILTRATION RATE > 60.0 (>39); GLUCOSE, FASTING 116 MG/DL (74-106); POTASSIUM SERUM 4.4 MMOL/L (3.5-5.1); SODIUM LEVEL 147 MMOL/L (136-145)
[2024-08-29 07:27] VITALS: BP 104/61; TEMP 97.4; O2SAT 98
[2024-08-29 12:06] VITALS: BP 99/55; TEMP 97.7; O2SAT 99
[2024-08-29 15:53] LABS: HEMATOCRIT 31.6 % (36.0-47.0); HEMOGLOBIN 9.8 g/dl (12.0-15.5)
[2024-08-29 16:00] VITALS: BP 112/60; TEMP 97.6; O2SAT 96
[2024-08-29 19:36] VITALS: BP 93/52; TEMP 97.5; O2SAT 100
[2024-08-29 23:46] VITALS: BP 94/55; TEMP 97.1; O2SAT 95
[2024-08-30 03:50] VITALS: BP 108/63; TEMP 96.8; O2SAT 98
[2024-08-30 06:42] LABS: BASO # 0.1 10^3/uL (0.0-0.2); BASO % 0.4 % (0.0-1.0); EOS # 0.1 10^3/uL (0.0-0.5); EOS % 0.9 % (0.0-3.0); HEMATOCRIT 29.9 % (36.0-47.0); HEMOGLOBIN 9.4 g/dl (12.0-15.5); LYMPH % 20.4 % (24.0-44.0); MEAN CORPUSCULAR HEMOGLOBIN 29.5 pg (27.0-33.0); MEAN CORPUSCULAR HGB CONC 31.4 g/dl (32.0-36.5); MEAN CORPUSCULAR VOLUME 93.7 fl (80.0-96.0); MONO # 0.8 10^3/uL (0.0-0.8); MONO % 5.3 % (2.0-8.0); NEUTROPHILS # 10.7 10^3/uL (1.5-8.5); NEUTROPHILS % 72.4 % (36.0-66.0); PLATELET COUNT, AUTOMATED 266 10^3/uL (150-450); RED BLOOD COUNT 3.19 10^6/uL (4.00-5.40); WHITE BLOOD COUNT 14.8 10^3/uL (4.0-10.0)
[2024-08-30 06:55] LABS: CALCIUM LEVEL 8.2 MG/DL (8.3-10.6); CREATININE FOR GFR 0.97 MG/DL (0.55-1.30); GLOMERULAR FILTRATION RATE 59.6 (>39); POTASSIUM SERUM 4.1 MMOL/L (3.5-5.1)
[2024-08-30 07:36] VITALS: BP 112/54; TEMP 97.4; O2SAT 100
[2024-08-30] MEDS ORDERED: HYDROCORTISONE 100MG/2ML VIAL IV SCH (09:00)
[2024-08-30] MEDS: HYDROCORTISONE 5MG TABLET PO SCH ×2 (09:42→21:05)
[2024-08-30 11:35] VITALS: BP 104/59; TEMP 97.8; O2SAT 100
[2024-08-30] MEDS: D5W 1,000 ML IV SCH (14:45)
[2024-08-30 16:00] VITALS: BP 116/64; TEMP 97.6; O2SAT 96
[2024-08-30 17:11] LABS: CALCIUM LEVEL 8.1 MG/DL (8.3-10.6); GLOMERULAR FILTRATION RATE 57.5 (>39); POTASSIUM SERUM 4.3 MMOL/L (3.5-5.1)
[2024-08-30 20:00] VITALS: BP 109/57; TEMP 97; O2SAT 100
[2024-08-30 23:12] VITALS: BP 100/55; TEMP 98.1; O2SAT 96
[2024-08-31 03:57] VITALS: BP 102/59; TEMP 96.9; O2SAT 95
[2024-08-31 04:00] VITALS: BP 102/59; TEMP 96.9; O2SAT 95
[2024-08-31 06:36] LABS: BASO # 0.1 10^3/uL (0.0-0.2); BASO % 0.5 % (0.0-1.0); EOS # 0.1 10^3/uL (0.0-0.5); EOS % 0.7 % (0.0-3.0); HEMATOCRIT 29.7 % (36.0-47.0); HEMOGLOBIN 9.5 g/dl (12.0-15.5); LYMPH # 2.6 10^3/uL (1.5-5.0); MEAN CORPUSCULAR HEMOGLOBIN 30.2 pg (27.0-33.0); MEAN CORPUSCULAR VOLUME 94.3 fl (80.0-96.0); MONO # 0.8 10^3/uL (0.0-0.8); MONO % 6.5 % (2.0-8.0); NEUTROPHILS # 8.8 10^3/uL (1.5-8.5); NEUTROPHILS % 70.7 % (36.0-66.0); PLATELET COUNT, AUTOMATED 235 10^3/uL (150-450); RED BLOOD COUNT 3.15 10^6/uL (4.00-5.40); WHITE BLOOD COUNT 12.5 10^3/uL (4.0-10.0)
[2024-08-31 07:03] LABS: CALCIUM LEVEL 7.8 MG/DL (8.3-10.6); CREATININE FOR GFR 0.98 MG/DL (0.55-1.30); GLOMERULAR FILTRATION RATE 58.9 (>39); POTASSIUM SERUM 3.9 MMOL/L (3.5-5.1)
[2024-08-31] MEDS ORDERED: CORT5TAB2 PO ×2 (09:10)
[2024-08-31] MEDS ORDERED: SUCR1TA PO (09:10)
[2024-08-31] MEDS ORDERED: PROT1TAB2 PO (09:10)
[2024-08-31] MEDS ORDERED: CEFD1CAP9 PO (09:11)
[2024-08-31] MEDS ORDERED: TORS40TA PO (09:13)
[2024-08-31] MEDS: cefTRIAXone SOD 2 GM in DEXTROSE 5% (D5W) ADV/MINI-BAG 50 ML IV ONE (10:08)
[2024-08-31] MEDS ORDERED: APIXABAN 2.5 MG TAB (ELIQUIS) PO SCH (21:00)
== END 2024-08-31 11:20 | DRG 659 ==
LOC: M ED 16:14 → EDBD 16:14 → M SDC 18:14 → M ED INP 18:52 → M PCU 21:14 → M ICU 23:44 → M PCU 08-22 05:34
PROVIDERS: ADMIT Family Medicine; ATTEND Student in an Organized Health Care Education/Training Program
PROC: 0T778DZ Dilation of Left Ureter with Intraluminal Device, Via Natural or Artificial Opening Endoscopic (ICD-10-PCS; principal; 2024-08-17 19:00)
PROC: 0DJ08ZZ Inspection of Upper Intestinal Tract, Via Natural or Artificial Opening Endoscopic (ICD-10-PCS; 2024-08-28)
DX: T83.511A Infection and inflammatory reaction due to indwelling urethral catheter, initial encounter (principal); A41.9 Sepsis, unspecified organism; R65.21 Severe sepsis with septic shock; G93.41 Metabolic encephalopathy; K25.4 Chronic or unspecified gastric ulcer with hemorrhage; I13.0 Hypertensive heart and chronic kidney disease with heart failure and stage 1 through stage 4 chronic kidney disease, or unspecified chronic kidney disease; N17.9 Acute kidney failure, unspecified; I48.20 Chronic atrial fibrillation, unspecified; I47.20 Ventricular tachycardia, unspecified; E27.40 Unspecified adrenocortical insufficiency; E87.0 Hyperosmolality and hypernatremia; D62 Acute posthemorrhagic anemia; I50.32 Chronic diastolic (congestive) heart failure; N20.1 Calculus of ureter; E03.9 Hypothyroidism, unspecified; N18.30 Chronic kidney disease, stage 3 unspecified; R31.0 Gross hematuria; R00.1 Bradycardia, unspecified; B96.20 Unspecified Escherichia coli [E. coli] as the cause of diseases classified elsewhere; M48.061 Spinal stenosis, lumbar region without neurogenic claudication; G89.29 Other chronic pain; M54.30 Sciatica, unspecified side; E87.5 Hyperkalemia; M54.16 Radiculopathy, lumbar region; K44.9 Diaphragmatic hernia without obstruction or gangrene; N39.0 Urinary tract infection, site not specified; Y84.6 Urinary catheterization as the cause of abnormal reaction of the patient, or of later complication, without mention of misadventure at the time of the procedure; Z88.8 Allergy status to other drugs, medicaments and biological substances; Z79.899 Other long term (current) drug therapy; Z79.890 Hormone replacement therapy; I27.20 Pulmonary hypertension, unspecified; I08.0 Rheumatic disorders of both mitral and aortic valves; E78.5 Hyperlipidemia, unspecified; Z66 Do not resuscitate; G62.9 Polyneuropathy, unspecified

== ENCOUNTER → 2024-08-17 | Outpatient (REF) | payer MEDICARE, OTHER, MEDICAID ==
[~2024-08-17] MED LIST changes: +ALDA25TA2 PO; +ARTIDRO4 OU; +DULO1CAP5 PO; +ELIQ2.5T PO; +ONDA-83 PO; +POTA10CA70 PO; +PYRI25TA2 PO; +SENN-23 PO; +TORS40TA PO; +TRIA1CR80 TOP
== END ==
PROVIDERS: ATTEND Physician Assistant
DX: N39.0 Urinary tract infection, site not specified (principal); Z53.9 Procedure and treatment not carried out, unspecified reason

== ENCOUNTER → 2024-08-17 | Outpatient (REF) | payer OTHER, MEDICARE, MEDICAID ==
[2024-08-17 15:07] LABS: BASO # 0.1 10^3/uL (0.0-0.2); BASO % 0.2 % (0.0-1.0); HEMOGLOBIN 13.6 g/dl (12.0-15.5); LYMPH # 1.6 10^3/uL (1.5-5.0); LYMPH % 5.3 % (24.0-44.0); MEAN CORPUSCULAR HEMOGLOBIN 30.2 pg (27.0-33.0); MEAN CORPUSCULAR HGB CONC 31.6 g/dl (32.0-36.5); MEAN CORPUSCULAR VOLUME 95.6 fl (80.0-96.0); MONO # 1.3 10^3/uL (0.0-0.8); MONO % 4.4 % (2.0-8.0); NEUTROPHILS # 26.1 10^3/uL (1.5-8.5); NEUTROPHILS % 89.3 % (36.0-66.0); PLATELET COUNT, AUTOMATED 250 10^3/uL (150-450); WHITE BLOOD COUNT 29.2 10^3/uL (4.0-10.0)
[2024-08-17 15:29] LABS: ALBUMIN 2.6 G/DL (3.2-5.2); BILIRUBIN,DIRECT 0.6 MG/DL (<0.4); BILIRUBIN,TOTAL 1.4 MG/DL (0.3-1.2); CALCIUM LEVEL 8.1 MG/DL (8.3-10.6); CREATININE FOR GFR 3.32 MG/DL (0.55-1.30); GLOMERULAR FILTRATION RATE 14.4 (>39); POTASSIUM SERUM 4.2 MMOL/L (3.5-5.1); TOTAL PROTEIN 6.2 G/DL (5.7-8.2)
== END ==
PROVIDERS: ATTEND Physician Assistant
DX: R10.9 Unspecified abdominal pain (principal)

== ENCOUNTER → 2024-08-17 | Outpatient (CLI) | payer MEDICARE, OTHER, MEDICAID | LOC: M PLAIMG 12:14 | PROVIDERS: ATTEND Physician Assistant | DX: R10.9 Unspecified abdominal pain (principal); N13.2 Hydronephrosis with renal and ureteral calculous obstruction; K44.9 Diaphragmatic hernia without obstruction or gangrene; K40.90 Unilateral inguinal hernia, without obstruction or gangrene, not specified as recurrent ==

== ENCOUNTER → 2024-08-19 | Outpatient (REF) | payer MEDICARE, OTHER, MEDICAID ==
[~2024-08-19] MED LIST changes: +ALDA25TA2 PO; +ARTIDRO4 OU; +DULO1CAP5 PO; +ELIQ2.5T PO; +ONDA-83 PO; +POTA10CA70 PO; +PYRI25TA2 PO; +SENN-23 PO; +TORS40TA PO; +TRIA1CR80 TOP
== END ==
PROVIDERS: ATTEND Physician Assistant
DX: N17.9 Acute kidney failure, unspecified (principal); Z53.8 Procedure and treatment not carried out for other reasons

== ENCOUNTER → 2024-08-22 | Outpatient (REF) | payer MEDICARE, OTHER, MEDICAID | PROVIDERS: ATTEND Physician Assistant | DX: N17.9 Acute kidney failure, unspecified (principal); Z53.9 Procedure and treatment not carried out, unspecified reason ==

== ENCOUNTER → 2024-09-01 | Outpatient (REF) | payer MEDICAID, MEDICARE, OTHER ==
[~2024-09-01] MED LIST changes: +CEFD1CAP9 PO; +CORT5TAB2 PO; +PROT1TAB2 PO; +SUCR1TA PO
== END ==
PROVIDERS: ATTEND Internal Medicine
DX: I48.91 Unspecified atrial fibrillation (principal); Z53.9 Procedure and treatment not carried out, unspecified reason

== ENCOUNTER → 2024-09-01 | Outpatient (REF) | payer OTHER, MEDICARE | PROVIDERS: ATTEND Physician Assistant | DX: I48.91 Unspecified atrial fibrillation (principal); Z53.9 Procedure and treatment not carried out, unspecified reason ==

== ENCOUNTER → 2024-09-02 | Outpatient (REF) ==
[2024-09-02 08:30] LABS: HEMATOCRIT 28.5 % (36.0-47.0); HEMOGLOBIN 9.2 g/dl (12.0-15.5); MEAN CORPUSCULAR HEMOGLOBIN 30.2 pg (27.0-33.0); MEAN CORPUSCULAR HGB CONC 32.3 g/dl (32.0-36.5); MEAN CORPUSCULAR VOLUME 93.4 fl (80.0-96.0); PLATELET COUNT, AUTOMATED 254 10^3/uL (150-450); RED BLOOD COUNT 3.05 10^6/uL (4.00-5.40); WHITE BLOOD COUNT 11.2 10^3/uL (4.0-10.0)
[2024-09-02 08:57] LABS: CALCIUM LEVEL 7.6 MG/DL (8.3-10.6); CREATININE FOR GFR 0.99 MG/DL (0.55-1.30); GLOMERULAR FILTRATION RATE 58.2 (>39); POTASSIUM SERUM 3.2 MMOL/L (3.5-5.1)
== END ==
PROVIDERS: ATTEND Physician Assistant
DX: I48.91 Unspecified atrial fibrillation (principal)

== ENCOUNTER → 2024-09-05 | Outpatient (REF) ==
[2024-09-05 08:59] LABS: HEMATOCRIT 29.7 % (36.0-47.0); HEMOGLOBIN 9.4 g/dl (12.0-15.5); MEAN CORPUSCULAR HEMOGLOBIN 29.7 pg (27.0-33.0); MEAN CORPUSCULAR HGB CONC 31.6 g/dl (32.0-36.5); MEAN CORPUSCULAR VOLUME 93.7 fl (80.0-96.0); PLATELET COUNT, AUTOMATED 264 10^3/uL (150-450); RED BLOOD COUNT 3.17 10^6/uL (4.00-5.40); WHITE BLOOD COUNT 9.4 10^3/uL (4.0-10.0)
[2024-09-05 09:25] LABS: CALCIUM LEVEL 8.1 MG/DL (8.3-10.6); CREATININE FOR GFR 1.08 MG/DL (0.55-1.30); GLOMERULAR FILTRATION RATE 52.7 (>39); POTASSIUM SERUM 3.3 MMOL/L (3.5-5.1)
== END ==
PROVIDERS: ATTEND Physician Assistant
DX: E86.0 Dehydration (principal); D64.9 Anemia, unspecified

== ENCOUNTER → 2024-09-07 | Outpatient (REF) ==
[2024-09-07 13:22] LABS: BASO # 0.1 10^3/uL (0.0-0.2); EOS # 0.1 10^3/uL (0.0-0.5); EOS % 1.1 % (0.0-3.0); HEMATOCRIT 32.2 % (36.0-47.0); LYMPH # 1.6 10^3/uL (1.5-5.0); LYMPH % 17.5 % (24.0-44.0); MEAN CORPUSCULAR HEMOGLOBIN 29.3 pg (27.0-33.0); MEAN CORPUSCULAR HGB CONC 31.1 g/dl (32.0-36.5); MEAN CORPUSCULAR VOLUME 94.4 fl (80.0-96.0); MONO # 0.3 10^3/uL (0.0-0.8); MONO % 3.7 % (2.0-8.0); NEUTROPHILS # 6.7 10^3/uL (1.5-8.5); NEUTROPHILS % 76.2 % (36.0-66.0); PLATELET COUNT, AUTOMATED 269 10^3/uL (150-450); RED BLOOD COUNT 3.41 10^6/uL (4.00-5.40); WHITE BLOOD COUNT 8.8 10^3/uL (4.0-10.0)
[2024-09-07 13:53] LABS: CALCIUM LEVEL 8.1 MG/DL (8.3-10.6); CREATININE FOR GFR 1.27 MG/DL (0.55-1.30); DIGOXIN LEVEL 0.8 NG/ML (0.8-2.0); GLOMERULAR FILTRATION RATE 43.7 (>39); POTASSIUM SERUM 3.9 MMOL/L (3.5-5.1)
[2024-09-07 13:57] LABS: THYROID STIMULATING HORMONE 1.881 uIU/ML (0.55-4.78)
== END ==
PROVIDERS: ATTEND Internal Medicine
DX: I48.91 Unspecified atrial fibrillation (principal)

== ENCOUNTER → 2024-09-16 | Outpatient (REF) ==
[2024-09-16 07:50] LABS: HEMATOCRIT 31.6 % (36.0-47.0); HEMOGLOBIN 9.8 g/dl (12.0-15.5); MEAN CORPUSCULAR VOLUME 96.6 fl (80.0-96.0); PLATELET COUNT, AUTOMATED 237 10^3/uL (150-450); RED BLOOD COUNT 3.27 10^6/uL (4.00-5.40); WHITE BLOOD COUNT 10.1 10^3/uL (4.0-10.0)
[2024-09-16 08:12] LABS: CALCIUM LEVEL 8.4 MG/DL (8.3-10.6); CREATININE FOR GFR 1.1 MG/DL (0.55-1.30); GLOMERULAR FILTRATION RATE 51.5 (>39); POTASSIUM SERUM 4.3 MMOL/L (3.5-5.1)
== END ==
PROVIDERS: ATTEND Internal Medicine
DX: I48.91 Unspecified atrial fibrillation (principal)

== ENCOUNTER → 2024-09-16 | Outpatient (REF) ==
[2024-09-16 17:52] LABS: APPEARANCE, URINE CLOUDY (CLEAR); BACTERIA, URINE AUTO 1+ (NEGATIVE); BILIRUBIN, URINE AUTO NEGATIVE (NEGATIVE); BLOOD, URINE BLOOD 3+ (NEGATIVE); COLOR, URINE AMBER (YELLOW); GLUCOSE, URINE (UA) AUTO NEGATIVE (NEGATIVE); KETONE, URINE AUTO NEGATIVE (NEGATIVE); LEUKOCYTE ESTERASE, URINE AUTO 3+ (NEGATIVE); MUCUS, URINE SMALL (NEGATIVE); NITRITE, URINE AUTO POSITIVE (NEGATIVE); PROTEIN, URINE AUTO 2+ mg/dL (NEGATIVE); RBC, URINE AUTO TNTC /HPF (0-3); SPECIFIC GRAVITY URINE AUTO 1.012 (1.002-1.035); SQUAMOUS EPITHELIAL CELL UR AU 1 /HPF (0-6); UROBILINOGEN, URINE AUTO 0.2 mg/dL (0.0-2.0); WBC, URINE AUTO TNTC /HPF (0-3)
== END ==
PROVIDERS: ATTEND Internal Medicine
DX: N39.0 Urinary tract infection, site not specified (principal)

== ENCOUNTER → 2024-09-20 | Outpatient (CLI) | payer OTHER, MEDICARE, MEDICAID ==
[~2024-09-20] VITALS: Ht 154.9 cm; Wt 86.3 kg
[~2024-09-20] MED LIST changes: +POTA-136 PO; +TAMS1CAP17 PO
[2024-09-20 13:00] VITALS: BP 152/93; O2SAT 98
== END ==
LOC: M PAL 13:08
PROVIDERS: ATTEND Physician Assistant
DX: Z51.5 Encounter for palliative care (principal); Z66 Do not resuscitate; C37 Malignant neoplasm of thymus; R54 Age-related physical debility; G62.9 Polyneuropathy, unspecified; Z99.3 Dependence on wheelchair; Z79.891 Long term (current) use of opiate analgesic; Z88.8 Allergy status to other drugs, medicaments and biological substances; Z79.899 Other long term (current) drug therapy

== ENCOUNTER → 2024-09-23 | Outpatient (REF) ==
[2024-09-23 17:35] LABS: HEMATOCRIT 34.8 % (36.0-47.0); HEMOGLOBIN 10.8 g/dl (12.0-15.5); MEAN CORPUSCULAR HEMOGLOBIN 30.3 pg (27.0-33.0); MEAN CORPUSCULAR VOLUME 97.8 fl (80.0-96.0); PLATELET COUNT, AUTOMATED 281 10^3/uL (150-450); RED BLOOD COUNT 3.56 10^6/uL (4.00-5.40); WHITE BLOOD COUNT 11.1 10^3/uL (4.0-10.0)
[2024-09-23 18:06] LABS: CALCIUM LEVEL 8.6 MG/DL (8.3-10.6); CREATININE FOR GFR 1.16 MG/DL (0.55-1.30); GLOMERULAR FILTRATION RATE 49.2 (>39); POTASSIUM SERUM 5.7 MMOL/L (3.5-5.1)
== END ==
PROVIDERS: ATTEND Physician Assistant
DX: N39.0 Urinary tract infection, site not specified (principal)

== ENCOUNTER → 2024-09-26 | Outpatient (REF) ==
[2024-09-26 10:31] LABS: HEMATOCRIT 36.2 % (36.0-47.0); HEMOGLOBIN 11.1 g/dl (12.0-15.5); MEAN CORPUSCULAR HEMOGLOBIN 29.4 pg (27.0-33.0); MEAN CORPUSCULAR HGB CONC 30.7 g/dl (32.0-36.5); MEAN CORPUSCULAR VOLUME 95.8 fl (80.0-96.0); PLATELET COUNT, AUTOMATED 322 10^3/uL (150-450); RED BLOOD COUNT 3.78 10^6/uL (4.00-5.40)
[2024-09-26 11:03] LABS: CALCIUM LEVEL 9.3 MG/DL (8.3-10.6); CREATININE FOR GFR 1.25 MG/DL (0.55-1.30)
== END ==
PROVIDERS: ATTEND Physician Assistant
DX: R31.9 Hematuria, unspecified (principal)

== ENCOUNTER → 2024-09-28 | Outpatient (REF) ==
[2024-09-28 07:52] LABS: BASO # 0.1 10^3/uL (0.0-0.2); BASO % 0.7 % (0.0-1.0); EOS # 0.2 10^3/uL (0.0-0.5); EOS % 1.7 % (0.0-3.0); HEMATOCRIT 32.6 % (36.0-47.0); HEMOGLOBIN 10.2 g/dl (12.0-15.5); LYMPH # 2.7 10^3/uL (1.5-5.0); LYMPH % 21.5 % (24.0-44.0); MEAN CORPUSCULAR HEMOGLOBIN 29.8 pg (27.0-33.0); MEAN CORPUSCULAR HGB CONC 31.3 g/dl (32.0-36.5); MEAN CORPUSCULAR VOLUME 95.3 fl (80.0-96.0); MONO # 0.9 10^3/uL (0.0-0.8); NEUTROPHILS # 8.7 10^3/uL (1.5-8.5); NEUTROPHILS % 68.5 % (36.0-66.0); PLATELET COUNT, AUTOMATED 273 10^3/uL (150-450); RED BLOOD COUNT 3.42 10^6/uL (4.00-5.40); WHITE BLOOD COUNT 12.7 10^3/uL (4.0-10.0)
[2024-09-28 08:15] LABS: ALBUMIN 2.5 G/DL (3.2-5.2); BILIRUBIN,TOTAL 0.8 MG/DL (0.3-1.2); CALCIUM LEVEL 8.4 MG/DL (8.3-10.6); CREATININE FOR GFR 1.31 MG/DL (0.55-1.30); GLOMERULAR FILTRATION RATE 42.5 (>39); POTASSIUM SERUM 3.4 MMOL/L (3.5-5.1); TOTAL PROTEIN 5.5 G/DL (5.7-8.2)
== END ==
PROVIDERS: ATTEND Physician Assistant
DX: D72.829 Elevated white blood cell count, unspecified (principal)

== ENCOUNTER → 2024-09-29 | Outpatient (REF) | PROVIDERS: ATTEND Internal Medicine | DX: D72.829 Elevated white blood cell count, unspecified (principal) ==

== ENCOUNTER → 2024-10-10 | Outpatient (REF) ==
[2024-10-10 11:16] LABS: HEMATOCRIT 35.5 % (36.0-47.0); HEMOGLOBIN 10.9 g/dl (12.0-15.5); MEAN CORPUSCULAR HEMOGLOBIN 29.3 pg (27.0-33.0); MEAN CORPUSCULAR HGB CONC 30.7 g/dl (32.0-36.5); MEAN CORPUSCULAR VOLUME 95.4 fl (80.0-96.0); PLATELET COUNT, AUTOMATED 310 10^3/uL (150-450); RED BLOOD COUNT 3.72 10^6/uL (4.00-5.40)
[2024-10-10 11:50] LABS: CREATININE FOR GFR 1.2 MG/DL (0.55-1.30); DIGOXIN LEVEL 1.2 NG/ML (0.8-2.0); GLOMERULAR FILTRATION RATE 47.2 (>39); POTASSIUM SERUM 3.8 MMOL/L (3.5-5.1)
== END ==
PROVIDERS: ATTEND Physician Assistant
DX: I48.91 Unspecified atrial fibrillation (principal)

== ENCOUNTER → 2024-10-12 | Outpatient (REF) | payer OTHER, MEDICARE, MEDICAID ==
[~2024-10-12] MED LIST changes: -PREG25CA PO; +PREG25CA63 PO
[2024-10-13 13:20] LABS: APPEARANCE, URINE CLOUDY (CLEAR); BACTERIA, URINE AUTO 2+ (NEGATIVE); BILIRUBIN, URINE AUTO NEGATIVE (NEGATIVE); BLOOD, URINE BLOOD 3+ (NEGATIVE); COLOR, URINE AMBER (YELLOW); GLUCOSE, URINE (UA) AUTO NEGATIVE (NEGATIVE); KETONE, URINE AUTO NEGATIVE (NEGATIVE); LEUKOCYTE ESTERASE, URINE AUTO 3+ (NEGATIVE); NITRITE, URINE AUTO NEGATIVE (NEGATIVE); PROTEIN, URINE AUTO 2+ mg/dL (NEGATIVE); RBC, URINE AUTO TNTC /HPF (0-3); SPECIFIC GRAVITY URINE AUTO 1.014 (1.002-1.035); SQUAMOUS EPITHELIAL CELL UR AU 0 /HPF (0-6); UROBILINOGEN, URINE AUTO 0.2 mg/dL (0.0-2.0); WBC, URINE AUTO TNTC /HPF (0-3)
== END ==
PROVIDERS: ATTEND Internal Medicine
DX: Z01.818 Encounter for other preprocedural examination (principal); Z79.899 Other long term (current) drug therapy

== ENCOUNTER → 2024-10-18 | Outpatient (REF) ==
[~2024-10-18] MED LIST changes: +CORT10TA PO
== END ==
PROVIDERS: ATTEND Internal Medicine
DX: Z01.818 Encounter for other preprocedural examination (principal); Z53.8 Procedure and treatment not carried out for other reasons

== ENCOUNTER → 2024-10-20 | Outpatient (REF) ==
[2024-10-20 14:14] LABS: HEMATOCRIT 35.7 % (36.0-47.0); HEMOGLOBIN 10.8 g/dl (12.0-15.5); MEAN CORPUSCULAR HGB CONC 30.3 g/dl (32.0-36.5); MEAN CORPUSCULAR VOLUME 95.7 fl (80.0-96.0); PLATELET COUNT, AUTOMATED 293 10^3/uL (150-450); RED BLOOD COUNT 3.73 10^6/uL (4.00-5.40); WHITE BLOOD COUNT 12.7 10^3/uL (4.0-10.0)
[2024-10-20 14:42] LABS: CALCIUM LEVEL 8.8 MG/DL (8.3-10.6); CREATININE FOR GFR 1.22 MG/DL (0.55-1.30); GLOMERULAR FILTRATION RATE 46.3 (>39); POTASSIUM SERUM 4.1 MMOL/L (3.5-5.1)
== END ==
PROVIDERS: ATTEND Internal Medicine
DX: Z01.818 Encounter for other preprocedural examination (principal)

== ENCOUNTER → 2024-10-26 | Outpatient (REF) | PROVIDERS: ATTEND Physician Assistant | DX: Z01.818 Encounter for other preprocedural examination (principal); Z79.899 Other long term (current) drug therapy; Z53.8 Procedure and treatment not carried out for other reasons ==

== ENCOUNTER → 2024-10-31 | Outpatient (REF) ==
[2024-10-31 08:25] LABS: BASO # 0.1 10^3/uL (0.0-0.2); BASO % 0.7 % (0.0-1.0); EOS # 0.3 10^3/uL (0.0-0.5); EOS % 2.9 % (0.0-3.0); HEMATOCRIT 30.8 % (36.0-47.0); HEMOGLOBIN 9.4 g/dl (12.0-15.5); LYMPH % 27.7 % (24.0-44.0); MEAN CORPUSCULAR HEMOGLOBIN 28.5 pg (27.0-33.0); MEAN CORPUSCULAR HGB CONC 30.5 g/dl (32.0-36.5); MEAN CORPUSCULAR VOLUME 93.3 fl (80.0-96.0); MONO # 0.7 10^3/uL (0.0-0.8); MONO % 6.6 % (2.0-8.0); NEUTROPHILS # 6.7 10^3/uL (1.5-8.5); NEUTROPHILS % 61.6 % (36.0-66.0); PLATELET COUNT, AUTOMATED 255 10^3/uL (150-450); WHITE BLOOD COUNT 10.8 10^3/uL (4.0-10.0)
[2024-10-31 08:45] LABS: ALBUMIN 2.7 G/DL (3.2-5.2); BILIRUBIN,TOTAL 0.8 MG/DL (0.3-1.2); CALCIUM LEVEL 8.6 MG/DL (8.3-10.6); CREATININE FOR GFR 1.31 MG/DL (0.55-1.30); FOLATE 7.42 NG/ML (>5.4); GLOMERULAR FILTRATION RATE 42.5 (>39); POTASSIUM SERUM 3.4 MMOL/L (3.5-5.1); THYROID STIMULATING HORMONE 3.719 uIU/ML (0.55-4.78); TOTAL PROTEIN 5.6 G/DL (5.7-8.2)
[2024-10-31 10:37] LABS: HEMOGLOBIN A1c 5.2 % (4.0-6.0)
[2024-11-01 19:22] LABS: T P ELECTROPHORESIS SO 5.3 g/dL (6.1-8.1)
== END ==
PROVIDERS: ATTEND Internal Medicine
DX: N18.9 Chronic kidney disease, unspecified (principal)

== ENCOUNTER → 2024-11-03 | Outpatient (REF) | payer OTHER, MEDICARE ==
[~2024-11-03] MED LIST changes: +LIDO1ADH93 TD; +LIDO1ADH93 TOP; -LIDO5DIS41 TD; -LIDO5DIS41 TOP
== END ==
PROVIDERS: ATTEND Physician Assistant
DX: Z01.818 Encounter for other preprocedural examination (principal); Z53.8 Procedure and treatment not carried out for other reasons

== ENCOUNTER → 2024-11-04 | Outpatient (REF) | payer OTHER, MEDICARE ==
[2024-11-04 17:01] LABS: APPEARANCE, URINE CLOUDY (CLEAR); BILIRUBIN, URINE AUTO NEGATIVE (NEGATIVE); BLOOD, URINE BLOOD 3+ (NEGATIVE); COLOR, URINE AMBER (YELLOW); GLUCOSE, URINE (UA) AUTO NEGATIVE (NEGATIVE); KETONE, URINE AUTO NEGATIVE (NEGATIVE); LEUKOCYTE ESTERASE, URINE AUTO 3+ (NEGATIVE); MUCUS, URINE SMALL (NEGATIVE); NITRITE, URINE AUTO NEGATIVE (NEGATIVE); PROTEIN, URINE AUTO 2+ mg/dL (NEGATIVE); RBC, URINE AUTO TNTC /HPF (0-3); SPECIFIC GRAVITY URINE AUTO 1.017 (1.002-1.035); SQUAMOUS EPITHELIAL CELL UR AU 3 /HPF (0-6); UROBILINOGEN, URINE AUTO 0.2 mg/dL (0.0-2.0); WBC, URINE AUTO TNTC /HPF (0-3); YEAST LIKE CELL URINE AUTO SMALL
[2024-11-04 17:10] LABS: BACTERIA, URINE AUTO 2+ (NEGATIVE)
== END ==
PROVIDERS: ATTEND Physician Assistant
DX: Z01.818 Encounter for other preprocedural examination (principal); Z79.899 Other long term (current) drug therapy

== ENCOUNTER 2024-11-07 07:34 | Day surgery (SDC) | payer MEDICARE, OTHER ==
[2024-11-04] MEDS: ceFAZolin SOD 2 GM IV ONCE IV ONE (12:57)
[~2024-11-07] VITALS: Ht 154.9 cm; Wt 101.0 kg
[~2024-11-07 07:34] MED LIST changes: +LIDOCAINE 2% 100MG/5ML SDV (FOR ANES.) As Ordered ONE; +ONDANSETRON 4MG 2ML VIAL As Ordered ONE; +fentaNYL 100 MCG/2 ML INJECTION As Ordered ONE; +propofoL 200 MG/20 ML VIAL As Ordered ONE
[2024-11-07] MEDS: LR 1,000 ML IV SCH (09:33)
[2024-11-07] MEDS ORDERED: ceFAZolin SOD 2 GM IV ONCE IV ONE (10:00)
[2024-11-07] MEDS ORDERED: ACETAMINOPHEN 1000MG/100ML IV BAG As Ordered ONE (13:03)
[2024-11-07] MEDS: ISOVUE-300 61% 100ML VIAL As Ordered ONE (13:15)
[2024-11-07] MEDS ORDERED: oxyCODONE 5MG TAB PO PRN (14:10)
[2024-11-07] MEDS ORDERED: fentaNYL 100 MCG/2 ML INJECTION IV PRN (14:10)
[2024-11-07] MEDS ORDERED: LR 1,000 ML IV SCH (14:10)
[2024-11-07] MEDS ORDERED: ONDANSETRON 4MG 2ML VIAL IV PRN (14:10)
[2024-11-07 16:20] VITALS: BP 115/59; TEMP 97; O2SAT 97
== END 2024-11-07 16:55 | disposition home or self-care (01) ==
LOC: M SDC 07:34
PROVIDERS: ATTEND Urology
DX: N13.2 Hydronephrosis with renal and ureteral calculous obstruction (principal); I48.0 Paroxysmal atrial fibrillation; E03.9 Hypothyroidism, unspecified; K21.9 Gastro-esophageal reflux disease without esophagitis; F32.A Depression, unspecified; F41.9 Anxiety disorder, unspecified; Z79.01 Long term (current) use of anticoagulants; Z79.899 Other long term (current) drug therapy; Z79.890 Hormone replacement therapy; Z85.238 Personal history of other malignant neoplasm of thymus; Z88.8 Allergy status to other drugs, medicaments and biological substances
CPT/HCPCS: 52332; 52351; 76000; C1769; C1894; C2617; J0131; J0690; J1100; J2405; J3010; Q9967

== ENCOUNTER → 2024-11-09 | Outpatient (REF) | payer MEDICARE, OTHER ==
[~2024-11-09] MED LIST changes: -LIDOCAINE 2% 100MG/5ML SDV (FOR ANES.) As Ordered ONE; -ONDANSETRON 4MG 2ML VIAL As Ordered ONE; -fentaNYL 100 MCG/2 ML INJECTION As Ordered ONE; -propofoL 200 MG/20 ML VIAL As Ordered ONE
[2024-11-09 09:05] LABS: URIC ACID 7.1 MG/DL (3.1-7.8)
[2024-11-09 09:08] LABS: C REACTIVE PROTEIN QUANTITATIV 2.02 MG/DL (<1.0)
[2024-11-09 09:09] LABS: ALBUMIN 3.1 G/DL (3.2-5.2); BILIRUBIN,TOTAL 0.2 MG/DL (0.3-1.2); CALCIUM LEVEL 8.8 MG/DL (8.3-10.6); CREATININE FOR GFR 1.9 MG/DL (0.55-1.30); GLOMERULAR FILTRATION RATE 27.2 (>39); PHOSPHORUS LEVEL 3.6 MG/DL (2.4-5.1); POTASSIUM SERUM 4.9 MMOL/L (3.5-5.1); TOTAL PROTEIN 6.1 G/DL (5.7-8.2)
== END ==
PROVIDERS: ATTEND Physician Assistant
DX: Z01.89 Encounter for other specified special examinations (principal); M12.9 Arthropathy, unspecified

== ENCOUNTER → 2024-11-09 | Outpatient (CLI) | payer OTHER, MEDICARE, MEDICAID | LOC: M RAD 09:35 | PROVIDERS: ATTEND General Practice | DX: D15.0 Benign neoplasm of thymus (principal) ==

== ENCOUNTER → 2024-11-10 | Outpatient (CLI) | payer OTHER, MEDICARE | LOC: M ONCR 11:05 | PROVIDERS: ATTEND General Practice | DX: D15.0 Benign neoplasm of thymus (principal); Z79.899 Other long term (current) drug therapy; Z88.8 Allergy status to other drugs, medicaments and biological substances ==

== ENCOUNTER → 2024-12-28 | Outpatient (REF) | payer OTHER, MEDICARE, MEDICAID ==
[~2024-12-28] MED LIST changes: -AMIO200T49 PO; +AMIO200T54 PO; +AMIT10TA11 PO; -AMIT10TA7 PO
[2024-12-28 09:39] LABS: CALCIUM LEVEL 8.9 MG/DL (8.3-10.6); CARBON DIOXIDE LEVEL 31.0 MMOL/L (20-31); CHLORIDE LEVEL 104.0 MMOL/L (98-107); CREATININE FOR GFR 1.47 MG/DL (0.55-1.30); GLOMERULAR FILTRATION RATE 37.0 (>39); POTASSIUM SERUM 4.1 MMOL/L (3.5-5.1); SODIUM LEVEL 144.0 MMOL/L (136-145)
== END ==
PROVIDERS: ATTEND Physician Assistant
DX: N18.9 Chronic kidney disease, unspecified (principal)

== ENCOUNTER → 2025-01-09 | Outpatient (REF) | payer OTHER, MEDICARE, MEDICAID ==
[2025-01-09 10:42] LABS: CORTISOL AM 13.2 UG/DL (4.3-22.4)
[2025-01-09 10:46] LABS: THYROXINE (T4) 8.6 UG/DL (4.5-10.9)
== END ==
PROVIDERS: ATTEND Physician Assistant
DX: E27.40 Unspecified adrenocortical insufficiency (principal)

== ENCOUNTER → 2025-02-01 | Outpatient (REF) | payer OTHER, MEDICARE, MEDICAID ==
[2025-02-01 12:14] LABS: PLATELET COUNT, AUTOMATED 309 10^3/uL (150-450)
[2025-02-01 12:50] LABS: CALCIUM LEVEL 9.2 MG/DL (8.3-10.6); CARBON DIOXIDE LEVEL 29.0 MMOL/L (20-31); CHLORIDE LEVEL 102.0 MMOL/L (98-107); CREATININE FOR GFR 1.51 MG/DL (0.55-1.30); GLOMERULAR FILTRATION RATE 35.8 (>39); POTASSIUM SERUM 3.8 MMOL/L (3.5-5.1); SODIUM LEVEL 142.0 MMOL/L (136-145)
[2025-02-01 12:59] LABS: DIGOXIN LEVEL 1.9 NG/ML (0.8-2.0)
== END ==
PROVIDERS: ATTEND Physician Assistant
DX: I48.91 Unspecified atrial fibrillation (principal)

== ENCOUNTER → 2025-02-03 | Outpatient (REF) | payer OTHER, MEDICARE, MEDICAID ==
[2025-02-03 09:22] LABS: IRON (FE) 17.0 UG/DL (50-170); PERCENT SATURATION 5.1 % (13.2-45.0)
[2025-02-03 09:25] LABS: VITAMIN B12 LEVEL 352.0 PG/ML (211-911)
== END ==
PROVIDERS: ATTEND Internal Medicine
DX: D64.9 Anemia, unspecified (principal)

== ENCOUNTER → 2025-02-06 | Outpatient (REF) | payer OTHER, MEDICARE, MEDICAID ==
[2025-02-06 10:49] LABS: PLATELET COUNT, AUTOMATED 298 10^3/uL (150-450)
[2025-02-06 11:17] LABS: CALCIUM LEVEL 8.4 MG/DL (8.3-10.6); CARBON DIOXIDE LEVEL 29.0 MMOL/L (20-31); CHLORIDE LEVEL 102.0 MMOL/L (98-107); CREATININE FOR GFR 1.52 MG/DL (0.55-1.30); GLOMERULAR FILTRATION RATE 35.3 (>39); POTASSIUM SERUM 3.6 MMOL/L (3.5-5.1); SODIUM LEVEL 142.0 MMOL/L (136-145)
[2025-02-06 11:18] LABS: DIGOXIN LEVEL 1.5 NG/ML (0.8-2.0)
== END ==
PROVIDERS: ATTEND Internal Medicine
DX: K29.60 Other gastritis without bleeding (principal); Z79.899 Other long term (current) drug therapy

== ENCOUNTER → 2025-02-13 | Outpatient (REF) | payer OTHER, MEDICARE, MEDICAID ==
[2025-02-13 11:56] LABS: BASO # 0.1 10^3/uL (0.0-0.2); BASO % 0.6 % (0.0-1.0); EOS # 0.2 10^3/uL (0.0-0.5); EOS % 1.3 % (0.0-3.0); LYMPH # 1.8 10^3/uL (1.5-5.0); LYMPH % 15.6 % (24.0-44.0); MONO # 0.6 10^3/uL (0.0-0.8); MONO % 4.9 % (2.0-8.0); NEUTROPHILS # 8.8 10^3/uL (1.5-8.5); NEUTROPHILS % 77.3 % (36.0-66.0); PLATELET COUNT, AUTOMATED 320 10^3/uL (150-450)
[2025-02-13 12:18] LABS: CALCIUM LEVEL 8.9 MG/DL (8.3-10.6); CARBON DIOXIDE LEVEL 31.0 MMOL/L (20-31); CHLORIDE LEVEL 104.0 MMOL/L (98-107); CREATININE FOR GFR 1.54 MG/DL (0.55-1.30); GLOMERULAR FILTRATION RATE 34.8 (>39); POTASSIUM SERUM 3.8 MMOL/L (3.5-5.1); SODIUM LEVEL 143.0 MMOL/L (136-145)
== END ==
PROVIDERS: ATTEND Physician Assistant
DX: D72.829 Elevated white blood cell count, unspecified (principal)

== ENCOUNTER → 2025-03-02 | Outpatient (REF) | payer OTHER, MEDICARE, MEDICAID ==
[2025-03-02 15:09] LABS: IRON (FE) 16.0 UG/DL (50-170); PERCENT SATURATION 4.8 % (13.2-45.0)
== END ==
LOC: M LAB REF 14:25
PROVIDERS: ATTEND Internal Medicine
DX: D64.9 Anemia, unspecified (principal)

== ENCOUNTER → 2025-04-09 | Outpatient (CLI) | payer OTHER, MEDICAID | LOC: M RAD 11:23 | PROVIDERS: ATTEND Physician Assistant Medical | DX: R05.9 Cough, unspecified (principal); J18.9 Pneumonia, unspecified organism ==